=== PATIENT | female | born 1995 | race Caucasian/White ===

== ENCOUNTER 2018-11-24 09:12 | Emergency (ER) | payer BC ==
--- OUTSIDE RECORDS SUMMARY | 2018-11-24 09:14 | XMS REPORT | Continuity of Care Document ---
:1995 Author Organization Interface Problems Problem Status Onset Classification Date Comments Source Date Reported Discharge 06/20/2016 Katrin Diagnosis: 6 Hospital Ankle sprain BROKEN Active Katrin ANKLE//FALL 6 Hospital Medications Medication Details Route Status Patient Ordering Order Source Instructions Provider Date Methocarbamol 1,000 mg=2 Active Katrin 500 MG Oral tab, PO, 016 [facility] Tablet [Robaxin] QID, X 3 day, # 24 tab, 0 Refill(s) Famotidine 20 MG 20 mg=1 Active Katrin Oral Tablet tab, PO, 016 Hospital [Pepcid] BID, # 14 tab, 0 Refill(s) ibuprofen 800 mg 800 mg, Active Katrin oral tablet PO, TID, 016 [facility] PRN Pain, Take with food, X 3 day, # 10 tab, 0 Refill(s) Famotidine 20 MG 20 mg, 1 Inactive Katrin Oral Tablet tab, 016 Hospital [Pepcid] Route: PO, Drug form: TAB, ONCE, Dosing Weight 90.909, kg, Start date: 06/17/16 20:29:00 CDT, Stop date: 06/17/16 20:29:00 CDTNotes: (Same as: Pepcid) Robaxin 1,000 mg, Inactive Katrin 2 tab, 016 Hospital Route: PO, Drug form: TAB, ONCE, Dosing Weight 90.909, kg, Priority: STAT, Start date: 06/17/16 20:29:00 CDT, Stop date: 06/17/16 20:29:00 CDTNotes: (Same as:Robaxin ) Ibuprofen 800 mg, 1 Inactive Katrin tab, 016 Hospital Route: PO, Drug form: TAB, ONCE, Dosing Weight 90.909, kg, Priority: STAT, Start date: 06/17/16 20:29:00 CDT, Stop date: 06/17/16 20:29:00 CDTNotes: (Same as: Vale) Allergies, Adverse Reactions, Alerts Substance Category Reaction Severity Reaction Status Date Comments Source type Reported Immunizations Immunization Date Given Site Status Last Updated Comments Source Results Order Results Value Reference Date Interpretation Comments Source Name Range Ankle 3 Ankle 3 XR RIGHT ANKLE 3V [facility] views views DX 2016 - Hospital DX HISTORY: Right ankle pain after a fall. Read by: Alfredo May MD Dictated Date/time: 06/17/16 18:44 Electronically Signed by: Alfredo May MD 06/17/16 18:46 FINAL REPORT COMPARISON: None. FINDINGS: AP, lateral and oblique images of the right ankle demonstrate no acute bone or joint abnormality. IMPRESSION: No acute finding. SL: WR2-M Vital Signs Vital Sign Value Date Comments Source Weight 90.909 06/17/2016 [facility] BMI Calculated 34.4 06/17/2016 [facility] Height 162.56 cm 06/17/2016 [facility] Respitory Rate 20 06/17/2016 [facility] Heart Rate 85 06/17/2016 [facility] Temperature Oral (F) 98.2 F 06/17/2016 [facility] Systolic (mm Hg) 134 06/17/2016 [facility] Diastolic (mm Hg) 92 06/17/2016 [facility] Encounters Location Location Encounter Encounter Reason Attending ADM DC Status Source Details Type Number For Provider Date Date Visit [facility] Emergency [id number] Alvin 06/17 06/18 [facility] Arun Hoskins /2015 [facility] Procedures Procedure Code Date Perfomer Comments Source
--- NOTE | 2018-11-24 09:33 | ER ---
Nurse's Notes [facility] Name: Gary Mata Age: 23 yrs Sex: Female : 1995 Arrival Date: 11/24/2018 Time: 09:13 Bed 15 Private MD: Diego Elizondo B Diagnosis: Encounter for screening, unspecified Presentation: 11/24 09:23 Presenting complaint: Spotty vaginal bleeding x 5 days, here for HCG recheck. hb Transition of care: patient was not received from another setting of care. Onset of symptoms was November 24, 2018. Risk Assessment: Do you want to hurt yourself or someone else? Patient reports no desire to harm self or others. Initial Sepsis Screen: Does the patient meet any 2 criteria? No. Patient's initial sepsis screen is negative. Does the patient have a suspected source of infection? No. Patient's initial sepsis screen is negative. Care prior to arrival: None. 09:23 Method Of Arrival: Ambulatory hb 09:23 Acuity: CARLOS 4 hb Historical: - Allergies: 09:24 No Known Allergies; hb - Home Meds: 09:24 None [Active]; hb - PMHx: 09:24 None; hb - PSHx: 09:24 None; hb - Immunization history:: Adult Immunizations up to date. Vital Signs: 09:22 BP 146 / 96; Pulse 99; Resp 16; Temp 98.2; Pulse Ox 100% on R/A; Pain 0/10; hb ED Course: 09:13 Patient arrived in ED. as 09:14 Diego Elizondo MD is Private Physician. as 09:15 [facility]C [facility] kb 09:15 Ming Krishna MD is Attending Physician. kb 09:24 Triage completed. hb 09:31 Diego Elizondo MD is Referral Physician. kb Administered Medications: No medications were administered Outcome: :31 Discharge ordered by . kb 09:48 Patient left the ED. em Signatures: Sarina Justin FNP-C FNP-Miguelito Yip, IRON ASSORTER IRON ASSORTER em Giovanna Gomes Heather, RN RN hb
--- NOTE | 2018-11-24 09:33 | EDPHYS ---
Physician Documentation [facility] Name: Gary Mata Age: 23 yrs Sex: Female : 1995 Arrival Date: 11/24/2018 Time: 09:13 Bed 15 Private MD: Diego Elizondo B ED Physician Ming Krishna HPI: 11/24 09:27 This 23 yrs old Female presents to ER via Ambulatory with complaints of Needs kb HCG rechecked. 09:27 Pt has outpatient order for a HCG to be drawn. Order does not say urgent or stat so kb registration told the patient that it would have to be done Mon-Monday or she could sign into the ER. Pt reports she was seen by Dr Elizondo last week for spotting that started on Monday. States he could not detect FHT in office so she was sent for an US and HCG level. No FHT detected during US. Had HCG drawn on and was told by Dr Elizondo to have second level drawn today. Pt denies any new or worsening symptoms. . Severity of symptoms: At their worst the symptoms were mild in the emergency department the symptoms are unchanged. The patient has not experienced similar symptoms in the past. The patient has been recently seen by a physician: Dr. Elizondo. Historical: - Allergies: 09:24 No Known Allergies; hb - Home Meds: 09:24 None [Active]; hb - PMHx: 09:24 None; hb - PSHx: 09:24 None; hb - Immunization history:: Adult Immunizations up to date. ROS: 09:26 Constitutional: Negative for fever, chills, and weight loss, Cardiovascular: Negative kb for chest pain, palpitations, and edema, Respiratory: Negative for shortness of breath, cough, wheezing, and pleuritic chest pain, Abdomen/GI: Negative for abdominal pain, nausea, vomiting, diarrhea, and constipation, MS/Extremity: Negative for injury and deformity, Skin: Negative for injury, rash, and discoloration, Neuro: Negative for headache, weakness, numbness, tingling, and seizure. 09:26 : Positive for vaginal bleeding. Exam: 09:27 Constitutional: This is a well developed, well nourished patient who is awake, alert, kb and in no acute distress. Head/Face: Normocephalic, atraumatic. Chest/axilla: Normal chest wall appearance and motion. Nontender with no deformity. No lesions are appreciated. Cardiovascular: Regular rate and rhythm with a normal S1 and S2. No gallops, murmurs, or rubs. Normal PMI, no JVD. No pulse deficits. Respiratory: Lungs have equal breath sounds bilaterally, clear to auscultation and percussion. No rales, rhonchi or wheezes noted. No increased work of breathing, no retractions or nasal flaring. Abdomen/GI: Soft, non-tender, with normal bowel sounds. No distension or tympany. No guarding or rebound. No evidence of tenderness throughout. Skin: Warm, dry with normal turgor. Normal color with no rashes, no lesions, and no evidence of cellulitis. MS/ Extremity: Pulses equal, no cyanosis. Neurovascular intact. Full, normal range of motion. Neuro: Awake and alert, GCS 15, oriented to person, place, time, and situation. Cranial nerves II-XII grossly intact. Motor strength 5/5 in all extremities. Sensory grossly intact. Cerebellar exam normal. Normal gait. Vital Signs: 09:22 BP 146 / 96; Pulse 99; Resp 16; Temp 98.2; Pulse Ox 100% on R/A; Pain 0/10; hb MDM: 09:24 Patient medically screened. kb 09:24 Data reviewed: vital signs, nurses notes. Data interpreted: Pulse oximetry: on room air kb is 100 %. Interpretation: normal. Counseling: I had a detailed discussion with the patient and/or guardian regarding: the historical points, exam findings, and any diagnostic results supporting the discharge/admit diagnosis, the need for outpatient follow up, an OB/Gyne specialist, to return to the emergency department if symptoms worsen or persist or if there are any questions or concerns that arise at home. ED course: Pt does not want to have an ER charge for a repeat lab. Would rather call her OB. Educated that we would be happy to repeat her Hcg if she would like to have it done now. Pt does not want it done in the ER. . Administered Medications: No medications were administered Disposition: 09:31 Encounter for routine lab. karen Disposition: 11/24/18 09:31 Discharged to Home. Impression: Encounter for screening, unspecified. - Condition is Stable. - Medication Reconciliation Form, Thank You Letter, Antibiotic Education, Prescription Opioid Use form. - Follow up: Emergency Department; When: As needed; Reason: Worsening of condition. Follow up: Diego Elizondo MD; When: 1 - 2 days; Reason: Recheck today's complaints, Continuance of care, Re-evaluation by your physician. Addendum: 11/26/2018 07:31 Co-signature as Attending Physician, Ming Krishna MD I agree with the assessment and c pond plan of care. Signatures: Sarina Justin, TRANSPORTATION AIDE-C TRANSPORTATION AIDE-Ckb Ming Krishna MD MD cha Munoz, Edgar, RAILROAD HAND RAILROAD HAND em Amber Booker, RN RN Corrections: (The following items were deleted from the chart) 11/24 09:48 09:31 11/24/2018 09:31 Discharged to Home. Impression: Encounter for screening, em unspecified. Condition is Stable. Forms are Medication Reconciliation Form, Thank You Letter, Antibiotic Education, Prescription Opioid Use. Follow up: Emergency Department; When: As needed; Reason: Worsening of condition. Follow up: Diego Elizondo; When: 1 - 2 days; Reason: Recheck today's complaints, Continuance of care, Re-evaluation by your physician. kb
[2018-11-24 09:52] VITALS: BP 146/96; TEMP 98.2; O2SAT 100
== END 2018-11-24 09:48 | disposition home or self-care (01) ==
LOC: ER 09:12
DX: Z13.9 Encounter for screening, unspecified (principal)
CPT/HCPCS: 99281

== ENCOUNTER 2018-11-25 17:42 | Observation (INO) | payer BC ==
--- OUTSIDE RECORDS SUMMARY | 2018-11-25 17:43 | XMS REPORT | Continuity of Care Document ---
:1995 Author Organization Interface Problems Problem Status Onset Classification Date Comments Source Date Reported Discharge 06/20/2016 Katrin Diagnosis: 6 Hospital Ankle sprain BROKEN Active Katrin ANKLE//FALL 6 Hospital Medications Medication Details Route Status Patient Ordering Order Source Instructions Provider Date Methocarbamol 1,000 mg=2 Active Katrin 500 MG Oral tab, PO, 016 [facility] Tablet [Robaxin] QID, X 3 day, # 24 tab, 0 Refill(s) Famotidine 20 MG 20 mg=1 Active Katrin Oral Tablet tab, PO, 016 Hospital [Pepcid] BID, # 14 tab, 0 Refill(s) ibuprofen 800 mg 800 mg, Active Katirn oral tablet PO, TID, 016 [facility] PRN Pain, Take with food, X [...] 3 Ankle 3 XR RIGHT ANKLE 3V [facility] views views DX 2016 - Hospital [...] Value Date Comments Source Weight 90.909 06/17/2016 [facility] BMI Calculated 34.4 06/17/2016 [facility] Height 162.56 cm 06/17/2016 [facility] Respitory Rate 20 06/17/2016 [facility] Heart Rate 85 06/17/2016 [facility] Temperature Oral (F) 98.2 F 06/17/2016 [facility] Systolic (mm Hg) 134 06/17/2016 [facility] Diastolic (mm Hg) 92 06/17/2016 [facility] Encounters Location Location Encounter Encounter Reason Attending ADM DC Status Source Details Type Number For Provider Date Date Visit [facility] Emergency [id number] Alvin 06/17 06/18 [facility] Arun Hoskins /2015 [facility] Procedures Procedure Code Date Perfomer Comments Source
[2018-11-25 18:39] LABS: Absolute Lymphocytes (CBC) 1.7 K/uL (0.7-4.9); Absolute Monocytes 0.7 K/uL (0.1-1.3); Absolute Neutrophil 6.3 K/uL (1.8-8.0); Basophils % 0.4 % (0-1.3); Eosinophils % 1.6 % (0-4.4); Hematocrit 42.2 % (36.0-45.0); Lymphocytes % 18.6 % (15.3-44.8); MPV 9.3 fL (7.6-11.3); Monocytes % 8.4 % (3.3-12.3); RBC Red Blood Cell Count 4.99 M/uL (3.86-4.86)
[2018-11-25] MEDS ORDERED: NA CHLORIDE 0.9% 1,000 ML ONE (18:43)
[2018-11-25 19:10] LABS: BUN Blood Urea Nitrogen 7 mg/dL (7-18); Bicarbonate 27 mmol/L (21-32); Glucose Level 102 mg/dL (74-106); HCG, Quantitative 1801 mIU/mL (1-3); Potassium 3.8 mmol/L (3.5-5.1); Sodium Level 141 mmol/L (136-145)
--- NOTE | 2018-11-25 19:10 | RAD REPORT ---
EXAM DESCRIPTION: US - Transvaginal OB - 11/25/2018 6:53 pm CLINICAL HISTORY: ABD CRAMPING, COMPARISON: Transvaginal OB dated 11/22/2018 FINDINGS: A single gestational sac is seen within the uterus. The shape of the sac is irregular and low in position near the cervical internal os. Fluid and slight widening of the internal os is presen t up to 3 mm. Within the sac is a single pole with crown-rump length of 10 mm, correlating to e stimated gestational age of 7 weeks 1 day gestational age. Despite prolonged sonographic assessment, no cardiac activity is seen in the embryo. The placenta is not yet developed due to early gestational age. The maternal adnexa are within normal limits. IMPRESSION: Findings are most compatible with inevitable spontaneous .
[2018-11-25 19:13] LABS: Urine Appearance CLOUDY; Urine Blood 3+ (NEG); Urine Color RED; Urine Glucose NEGATIVE (NEG); Urine Protein 1+ (NEG); Urine Specific Gravity 1.025 (1.005-1.030); Urine pH 5.5 (5.0-7.0)
[2018-11-25] MEDS ORDERED: ONDANSETRON 4 MG/2 ML VIAL ONE (19:17)
[2018-11-25] MEDS ORDERED: MORPHINE 4 MG/ML SYR ONE ×2 (19:17→19:46)
[2018-11-25 19:19] LABS: Urine Bilirubin NEGATIVE (NEG)
[2018-11-25 19:20] LABS: Urine Microscopic Reflex ORDER UMIC
[2018-11-25 19:26] LABS: Urine RBC LOADED /HPF (NONE SEEN)
--- NOTE | 2018-11-25 19:29 | EDPHYS ---
Physician Documentation [facility] Name: Gary Mata Age: 23 yrs Sex: Female : 1995 Arrival Date: 11/25/2018 Time: 17:42 Bed 26 Private MD: Diego Elizondo B ED Physician Ming Krishna HPI: 11/25 19:04 This 23 yrs old Female presents to ER via Ambulatory with complaints of fabi Vaginal Bleeding, + Preg <12wks. 19:04 The patient presents to the emergency department with vaginal bleeding, that is heavy. fabi The estimated gestational age is 11 weeks. course: care: private OB physician, Dr. Dr. ELIZONDO. Previous pregnancies: the patient has never been . Associated signs and symptoms: The patient has no apparent associated signs or symptoms. 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 - Social history:: Smoking status: Patient/guardian denies using tobacco. - Ebola Screening: : No symptoms or risks identified at this time. - Family history:: not pertinent. ROS: 19:04 Constitutional: Negative for fever, chills, and weight loss, Eyes: Negative for injury, fabi pain, redness, and discharge, ENT: Negative for injury, pain, and discharge, Neck: Negative for injury, pain, and swelling, Cardiovascular: Negative for chest pain, palpitations, and edema, Respiratory: Negative for shortness of breath, cough, wheezing, and pleuritic chest pain, Abdomen/GI: Negative for abdominal pain, nausea, vomiting, diarrhea, and constipation, Back: Negative for injury and pain, MS/Extremity: Negative for injury and deformity, Skin: Negative for injury, rash, and discoloration, Neuro: Negative for headache, weakness, numbness, tingling, and seizure, Psych: Negative for depression, anxiety, suicide ideation, homicidal ideation, and hallucinations, Allergy/Immunology: Negative for hives, rash, and allergies, Endocrine: Negative for neck swelling, polydipsia, polyuria, polyphagia, and marked weight changes, Hematologic/Lymphatic: Negative for swollen nodes, abnormal bleeding, and unusual bruising. 19:04 : Positive for pelvic pain, vaginal bleeding. Exam: 19:04 Constitutional: This is a well developed, well nourished patient who is awake, alert, fabi and in no acute distress. Head/Face: Normocephalic, atraumatic. Eyes: Pupils equal round and reactive to light, extra-ocular motions intact. Lids and lashes normal. Conjunctiva and sclera are non-icteric and not injected. Cornea within normal limits. Periorbital areas with no swelling, redness, or edema. ENT: Nares patent. No nasal discharge, no septal abnormalities noted. Tympanic membranes are normal and external auditory canals are clear. Oropharynx with no redness, swelling, or masses, exudates, or evidence of obstruction, uvula midline. Mucous membranes moist. Neck: Trachea midline, no thyromegaly or masses palpated, and no cervical lymphadenopathy. Supple, full range of motion without nuchal rigidity, or vertebral point tenderness. No Meningismus. Chest/axilla: Normal chest wall appearance and motion. Nontender with no deformity. No lesions are appreciated. Cardiovascular: Regular rate and rhythm with a normal S1 and S2. No gallops, murmurs, or rubs. Normal PMI, no JVD. No pulse deficits. Respiratory: Lungs have equal breath sounds bilaterally, clear to auscultation and percussion. No rales, rhonchi or wheezes noted. No increased work of breathing, no retractions or nasal flaring. Abdomen/GI: Soft, non-tender, with normal bowel sounds. No distension or tympany. No guarding or rebound. No evidence of tenderness throughout. Back: No spinal tenderness. No costovertebral tenderness. Full range of motion. Skin: Warm, dry with normal turgor. Normal color with no rashes, no lesions, and no evidence of cellulitis. MS/ Extremity: Pulses equal, no cyanosis. Neurovascular intact. Full, normal range of motion. Neuro: Awake and alert, GCS 15, oriented to person, place, time, and situation. Cranial nerves II-XII grossly intact. Motor strength 5/5 in all extremities. Sensory grossly intact. Cerebellar exam normal. Normal gait. Psych: Awake, alert, with orientation to person, place and time. Behavior, mood, and affect are within normal limits. 19:22 : Pelvic Exam: External exam: is normal, Speculum exam: mild bleeding, moderate fabi bleeding, bimanual exam reveals os that is open, Gravid exam: Fundal height: not consistent with gestational age, Bladder: is normal. Vital Signs: 17:53 Pulse 87; Resp 16; Temp 99.4; Pulse Ox 98% on R/A; Weight 108.86 kg; Height 5 ft. 6 in. la1 (167.64 cm); Pain 7/10; 17:54 BP 136 / 98; la1 18:50 BP 104 / 87; Pulse 83; Resp 18 S; Pulse Ox 100% on R/A; ca1 19:53 BP 122 / 87; Pulse 78; Resp 18 S; Pulse Ox 100% on R/A; ca1 17:53 Body Mass Index 38.74 (108.86 kg, 167.64 cm) la1 MDM: 17:56 Patient medically screened. [facility] 19:06 Data reviewed: vital signs, nurses notes, lab test result(s), radiologic studies, [facility] ultrasound. 11/25 18:00 Order name: Quantitative Hcg; Complete Time: 19:19 [facility] 11/25 18:00 Order name: Abo/rh Typing; Complete Time: 18:58 [facility] 11/25 18:00 Order name: Basic Metabolic Panel; Complete Time: 19:19 [facility] 11/25 18:00 Order name: CBC with Diff; Complete Time: 18:58 [facility] 11/25 18:00 Order name: Urine Culture [facility] 11/25 18:43 Order name: UA bd 11/25 18:00 Order name: US Transvaginal Ob; Complete Time: 19:19 [facility] 11/25 19:21 Order name: Urine Microscopic Only [facility] 11/25 19:49 Order name: ABO/RH no charge [facility] 11/25 18:00 Order name: Urine Test (obtain specimen); Complete Time: 18:55 [facility] 11/25 18:00 Order name: IV Saline Lock; Complete Time: 18:28 [facility] 11/25 18:00 Order name: Labs collected and sent; Complete Time: 18:28 [facility] 11/25 18:00 Order name: NPO; Complete Time: 18:29 [facility] 11/25 18:00 Order name: Urine Dipstick-Ancillary (obtain specimen); Complete Time: 18:55 [facility] 11/25 18:43 Order name: Labs - recollect needed; Complete Time: 19:09 11/25 19:07 Order name: Pelvic Exam Setup; Complete Time: 19:21 [facility] Administered Medications: 18:20 Drug: NS 0.9% 1000 ml Route: IV; Rate: 1 bolus; Site: right antecubital; ca1 19:20 Follow up: Response: No adverse reaction; IV Status: Completed infusion ca1 19:10 Drug: Zofran 4 mg Route: IVP; Site: right antecubital; ca1 20:09 Follow up: Response: No adverse reaction; Nausea is decreased ca1 19:12 Drug: morphine 4 mg Route: IVP; Site: right antecubital; ca1 19:40 Follow up: Response: Pain is unchanged, physician notified ca1 19:41 Drug: Rocephin - (cefTRIAXone) 1 grams Route: IVPB; Infused Over: 30 mins; Site: right ca1 antecubital; 20:09 Follow up: IV Status: IVP per pharmacy protocol ca1 19:41 Drug: morphine 4 mg Route: IVP; Site: right antecubital; ca1 20:09 Follow up: Response: No adverse reaction; Pain is decreased ca1 19:50 Drug: Lactated Ringers Solution 1000 ml Route: IV; Rate: 125 ml/hr; Site: right ca1 antecubital; 20:07 Follow up: Response: Med continued at admission ca1 20:08 Follow up: IV Status: Infusion continued upon admission ca1 19:50 Drug: Pitocin 20 units Route: IV; Rate: calculated rate; Site: right antecubital; ca1 20:08 Follow up: IV Status: Infusion continued upon admission ca1 Disposition: 11/25/18 19:28 Hospitalization ordered by Diego Elizondo for Observation. Preliminary diagnosis is Incomplete spontaneous with other complications - PAIN. - [facility]. - Status is Observation. ca1 - Condition is Stable. - Problem is new. - Symptoms have improved. UTI on Admission? No Signatures: Dispatcher [employer] EDMS Starr Syed Corey, MD MD cha Attema, Lee RN RN la1 Dary Velez RN RN Leonila Vela RN RN ca1 Corrections: (The following items were deleted from the chart) 19:49 19:28 Hospitalization Ordered by Diego Elizondo MD for Observation. Preliminary cg diagnosis is Incomplete spontaneous with other complications - PAIN. Bed [facility]. Status is Observation. Condition is Stable. Problem is new. Symptoms have improved. UTI on Admission? No. fabi 20:37 19:49 11/25/2018 19:28 Hospitalization Ordered by Diego Elizondo MD for Observation. ca1 Preliminary diagnosis is Incomplete spontaneous with other complications - PAIN. Bed requested for [facility]. Status is Observation. Condition is Stable. Problem is new. Symptoms have improved. UTI on Admission? No. cg
--- NOTE | 2018-11-25 19:29 | ER ---
Nurse's Notes [facility] Name: Gary Mata Age: 23 yrs Sex: Female : 1995 Arrival Date: 11/25/2018 Time: 17:42 Bed 26 Private MD: Diego Elizondo B Diagnosis: Incomplete spontaneous with other complications-PAIN Presentation: 11/25 17:51 Presenting complaint: Patient states: I have been spotting since Monday and cramping la1 since this morning but the pain got worse around 1600, the spotting has also increased. Transition of care: patient was not received from another setting of care. Onset of symptoms was November 25, 2018. Risk Assessment: Do you want to hurt yourself or someone else? Patient reports no desire to harm self or others. Initial Sepsis Screen: Does the patient meet any 2 criteria? No. Patient's initial sepsis screen is negative. Does the patient have a suspected source of infection? No. Patient's initial sepsis screen is negative. Care prior to arrival: None. 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 - Social history:: Smoking status: Patient/guardian denies using tobacco. - Ebola Screening: : No symptoms or risks identified at this time. - Family history:: not pertinent. Screenin:55 Abuse screen: Denies threats or abuse. Denies injuries from another. Nutritional ca1 screening: No deficits noted. Tuberculosis screening: No symptoms or risk factors identified. Fall Risk None identified. Assessment: 17:55 General: Appears in no apparent distress. comfortable, Behavior is calm, cooperative, ca1 appropriate for age. Pain: Complains of pain in right lower quadrant and left lower quadrant Pain does not radiate. Pain currently is 7 out of 10 on a pain scale. Quality of pain is described as crampy, Pain began 2-3 days ago. Neuro: Level of Consciousness is awake, alert, obeys commands, Oriented to person, place, time, situation. Cardiovascular: Heart tones S1 S2 present Capillary refill < 3 seconds Patient's skin is warm and dry. Respiratory: Airway is patent Respiratory effort is even, unlabored, Respiratory pattern is regular, symmetrical, Breath sounds are clear bilaterally. GI: Abdomen is round non-distended, Bowel sounds present X 4 quads. Abd is soft X 4 quads Abdomen is tender to palpation in right lower quadrant and left lower quadrant Reports cramping, nausea. : Reports vaginal bleeding that is with clots, spotty, since . EENT: No deficits noted. No signs and/or symptoms were reported regarding the EENT system. Derm: Skin is intact, is healthy with good turgor, Skin is pink, warm \T\ dry. Musculoskeletal: Circulation, motion, and sensation intact. Capillary refill < 3 seconds. 18:50 Reassessment: Patient appears in no apparent distress at this time. Patient and/or ca1 family updated on plan of care and expected duration. Pain level reassessed. Patient is alert, oriented x 3, equal unlabored respirations, skin warm/dry/pink. 19:45 Reassessment: Patient appears in no apparent distress at this time. Patient and/or ca1 family updated on plan of care and expected duration. Pain level reassessed. Patient is alert, oriented x 3, equal unlabored respirations, skin warm/dry/pink. Vital Signs: 17:53 Pulse 87; Resp 16; Temp 99.4; Pulse Ox 98% on R/A; Weight 108.86 kg; Height 5 ft. 6 in. la1 (167.64 cm); Pain 7/10; 17:54 BP 136 / 98; la1 18:50 BP 104 / 87; Pulse 83; Resp 18 S; Pulse Ox 100% on R/A; ca1 19:53 BP 122 / 87; Pulse 78; Resp 18 S; Pulse Ox 100% on R/A; ca1 17:53 Body Mass Index 38.74 (108.86 kg, 167.64 cm) la1 Vitals: 18:30 Heart Tones none. ca1 ED Course: 17:42 Patient arrived in ED. as 17:43 Diego Elizondo MD is Private Physician. as 17:52 Triage completed. la1 17:53 Arm band placed on left wrist. la1 17:55 Patient has correct armband on for positive identification. Placed in gown. Bed in low ca1 position. Call light in reach. Side rails up X 1. Pulse ox on. NIBP on. Warm blanket given. 17:56 Ming Krishna MD is Attending Physician. [facility] 18:06 Leonila Vela RN is Primary Nurse. ca1 18:30 Initial lab(s) drawn, by me, sent to lab. Inserted saline lock: 20 gauge in right jp3 antecubital area, using aseptic technique. Blood collected. 18:45 Urine collected: clean catch specimen, clear, tea colored, blood tinged. jp3 18:52 US Transvaginal Ob In Process Unspecified. EDMS 19:00 Assist provider with pelvic exam: Set up pelvic tray. Performed by Ming Krishna MD ca1 Vaginal packing inserted. Patient tolerated. 19:05 Repeat lab(s) drawn. by me, sent to lab. jp3 19:26 Diego Elizondo MD is Hospitalizing Provider. [facility] 20:04 Patient admitted, IV remains in place. ca1 Administered Medications: 18:20 Drug: NS 0.9% 1000 ml Route: IV; Rate: 1 bolus; Site: right antecubital; ca1 19:20 Follow up: Response: No adverse reaction; IV Status: Completed infusion ca1 19:10 Drug: Zofran 4 mg Route: IVP; Site: right antecubital; ca1 20:09 Follow up: Response: No adverse reaction; Nausea is decreased ca1 19:12 Drug: morphine 4 mg Route: IVP; Site: right antecubital; ca1 19:40 Follow up: Response: Pain is unchanged, physician notified ca1 19:41 Drug: Rocephin - (cefTRIAXone) 1 grams Route: IVPB; Infused Over: 30 mins; Site: right ca1 antecubital; 20:09 Follow up: IV Status: IVP per pharmacy protocol ca1 19:41 Drug: morphine 4 mg Route: IVP; Site: right antecubital; ca1 20:09 Follow up: Response: No adverse reaction; Pain is decreased ca1 19:50 Drug: Lactated Ringers Solution 1000 ml Route: IV; Rate: 125 ml/hr; Site: right ca1 antecubital; 20:07 Follow up: Response: Med continued at admission ca1 20:08 Follow up: IV Status: Infusion continued upon admission ca1 19:50 Drug: Pitocin 20 units Route: IV; Rate: calculated rate; Site: right antecubital; ca1 20:08 Follow up: IV Status: Infusion continued upon admission ca1 Outcome: 19:28 Decision to Hospitalize by Provider. [facility] 20:10 Admitted to L \T\ D, accompanied by nurse, family with patient, via stretcher, room [address], with chart, Report called to KYLE Veronica 20:10 Condition: stable 20:10 Instructed on the need for admit. 20:37 Patient left the ED. ca1 Signatures: Dispatcher [employer] EDMS Ming Krishna MD MD cha Martinez, Amelia as Attema, Lee, RN RN ally1 Rio Minor jp3 Leonila Vela RN RN ca1 Corrections: (The following items were deleted from the chart) 20:15 20:10 Admitted to L \T\ D, accompanied by nurse, family with patient, via stretcher, room ca1 297 [facility], ca1
[2018-11-25 19:31] LABS: Calcium Oxalate Crystals- Ur FEW (NONE SEEN); Urine Bacteria 20-50 /HPF (<20); Urine Culture Reflex Order NOT NEEDED
[2018-11-25] MEDS ORDERED: OXYTOCIN 10 UNIT/ML ML IV ONE (19:56)
[2018-11-25] MEDS ORDERED: Ringers Lactate 1,000 ML IV ONE (19:57)
[2018-11-25] MEDS ORDERED: CEFTRIAXONE/SWI 1gm 1 GM/10 ML SYR ONE (19:57)
[2018-11-25 20:46] VITALS: O2SAT 100
[2018-11-25] MEDS ORDERED: ACETAMINOPHEN 500 MG TAB PO PRN (21:01)
[2018-11-25] MEDS ORDERED: Ringers Lactate 1,000 ML IV SCH (21:01)
[2018-11-25] MEDS ORDERED: ONDANSETRON 4 MG/2 ML VIAL IV PRN (21:01)
[2018-11-25] MEDS ORDERED: KETOROLAC 30 MG/ML INJ IV ONE (21:04)
[2018-11-25 22:07] VITALS: BMI 38.7
[2018-11-25] MEDS ORDERED: PROMETHAZINE 25 MG/ML VIAL IM ONE (22:15)
[2018-11-25] MEDS: MORPHINE 4 MG/ML SYR IV PRN (22:29)
[2018-11-26] MEDS ORDERED: PROMETHAZINE HCL 50 MG/ML AMP IM PRN (00:12)
[2018-11-26 04:32] VITALS: TEMP 98
[2018-11-26 05:31] LABS: Absolute Lymphocytes (CBC) 1.7 K/uL (0.7-4.9); Absolute Monocytes 0.6 K/uL (0.1-1.3); Absolute Neutrophil 4.8 K/uL (1.8-8.0); Basophils % 0.5 % (0-1.3); Eosinophils % 1.5 % (0-4.4); Hematocrit 35.9 % (36.0-45.0); MPV 8.8 fL (7.6-11.3); Monocytes % 8.8 % (3.3-12.3); RBC Red Blood Cell Count 4.16 M/uL (3.86-4.86)
[2018-11-26 05:49] LABS: BUN Blood Urea Nitrogen 7 mg/dL (7-18); Bicarbonate 27 mmol/L (21-32); Glucose Level 87 mg/dL (74-106); Potassium 3.8 mmol/L (3.5-5.1); Sodium Level 141 mmol/L (136-145)
[2018-11-26] MEDS: MORPHINE 4 MG/ML SYR IV PRN (07:25)
[2018-11-26 07:51] VITALS: BP 96/68
--- NOTE | 2018-11-26 08:01 | RAD REPORT ---
EXAM DESCRIPTION: US - Transvaginal OB - 11/26/2018 7:39 am CLINICAL HISTORY: Vaginal bleeding, incomplete miscarriage COMPARISON: None. FINDINGS: Uterus is 9.4 x 4.5 x 8.1 cm. No myometrial mass. Neither ovary was identifiable. No adnexal mass seen. No blood or fluid in the cul de sac. No gestational sac or sac remnant identified in the endometrial cavity. Hemorrhagic byproducts are pr esent in the lower uterine segment and cervical canal. IMPRESSION: Hemorrhagic byproducts in the cervical canal with no gestational sac or sac remnant iden tified. Nonvisualization of the ovaries. No adnexal masses. No blood or fluid in the cul de sac.
--- NOTE | 2018-11-26 11:32 | PREOPHP ---
Date of Admission: 11/25/2018 A 23-year-old primigravida, first trimester, incomplete , was seen in the emergency room by Adi Krishna, transferred upstairs. She was having significant discomfort, mild bleeding. She was st arted on oxytocin. She passed a fairly large clot and then after that basically nothing there. Pain level went down. The patient is resting comfortably this morning. All vital signs are normal. H a nd H went from 42 to 35, which I think she was hemoconcentrated on admission. She is Rh positive. F amily history is noncontributory. Physical exam is basically completely normal. Diagnosis: First trimester incomplete , admitted for observation, possible surgical interven tion. JEANNETTE/CARSON Voice ID: [id number]
--- NOTE | 2018-11-26 11:42 | DS ---
Date of Discharge: 11/26/2018 Hospital Course: A 23-year-old primigravida, less than 12 weeks' gestation. The patient was seen in the emergency room with cramping and bleeding, had been seen earlier in the week in my office. Rh p ositive blood type. Ultrasound demonstrated a 7-week irregular sac in the lower uterine segment. Sh robert was having significant pain, was admitted for observation. Pitocin was started and the uterus evac uated itself this morning. Minimal bleeding. Vital signs are all stable. Pain level was basically 0. After consultation, we will get an ultrasound and if the uterus is empty, we will dismiss the pat ient. She is to take doxycycline twice a day for 3 days, to be seen in my office later this week or early next week. To report any temperature elevation of 100 degrees or greater, severe pain, heavy b leeding, or any other type of abnormalities. Final Diagnoses: First trimester, now apparently complete spontaneous , Rh positive, therefo re, no RhoGAM needed. Doxycycline for prophylaxis. JEANNETTE/CARSON Voice ID: [id number] Report ID: [id number]
[2018-11-26] MEDS ORDERED: OXYTOCIN/LR 20 UNIT/1,000 ML BAG IV SCH (21:00)
== END 2018-11-26 09:10 | disposition home or self-care (01) ==
LOC: ER 17:42 → ERHOLD 19:32 → 2ND-WC 20:02
PROVIDERS: ADMIT Specialist; ATTEND Specialist
DX: O03.9 Complete or unspecified spontaneous abortion without complication (principal); E03.9 Hypothyroidism, unspecified
CPT/HCPCS: 36415; 76817; 80048; 81003; 81015; 84702; 85025; 86900; 86901; 87086; 87088; 96361; 96365; 96375; 99285; G0378; J0696; J2405; J2550; J2590; J7030

== ENCOUNTER 2020-04-21 15:39 | Inpatient (IN) | payer BC, OTHER ==
[~2020-04-21 15:39] MED LIST: BUTORPHANOL 1 MG/ML INJ IV PRN; CARBOPROST TROME 250 MCG/ML IM PRN; METHYLERGONOVINE 0.2MG/ML AMP IM PRN; PROMETHAZINE INJ 25 MG/ML AMP IV PRN; Ringers Lactate 1,000 ML IV PRN
--- OUTSIDE RECORDS SUMMARY | 2020-04-21 15:41 | XMS REPORT | Continuity of Care Document ---
:1995 Author Organization [employer] Care Team Providers Name Role Phone [facility] Unavailable Un available Problems Problem Status Onset Classification Date Comments Sourc e Date Reported Discharge 06/20/2016 KATINA Wilkes Diagnosis: 6 Hospital Ankle sprain BROKEN Active Katrin ANKLE//FALL 6 Hospital Medications Medication Details Route Status Patient Ordering Order Source Instructions Provider Date Methocarbamol 1,000 mg = Active Katrin 500 MG Oral 2 tab, PO, [address] [place] [address] Tablet [Robaxin] QID, X 3 day, # 24 tab, 0 Refill(s) Famotidine 20 MG 20 mg = 1 Active Ka ty Oral Tablet tab, PO, [address] [place] [address] [Pepcid] BID, # 14 tab, 0 Refill(s) ibuprofen 800 mg 800 mg, Active Katrin oral tablet PO, TID, [address] [place] [address] PRN Pain, Take with food, X 3 day, # 10 tab, 0 Refill(s) Famotidine 20 MG Notes: Inactive Lata y Oral Tablet (Same as: [address] [place] [address] [Pepcid] Pepcid) Robaxin Notes: Inactive Katrin (Same [address] [place] [address] as:Robaxin ) Ibuprofen Notes: Inactive Katrin (Same as: [address] [place] [address] Motrin) Allergies, Adverse Reactions, Alerts No Known Medication Allergies Immunizations No Data Provided for This Section Results No Data Provided for This Section Pathology Reports No Data Provided for This Section Diagnostic Reports Report Value Date Source Ankle 3 views DX XR RIGHT ANKLE 3V 06/17/2016 [facility] HISTORY: Right ankle pain after a fall. COMPARISON: None. FINDINGS: AP, lateral and ob lique images of the right ankle demonstrate no acute bone or joint abnormality. IMPRESSION: No acute finding. SL: WR2-M Consultation Notes No Data Provided for This Section Discharge Summaries No Data Provided for This Section History and Physicals No Data Provided for This Section Vital Signs Vital Sign Value Date Comments Source Weight 90.909 06/17/2016 Katrin Dickens yasir BMI Calculated 34.4 06/17/2016 Katrin Jules [facility] Height 162.56 cm [facility]/17[facility] Rate 20 06/17/2016 Katrin Jules [facility] Heart Rate 85 06/17/2016 Katrin [facility] Temperature Oral (F) 98.2 F 06/17/2016 [facility] Systolic (mm Hg) 134 06/17/2016 [facility] pital Diastolic (mm Hg) 92 06/17/2016 [facility] spital Encounters Location Location Encounter Encounter Reason Attending ADM DC Stat us Source Details Type Number For Provider Date Date [facility] [id number] Alvin 06/17 06/18 Katrin Barrosodin /2015 [facility] Procedures No Data Provided for This Section Assessment and Plan No Data Provided for This Section Plan of Care No Data Provided for This Section Social History Social History Date Source No data available for this 06/18/2016 Katrin Jules [facility] section Family History No Data Provided for This Section Advance Directives No Data Provided for This Section Functional Status No Data Provided for This Section
--- OUTSIDE RECORDS SUMMARY | 2020-04-21 15:41 | XMS REPORT | Continuity of Care Document ---
:1995 Author Organization [facility] t Address [address] [place] [address] Care Team Providers Name Role Phone Juan R Hoskins Attending Clinician Problems Condition Condition Condition Status Onset Resolution Last Treating Co mments Source Name Details Category Date Date Treatment Clinician Date BROKEN Diagnosis Active 2015-082016-06-17 Mem oria ANKLE//FAL 0-28 21:59:00 l L BROKEN 00:00: Arun ANKLE//FAL 00 L Active 06/17/2016 [facility] Discharge Problem 2015-082016-06-20 2016-06-20 Memoria Diagnosis: 0-28 04:52:41 04:52:41 l Ankle 05:00: Arun sprain Discharge 00 Diagnosis: Ankle sprain 06/17/2016 06/20/2016 [facility] Allergies, Adverse Reactions, Alerts This patient has no known allergies or adverse reactions. Social History Social Habit Start Date Stop Date Quantity Comments Source Social History 2016-06-18 2016-06-18 [facility] 02:13:00 02:13:00 Medications Ordered Filled Start Stop Current Ordering Indication Dosage Frequency Signature Comments Components Source Medication Medication Date Date Medication? Clinician (SIG) Name Name Methocarbam 2015-08 Yes 1,000 mg = Memoria ol 500 MG 0-29 2 tab, PO, l Oral Tablet 01:54: QID, X 3 He rmann [Robaxin] 00 day, # 24 tab, 0 Refill(s) Famotidine 2015-08 Yes 20 mg = 1 Me moria 20 MG Oral 0-29 tab, PO, l Tablet 01:54: BID, # 14 Rip n [Pepcid] 00 tab, 0 Refill(s) ibuprofen 2015-08 Yes 800 mg, Memor ia 800 mg oral 0-29 PO, TID, l tablet 01:53: PRN Pain, Rip n 00 Take with food, X 3 day, # 10 tab, 0 Refill(s) Famotidine 2015-08 No Notes: Memor ia 20 MG Oral 0-29 (Same as: l Tablet 01:29: Pepcid) [place] [Pepcid] 00 Robaxin 2015-08 No Notes: Memoria 0-29 (Same l 01:29: as:Robaxin Arun 00 ) Ibuprofen 2015-08 No Notes: Memori a 0-29 (Same as: l 01:29: Motrin) Arun 00 Vital Signs Vital Name Observation Time Observation Value Comments Source Weight 2016-06-17 23:24:00 [facility] BMI Calculated 2016-06-17 23:24:00 Memori al [place] Height 2016-06-17 23:24:00 162.56 cm [facility] Respitory Rate 2016-06-17 23:24:00 Memori al Arun Heart Rate 2016-06-17 23:24:00 [facility] Temperature Oral (F) 2016-06-17 23:24:00 98.2 F [facility] Systolic (mm Hg) 2016-06-17 23:24:00 August rial Arun Diastolic (mm Hg) 2016-06-17 23:24:00 Mem orial Arun Procedures This patient has no known procedures. Encounters Start End Encounter Admission Attending Care Care Encounter Source Date/Time Date/Time Type Type Clinicians Facility Department ID 2016-06-17 2016-06-17 Outpatient [facility] [id number] 18:14:00 21:13:00 Alvin [id number] Juan R [id number] 5.9 Results This patient has no known results.
[2020-04-21] MEDS ORDERED: miSOPROStoL 100 MCG TAB VAG PRN (15:43)
[2020-04-21] MEDS ORDERED: Ringers Lactate 1,000 ML IV SCH (16:00)
[2020-04-21] MEDS ORDERED: OXYTOCIN/LR 20 UNIT/1,000 ML BAG IV SCH (16:00)
[2020-04-21] MEDS ORDERED: miSOPROStoL 100 MCG TAB ONE (16:02)
[2020-04-21 16:34] VITALS: BMI 47.2
[2020-04-21 16:48] LABS: Absolute Lymphocytes (CBC) 1.9 K/uL (0.7-4.9); Basophils % 0.2 % (0-1.3); Hematocrit 39.1 % (36.0-45.0); Lymphocytes % 14.4 % (15.3-44.8); RBC Red Blood Cell Count 4.58 M/uL (3.86-4.86)
[2020-04-21] MEDS ORDERED: NA CIT/CITRIC AC 30 ML ORAL UDC PO ONE (19:18)
--- NOTE | 2020-04-21 20:12 | PREOPHP ---
Date of Admission: 04/21/2020 History Of Present Illness: A 25-year-old 2, para 0, at 38 weeks 6 days, 1.5 cm vertex, -1 t o -2 station, 50% effaced, 50 mcg of Cytotec inserted. We will insert 50 mcg q.6 hours for 3 doses a nd then begin Pitocin sometime tomorrow. Full labor talk given. We have discussed pros and cons of Cytotec and possible risks and complications. The patient is Rh positive, immune to rubella. Negati ve beta strep screen. COVID status is pending. Anticipate delivery sometime tomorrow. Otherwise, t he history and physical is the same. No relevant family history. Physical Examination: HEENT: Clear. Pupils equal, round, reactive to light and accommodation. Conjunctivae well perfused . No oral, lingual, or buccal lesions. Chest and Lungs: Clear. Heart: Without murmurs, thrills, heaves, or rubs. Breasts: Without masses on previous visits. Abdomen: Term size. The baby is vertex. Extremities: Clear with +1 edema, but normal reflexes and no signs of preeclampsia at this point. W e will monitor of course. Assessment And Plan: Admit for stabilization and delivery. JEANNETTE/CARSON Voice ID: [id number]
[2020-04-21] MEDS ORDERED: FENTANYL/BUPIVACAINE/NS/PF 200 MCG/100 ML BAG EP PRN (22:08)
[2020-04-21] MEDS ORDERED: BUPIVACAINE 0.25% PF 30 ML VIAL SQ ONE (22:10)
[2020-04-21] MEDS ORDERED: FENTANYL CITR 100 MCG/2 ML IV ONE (22:10)
[2020-04-22 01:54] LABS: RPR (Rapid Plasma Reagin) NON-REACT (NON-REACT)
[2020-04-22] MEDS ORDERED: CARBOPROST TROME 250 MCG/ML IM ONE (02:26)
[2020-04-22] MEDS ORDERED: METHYLERGONOVINE 0.2MG/ML AMP IM ONE (02:26)
[2020-04-22] MEDS ORDERED: LIDOCAINE 1% MPF 30 ML VIAL ONE (03:10)
[2020-04-22] MEDS ORDERED: ACETAMINOPHEN 500 MG TAB PO PRN (03:18)
[2020-04-22] MEDS ORDERED: Oxycodone HCl/Acetaminophen 1 TAB TAB PO PRN (03:18)
[2020-04-22] MEDS ORDERED: BISACODYL 10 MG RECTAL SUPP RC PRN (03:18)
[2020-04-22] MEDS ORDERED: DIPHENHYDRAMINE 25 MG TAB/CAP PO PRN (03:18)
[2020-04-22] MEDS ORDERED: DOCUSATE NA/SENNA CONC 1 TAB PO PRN (03:18)
--- NOTE | 2020-04-22 03:58 | PN ---
The patient had epidural placed. She is now completely dilated. Baby is occiput posterior. She is on 4 milliunits of Pitocin, sharmila regularly. She is aware of contractions, but is still reason ably comfortable. We will begin pushing and see if she can bring the baby into an occiput anterior p osition if possible. Otherwise, seems to be doing quite well. JEANNETTE/CARSON Voice ID: [id number] Report ID: [id number]
[2020-04-22] MEDS ORDERED: OXYTOCIN/LR 20 UNIT/1,000 ML BAG IV SCH (04:00)
[2020-04-22] MEDS ORDERED: IBUPROFEN 600 MG TAB ONE (04:03)
--- NOTE | 2020-04-22 05:16 | OP ---
Surgeon: Diego Elizondo MD This is a 25-year-old 2, para 0, at 39 weeks, followed antepartum without complications. Rh positive, immune to rubella. Negative beta strep screen. For labor induction. Cytotec thoroughly d iscussed in the office and prior to insertion. 150 mcg Cytotec inserted. The patient was 1.5 cm, 50 % effaced, vertex, -1 station, went to a very active labor thereafter, experienced spontaneous ruptur e of membranes, started on light Pitocin augmentation, had Stadol IV 1 mg, Phenergan 25 mg IM. At ab out 5 cm, requested epidural anesthesia. Second stage of about 35 to 45 minutes. Spontaneous vagina l delivery of an estimated 7-pound male infant, Apgars 9 and 9. Small midline second-degree lacerati on repaired with 2-0 chromic. Schultze delivery of the placenta, which was inspected and noted to be intact and normal. 300 cc or less blood loss. The patient tolerated all procedures well. Final Diagnoses: Term intrauterine . Cytotec for labor induction. Vaginal delivery. Epid ural anesthesia. NBC/MODL Voice ID: [id number] Report ID: [id number]
--- NOTE | 2020-04-22 08:31 | PN ---
Gary Mata is . Vitals are normal. Blood pressure is back down to normal. Pulse is ba ck down to normal. Lochia is normal. The patient is sleeping this morning. I will not wake her at this point, but will go over full dismissal instructions tomorrow morning. Rh positive, immune to Ru sophia. I think the patient has had her Tdap shot during the , if not though will offer agai n before she goes home. JEANNETTE/CARSON Voice ID: [id number] Report ID: [id number]
[2020-04-22] MEDS: Oxycodone HCl/Acetaminophen 1 TAB TAB PO PRN ×2 (08:43→21:07)
[2020-04-22] MEDS: IBUPROFEN 600 MG TAB PO PRN (14:25)
[2020-04-22] MEDS ORDERED: Tdap (Diph,Pertuss(Acell),Tet Vac) 0.5 ML SYR IMVAC ONE (14:54)
[2020-04-23] MEDS: IBUPROFEN 600 MG TAB PO PRN (01:32)
[2020-04-23 09:08] VITALS: BP 123/67; TEMP 99.3
--- NOTE | 2020-04-23 10:14 | DS ---
Date of Discharge: 04/23/2020 Hospital Course: Gary Mata is a 25-year-old 2, para 0, 39 weeks gestation at time of del adonis. Had Cytotec inserted the night before 1/2 of a 100 mcg tablet, therefore 50 mcg. She went to a very active labor thereafter. Had light Pitocin augmentation. Stadol 1 mg IV and Phenergan 25 mg IM, followed by epidural anesthesia second stage of about 45 minutes. Spontaneous vaginal delivery of a 7 pounds 1-ounce male , Apgars 9 and 9. Epidural anesthesia. Local infiltration for supp lementation of analgesia for repair of second-degree small laceration with 2-0 chromic. Chad larson. The placenta was inspected, noted to be intact and normal. 300 mL or less blood loss. Rh po sitive, immune to Rubella. Negative beta strep screen. COVID status negative. ; afebrile , ambulating and voiding. No post epidural problems. She has had Tdap immunization. She request tr amadol on dismissal, but we will switch over to Motrin within the next day or 2. She knows everythin g goes through the breast milk. Full talk given. Final Diagnoses: Intrauterine gestation 39 weeks at time of delivery. Cytotec for labor induction. Epidural anesthesia. Tdap administered. COVID negative. Beta streptococcus negative. NBC/MODL Voice ID: [id number] Report ID: [id number]
[2020-04-27 06:04] LABS: HBsAG Nonreactive (Nonreactive)
== END 2020-04-23 08:00 | disposition home or self-care (01) | DRG 807 ==
LOC: 2ND-WC 15:39
PROVIDERS: ADMIT Specialist; ATTEND Specialist
PROC: 10E0XZZ Delivery of Products of Conception, External Approach (ICD-10-PCS; principal; 2020-04-22)
PROC: 0KQM0ZZ Repair Perineum Muscle, Open Approach (ICD-10-PCS; 2020-04-22)
PROC: 3E0P7VZ Introduction of Hormone into Female Reproductive, Via Natural or Artificial Opening (ICD-10-PCS; 2020-04-22)
PROC: 3E033VJ Introduction of Other Hormone into Peripheral Vein, Percutaneous Approach (ICD-10-PCS; 2020-04-22)
DX: O70.1 Second degree perineal laceration during delivery (principal); Z37.0 Single live birth; Z3A.39 39 weeks gestation of pregnancy; Z20.828 Contact with and (suspected) exposure to other viral communicable diseases; Z01.812 Encounter for preprocedural laboratory examination
CPT/HCPCS: 36415; 85025; 86592; 86901; 87340; 90471; 90715; J0595; J2210; J2550; J2590; J3010; J7120

== ENCOUNTER 2022-10-22 13:26 | Emergency (ER) | payer BC, OTHER ==
--- OUTSIDE RECORDS SUMMARY | 2022-10-22 13:33 | XMS REPORT | Continuity of Care Document ---
:1995 Author Organization [facility] t Address [address] [place] [address] [place] [id number] Care Team Providers Name Role Phone PCP, PATIENT DOES NOT HAVE A Primary Care Physician Unavaila STEPHANIE Banuelos Attending Clinician Unavailable STEPHANIE MIKE Attending Clinician Unavailable UNKNOWN, ATTENDING Attending Clinician Unavailable Alvin Hoskins Attending Clinician Payers Payer Name Policy Type Policy Number Effective Date Expiration Date S [facility] - [id number] 2022 00:00:00 OUT OF STATE Problems Condition Condition Condition Status Onset Resolution Last Treating Co mments Source Name Details Category Date Date Treatment Clinician Date BROKEN BROKEN Diagnosis Active 2015-082016-06-17 Me moria ANKLE//FAL ANKLE//FAL 0- 21:59:00 l L L Active 00:00: [place] 06/17/2016 00 [facility] History of Past Illness Condition Condition Condition Status Onset Resolution Last Treating Co mments Source Name Details Category Date Date Treatment Clinician Date Discharge Problem 2015-082016-06-20 2016-06-20 Memoria Diagnosis: Discharge 0 04:52:41 04:52:41 l Ankle Diagnosis: 05:00: Rip schultz sprain Ankle 00 sprain 06/17/2016 06/20/2016 [facility] Allergies, Adverse Reactions, Alerts Allergy Allergy Status Severity Reaction(s) Onset Inactive Treating Comm ents Source Name Type Date Date Clinician NO KNOWN Drug Active [facility] Medications Ordered Filled Start Stop Current Ordering [...] 3 day, # 10 tab, 0 Refill(s) Ibuprofen 2015-08 No Notes: Memori a 0-29 (Same as: l 01:29: Motrin) Arun 00 Famotidine 2015-08 No Notes: Memor ia 20 MG Oral 0-29 (Same as: l Tablet 01:29: Pepcid) [place] [Pepcid] 00 Robaxin 2015-08 No Notes: Memoria 0-29 (Same l 01:29: as:Robaxin Arun 00 ) Vital Signs Vital Name Observation Time Observation Value Comments Source Weight 2016-06-17 23:24:00 [facility] BMI Calculated 2016-06-17 [facility]:24[facility] Height 2016-06-17 23:24:00 162.56 cm [facility] Respitory Rate 2016-06-17 23:24:[facility] [place] Heart Rate 2016-06-17 23:24:00 [facility] Temperature Oral (F) 2016-06-17 23:24:00 98.2 F [facility] Systolic (mm Hg) 2016-06-17 23:24:00 August jenifer [place] Diastolic (mm Hg) 2016-06-17 23:24:00 Mem orial Arun Procedures This patient has no known procedures. Encounters Start End Encounter Admission Attending Care Care Encounter Source Date/Time Date/Time Type Type Clinicians Facility Department ID 2022-10-21 2022-10-21 Outpatient R STEPHANIE MIKE [facility] B [id number] [facility] 14:30:00 14:30:00 STEPHANIE MIKE [facility] 2022-02-162022-02-16 Outpatient R STEPHANIE MIKE [facility] B [id number] [facility] 10:00:00 10:00:00 STEPHANIE MIKE [id number] [facility] 2019-12-14 2019-12-14 Outpatient R UNKNOWN, [facility] [id number] [facility] 12:00:00 12:00:00 ATTENDING [facility] 2016-06-17 2016-06-18 Emergency [facility] [id number] Memoria 23:14:00 02:13:00 zara Dias 00 l [facility] 2016-06-17 2016-06-17 Outpatient Gato, [place] [id number] 18:14:00 21:13:00 Alvin Pete Results This patient has no known results.
[2022-10-22] MEDS ORDERED: NA CHLORIDE 0.9% 2,000 ML ONE (13:53)
[2022-10-22 14:05] LABS: Absolute Lymphocytes (CBC) 0.6 K/uL (0.7-4.9); Hematocrit 40.8 % (36.0-45.0); Lymphocytes % 11.2 % (15.3-44.8); MCV 86.6 fL (80-100); MPV 8.5 fL (7.6-11.3); RBC Red Blood Cell Count 4.72 M/uL (3.86-4.86)
--- NOTE | 2022-10-22 14:30 | RAD REPORT ---
EXAM DESCRIPTION: US - OB Limited - 10/22/2022 2:16 pm CLINICAL HISTORY: ABD CRAMPING, COMPARISON: OB Complete dated 02/17/2020 TECHNIQUE: Sonographic grayscale and color flow images of a first-trimester , performed thr ough a transabdominal approach. FINDINGS: A single live intrauterine is identified. Braymer-rump length measures 3.5 millimeters, corresponding to gestational age of 6 weeks, 1 days. heart rate: 117 beats per minute. Normal yolk sac is visualized. Left ovary is unremarkable. Right ovary was not visualized due to over shadowing bowel No free fluid. IMPRESSION: 1. Single live intrauterine . 2. Calculated gestational age: 6 weeks, 1 days. Estimated due date by ultrasound: 06/16/2023.
[2022-10-22 14:44] LABS: Potassium 3.4 mmol/L (3.5-5.1)
[2022-10-22 15:05] LABS: Urine Blood 2+ (Negative); Urine Glucose Negative (Negative); Urine Protein 1+ (Negative); Urine Specific Gravity >=1.030 (1.005-1.030); Urine pH 5.5 (5.0-7.0)
--- NOTE | 2022-10-22 15:33 | ER ---
Nurse's Notes [facility] [place] Name: Gary Mata Age: 27 yrs Sex: Female : 1995 Arrival Date: 10/22/2022 Time: 13:27 Bed 11 Private MD: Diagnosis: Less than 8 weeks gestation of ;Dehydration Presentation: 10/22 13:34 Chief complaint: Patient states: N/V/D that began at 0100 yesterday morning. Pt reports ss she is approximately 7 weeks and began spotting today. Coronavirus screen: Client denies travel out of the [place] in the last 14 days. Ebola Screen: Patient denies exposure to infectious person. Patient denies travel to an Ebola-affected area in the 21 days before illness onset. Initial Sepsis Screen: Does the patient meet any 2 criteria? No. Patient's initial sepsis screen is negative. Does the patient have a suspected source of infection? No. Patient's initial sepsis screen is negative. Risk Assessment: Do you want to hurt yourself or someone else? Patient reports no desire to harm self or others. Onset of symptoms was October 21, 2022. 13:34 Method Of Arrival: Ambulatory ss 13:34 Acuity: CARLOS 3 ss [employer] B[employer] TANK: 13:44 3, Full Term 1, 1, LMP 08/29/2022, Verified, EDC 06/05/2023, snw Gestational age from LMP: 7 weeks 5 days 14:02 LMP 08/27/2022 mb9 Historical: - Allergies: 13:37 No Known Allergies; ss - Home Meds: 13:37 levothyroxine oral [Active]; ss - PMHx: 13:37 Hypothyroidism; ss - PSHx: 13:37 None; ss - Immunization history:: Client reports receiving the 2nd dose of the Covid vaccine. - Social history:: Smoking status: Patient denies any tobacco usage or history of. Screenin:59 [facility] ED Fall Risk Assessment (Adult) History of falling in the last 3 months, mb9 including since admission No falls in past 3 months (0 pts) Confusion or Disorientation No (0 pts) Intoxicated or Sedated No (0 pts) Impaired Gait No (0 pts) Mobility Assist Device Used No (0 pt) Altered Elimination No (0 pt) Score/Fall Risk Level 0 - 2 = Low Risk Oriented to surroundings, Maintained a safe environment, Educated pt \T\ family on fall prevention, incl call for assistance when getting out of bed. Abuse screen: Denies threats or abuse. Nutritional screening: No deficits noted. Tuberculosis screening: No symptoms or risk factors identified. Assessment: 14:00 Reassessment: ultrasound at bedside. mb9 14:00 General: Appears ill, Behavior is calm, cooperative, appropriate for age. Pain: Denies mb9 pain. Neuro: Schultz Agitation-Sedation Scale (RASS): 0 - Alert and Calm Level of Consciousness is awake, alert, obeys commands, Oriented to person, place, time, situation, Appropriate for age. Cardiovascular: Heart tones S1 S2 present Patient's skin is warm and dry. Respiratory: Airway is patent Respiratory effort is even, unlabored, Respiratory pattern is regular, symmetrical, Breath sounds are clear bilaterally. GI: Abdomen is flat, non-distended, Bowel sounds present X 4 quads. Abd is soft and non tender X 4 quads. Reports diarrhea, intolerance of fluids, intolerance of food, nausea, vomiting. : Reports vaginal bleeding that is bright red, spotty, since this morning. Derm: Skin is pink, warm \T\ dry. Musculoskeletal: Range of motion: intact in all extremities. 16:47 Reassessment: No changes from previously documented assessment. Patient and/or family mb9 updated on plan of care and expected duration. Pain level reassessed. Patient is alert, oriented x 3, equal unlabored respirations, skin warm/dry/pink. Patient states feeling better. Patient states symptoms have improved. Vital Signs: 13:44 Pulse 72; Resp 16; Temp 98.6(O); Pulse Ox 100% on R/A; Weight 104.33 kg; Height 5 ft. 4 ss in. (162.56 cm); Pain 0/10; 15:49 BP 122 / 84; Pulse 74; Resp 16; Pulse Ox 100% on R/A; Pain 0/10; mb9 16:46 BP 118 / 78; Pulse 70; Resp 18; Pulse Ox 100% ; mb9 13:44 Body Mass Index 39.48 (104.33 kg, 162.56 cm) ss ED Course: 13:27 Patient arrived in ED. am2 13:31 Sandra Mesa FNP-C is PHCP. snw 13:31 Adrien Leon MD is Attending Physician. snw 13:35 Stacey Rodriguez, RN is Primary Nurse. mb9 13:36 Triage completed. ss 13:37 Arm band placed on right wrist. ss 13:50 Inserted saline lock: 20 gauge in right antecubital area, using aseptic technique. mb9 Blood collected. 13:58 Abo/rh Typing Sent. mb9 13:58 Basic Metabolic Panel Sent. mb9 13:58 CBC with Diff Sent. mb9 13:58 Quantitative Hcg Sent. mb9 14:00 Placed in gown. Bed in low position. Call light in reach. Side rails up X 1. Client mb9 placed on continuous cardiac and pulse oximetry monitoring. NIBP monitoring applied. Door closed. Noise minimized. Warm blanket given. 15:49 No provider procedures requiring assistance completed. mb9 16:47 IV discontinued, intact, bleeding controlled, No redness/swelling at site. Pressure mb9 dressing applied. Administered Medications: 13:58 Drug: NS 0.9% 1000 ml Route: IV; Rate: 125 ml/hr; Site: right antecubital; mb9 13:58 Drug: NS 0.9% 1000 ml Route: IV; Rate: 1 bolus; Site: right antecubital; mb9 14:49 Follow up: Response: No adverse reaction; IV Status: Completed infusion mb9 15:04 Follow up: Response: No adverse reaction; IV Status: Completed infusion mb9 Medication: 14:00 VIS not applicable for this client. mb9 Outcome: 15:32 Discharge ordered by . snw 16:47 Discharged to home ambulatory. mb9 16:47 Condition: stable 16:47 Discharge instructions given to patient, Instructed on discharge instructions, follow up and referral plans. Demonstrated understanding of instructions, follow-up care, medications, Prescriptions given X 1. 16:48 Patient left the ED. mb9 Signatures: Sandra Mesa FNP-C SPOON MAKER-Lindsay Salinas, KYLE RN Mouna Watts Mary Beth, RN RN mb9
--- NOTE | 2022-10-22 15:33 | EDPHYS ---
Physician Documentation [facility] [place] Name: Gary Mata Age: 27 yrs Sex: Female : 1995 Arrival Date: 10/22/2022 Time: 13:27 Bed 11 Private MD: ED Physician Adrien Leon HPI: 10/22 13:47 This 27 yrs old Female presents to ER via Ambulatory with complaints of Vaginal snw Bleeding, + Preg <12wks, Nausea/Vomiting/Diarrhea. 13:47 The patient presents with vaginal bleeding that is spotting. Onset: The snw symptoms/episode began/occurred acutely. Associated signs and symptoms: Pertinent positives: pt thinks she has food poisoning, family with N/V/D as well. Severity of symptoms: At their worst the symptoms were moderate. The patient has experienced a previous episode. The patient has not recently seen a physician. 13:48 pt with hx of successful with low dose progesterone therapy. Pt has a primary snw appt for this yest but it was cancelled 2 hours prior to the appt 2nd to insurance. [employer] DES[employer]ER: 13:44 3, Full Term 1, 1, LMP 08/29/2022, Verified, EDC 06/05/2023, snw Gestational age from LMP: 7 weeks 5 days 14:02 LMP 08/27/2022 mb9 Historical: - Allergies: 13:37 No Known Allergies; ss - Home Meds: 13:37 levothyroxine oral [Active]; ss - PMHx: 13:37 Hypothyroidism; ss - PSHx: 13:37 None; ss - Immunization history:: Client reports receiving the 2nd dose of the Covid vaccine. - Social history:: Smoking status: Patient denies any tobacco usage or history of. ROS: 13:46 Constitutional: Negative for fever, chills, and weight loss, Eyes: Negative for injury, snw pain, redness, and discharge, ENT: Negative for injury, pain, and discharge, Neck: Negative for injury, pain, and swelling, Cardiovascular: Negative for chest pain, palpitations, and edema, Respiratory: Negative for shortness of breath, cough, wheezing, and pleuritic chest pain, Back: Negative for injury and pain, : Negative for injury, bleeding, discharge, and swelling. 13:46 MS/Extremity: Negative for injury and deformity, Skin: Negative for injury, rash, and discoloration. 13:46 Abdomen/GI: Positive for nausea, vomiting, and diarrhea. 13:46 Neuro: Positive for near syncope. Exam: 13:43 Head/Face: Normocephalic, atraumatic. Eyes: Pupils equal round and reactive to light, snw extra-ocular motions intact. Lids and lashes normal. Conjunctiva and sclera are non-icteric and not injected. Cornea within normal limits. Periorbital areas with no swelling, redness, or edema. 13:43 Neck: Trachea midline, no thyromegaly or masses palpated, and no cervical lymphadenopathy. Supple, full range of motion without nuchal rigidity, or vertebral point tenderness. No Meningismus. Chest/axilla: Normal chest wall appearance and motion. Nontender with no deformity. No lesions are appreciated. 13:43 Respiratory: Lungs have equal breath sounds bilaterally, clear to auscultation and percussion. No rales, rhonchi or wheezes noted. No increased work of breathing, no retractions or nasal flaring. Abdomen/GI: Soft, non-tender, with normal bowel sounds. No distension or tympany. No guarding or rebound. No evidence of tenderness throughout. Back: No spinal tenderness. No costovertebral tenderness. Full range of motion. Skin: Warm, dry with normal turgor. Normal color with no rashes, no lesions, and no evidence of cellulitis. MS/ Extremity: Pulses equal, no cyanosis. Neurovascular intact. Full, normal range of motion. Neuro: Awake and alert, GCS 15, oriented to person, place, time, and situation. Cranial nerves II-XII grossly intact. Motor strength 5/5 in all extremities. Sensory grossly intact. Cerebellar exam normal. Normal gait. 13:43 Constitutional: The patient appears alert, awake, anxious, uncomfortable. 13:43 ENT: Mouth: Oral mucosa: dry, Voice: is normal. 13:43 Cardiovascular: Rate: tachycardic, Rhythm: regular. 13:43 Psych: Behavior/mood is anxious. Vital Signs: 13:44 Pulse 72; Resp 16; Temp 98.6(O); Pulse Ox 100% on R/A; Weight 104.33 kg; Height 5 ft. 4 ss in. (162.56 cm); Pain 0/10; 15:49 BP 122 / 84; Pulse 74; Resp 16; Pulse Ox 100% on R/A; Pain 0/10; mb9 16:46 BP 118 / 78; Pulse 70; Resp 18; Pulse Ox 100% ; mb9 13:44 Body Mass Index 39.48 (104.33 kg, 162.56 cm) ss MDM: 13:32 Patient medically screened. snw 15:32 Differential diagnosis: dysfunctional uterine bleeding, ectopic , nonspecific snw abdominal pain, gastroenteritis. 15:33 Data reviewed: vital signs, nurses notes, lab test result(s), radiologic studies, snw ultrasound. Counseling: I had a detailed discussion with the patient and/or guardian regarding: the historical points, exam findings, and any diagnostic results supporting the discharge/admit diagnosis, lab results, radiology results, the need for outpatient follow up, for definitive care, to return to the emergency department if symptoms worsen or persist or if there are any questions or concerns that arise at home. Special discussion: Based on the patient's Hx, exam, and Dx evaluation, there is no indication for emergent surgery or inpatient Tx. It is understood by the patient/guardian that if the Sx's persist or worsen they need to return immediately for re-evaluation. Based on the history and exam findings, there is no indication for further emergent testing or inpatient evaluation. I discussed with the patient/guardian the need to see the OB Gyne specialist for further evaluation of the symptoms. I discussed with the patient/guardian the need to see the primary care provider for further evaluation of the symptoms. 10/22 13:33 Order name: Abo/rh Typing [facility] 10/22 13:33 Order name: Basic Metabolic Panel [facility] 10/22 13:33 Order name: CBC with Diff [facility] 10/22 13:33 Order name: Quantitative Hcg [facility] 10/22 13:33 Order name: US Transvaginal Ob [facility] 10/22 13:33 Order name: IV Saline Lock; Complete Time: 13:58 [facility] 10/22 13:33 Order name: Labs collected and sent; Complete Time: 14:49 [facility] 10/22 13:33 Order name: NPO; Complete Time: 13:35 [facility] 10/22 13:33 Order name: Urine Dipstick-Ancillary (obtain specimen); Complete Time: 15:05 snw 10/22 14:06 Order name: CBC with Automated Diff; Complete Time: 14:07 EDMS 10/22 14:22 Order name: ABO/RH typing; Complete Time: 14:22 EDMS 10/22 14:30 Order name: US; Complete Time: 14:34 EDMS 10/22 14:45 Order name: Basic Metabolic Panel; Complete Time: 14:45 EDMS 10/22 14:45 Order name: HCG, Quantitative; Complete Time: 14:45 EDMS 10/22 15:05 Order name: Urine Dipstick-Ancillary; Complete Time: 15:05 EDMS 10/22 15:12 Order name: Misc. Order: 2nd liter of NS - increase rate to bolus; Complete Time: 15:17 snw Administered Medications: 13:58 Drug: NS 0.9% 1000 ml Route: IV; Rate: 125 ml/hr; Site: right antecubital; mb9 13:58 Drug: NS 0.9% 1000 ml Route: IV; Rate: 1 bolus; Site: right antecubital; mb9 14:49 Follow up: Response: No adverse reaction; IV Status: Completed infusion mb9 15:04 Follow up: Response: No adverse reaction; IV Status: Completed infusion mb9 Disposition Summary: 10/22/22 15:32 Discharge Ordered Location: Home snw Condition: Stable snw Diagnosis - Less than 8 weeks gestation of snw - Dehydration snw Followup: snw - With: Emergency Department - When: As needed - Reason: Worsening of condition Followup: snw - With: Private Physician - When: 2 - 3 days - Reason: Recheck today's complaints, Continuance of care, Re-evaluation by your physician Discharge Instructions: - Discharge Summary Sheet snw - Dehydration, Adult snw - Vaginal Bleeding During , First Trimester snw - Rehydration, Adult snw Forms: - Medication Reconciliation Form snw - Thank You Letter snw - Antibiotic Education snw - Prescription Opioid Use snw Prescriptions: - Prometrium 200 mg Oral capsule - take 2 capsule by ORAL route once daily for 28 days; 56 capsule; Refills: 0, snw Product Selection Permitted Signatures: Dispatcher [employer] EDCO Sandra Mesa FNP-Leticia AIR POLLUTION ANALYST-Estelaw Smirch, Lindsay, RN RN ss Breneman, Kristy, RN RN mb9
[2022-10-22 16:52] VITALS: TEMP 98.6; O2SAT 100
[2022-10-22 16:55] VITALS: BP 118/78
== END 2022-10-22 16:48 | disposition home or self-care (01) ==
LOC: ER 13:26
DX: O99.281 Endocrine, nutritional and metabolic diseases complicating pregnancy, first trimester (principal); E86.0 Dehydration; E03.9 Hypothyroidism, unspecified; Z3A.08 8 weeks gestation of pregnancy
CPT/HCPCS: 85025; 80048; 36415; 86900; 86901; 84702; 81003; 76815; 96360; 99284; J7030

== ENCOUNTER 2023-03-04 11:37 | Emergency (ER) | payer BC, OTHER ==
--- OUTSIDE RECORDS SUMMARY | 2023-03-04 11:49 | XMS REPORT | Continuity of Care Document ---
:1995 Author Organization [facility] t Address [address] [facility] [address] [place] [address] Care Team Providers Name Role Phone PCP, PATIENT DOES NOT HAVE A Primary Care Physician UnavailYARY Basurto Attending Clinician Unavailable Yary Oconnor MD Attending Clinician STEPHANIE MIKE Attending Clinician Unavailable STEPHANIE MIKE Attending Clinician Unavailable UNKNOWN, ATTENDING Attending Clinician Unavailable Alvin Hoskins Attending Clinician Payers Payer Name Policy Type Policy Number Effective Date Expiration Date S ouryudy BCBS PPO POS EPO [id number] 2022 00:00:00 CHOICE [place] - [id number] 2022 00:00:00 OUT OF STATE Problems Condition Condition Condition Status Onset Resolution Last Treating Co mments Source Name Details Category Date Date Treatment Clinician Date Raynaud's Raynaud's Disease Active [facility] phenomenon phenomenon 5-12 Deeap kes without without 00:00: Medical gangrene - gangrene - 00 Ce nter nipple nipple Hypothyroi Hypothyroi Disease Active [facility] d [facility] 4-12 [facility] , , 00:00: Me dical antepartum antepartum 00 Ce nter , second , second trimester trimester Obesity Obesity Disease Active [facility] affecting affecting 4-12 [facility] s 00:00: Medi lia in second in second 00 Cent er trimester trimester Nausea and Nausea and Disease Active [facility] vomiting vomiting 3-15 [facility] during during 00:00: Medical 00 Cent er History of History of Disease Active [facility] miscarriag miscarriag 3-13 Deepa kes e e 00:00: Medical Center BROKEN BROKEN Diagnosis Active 2015-082016-06-17 Me moria ANKLE//FAL ANKLE//FAL 0-28 21:59:00 l L L Active 00:00: Arun 06/17/2016 00 [facility] Thyroid Thyroid Disease Active [facility] disorder disorder [facility] History of Past Illness Condition Condition Condition Status Onset Resolution Last Treating Co mments Source Name Details Category Date Date Treatment Clinician Date Discharge Discharge Problem 2015-082016-06-20 2016-06-20 Memoria Diagnosis: Diagnosis: 0- 04:52:41 04:52:41 l Ankle Ankle 05:00: [place] sprain sprain 00 06/17/2016 06/20/2016 [facility] Allergies, Adverse Reactions, Alerts Allergy Allergy Status Severity Reaction(s) Onset Inactive Treating Comm ents Source Name Type Date Date Clinician NO KNOWN Drug Active [facility] ALLERGIE Class ity of [facility] NO KNOWN Allergy Active [facility] ALLERGIE [facility] Social History Social Habit Start Date Stop Date Quantity Comments Source ASSERTION 2022-09-[address] [facility] 00:[facility]00 [facility] History SDOH [facility] Alcohol Std Drinks Medica Center History SDOH [facility] Alcohol Binge Medical [address] Alcohol intake 2023-01-28 2023-01-[address] [facility] 00:00:00 00:00:00 non-drinker Medical Cente r (finding) Tobacco use and 2022-10-31 2022-10-31 Sm[address]eless [address] [facility] exposure 00:00:00 00:00:00 non-user Medical Center History SDOH 2022-10-31 2022-10-[address] [facility] Alcohol Frequency 00:00:00 00:00:00 Medical Center Sex Assigned At [address] Deepa kes 00:00:00 00:00:00 Medical Center Smoking Status Start Date Stop Date Source Never smoked tobacco [facility] Medications Ordered Filled Start Stop Current Ordering Indication Dosage Frequency Signature Comments Components Source Medication Medication Date Date Medication? Clinician (SIG) Name Name BABY Yes Take by [facility] ASPIRIN 7-10 mouth. [facility] ORAL 09:09: Medical 14 Center progesteron Yes 100mg QD Take [address] [facility] [facility] e 7-10 capsule [facility] (PROMETRIUM 09:09: (100 mg Med ical ) 100 MG 14 total) by Center capsule mouth daily. 2022- No 1{tbl} QD Take [address] [facility] vitamin 7-10 07-10 tablet by [facility] w/calcium-i 09:09: 00:00 mouth in M edical freeman-folate 06 :00 the Center ( morning. PLUS) 27 mg iron- 1 mg Tab ondansetron Yes One po [facility] (Zofran) 4 7-10 every 4-6 [facility] s MG tablet 00:00: hours prn Med ical 00 nausea/ Center vomiting. ondansetron 2022- No 4mg Take [address] (ZOFRAN) 4 4-12 04-12 tablet (4 Andrade es MG tablet 15:36: 00:00 mg total) Me dical 49 :00 by mouth 2 Center (two) times daily as needed for Nausea. levothyroxi 2023- No 137ug Take [address] ne 4-12 04-11 tablet [facility] (SYNTHROID, 00:00: 23:59 (137 mcg [facility] LEVOTHROID) 00 :00 total) by [address] [facility] 137 MCG mouth tablet Every morning on an empty stomach. ondansetron 2022- No One po [facility] (Zofran) 4 4-12 07-10 every 4-6 Andrade es MG tablet 00:00: 00:00 hours prn Me dical 00 :00 nausea/ Center vomiting. promethazin Yes High-risk 1/[address] e 3-13 , po every [facility] (PHENERGAN) 00:00: first 4-6 hours Medical 25 MG 00 trimester prn Center tablet nausea/ vomiting. Bonjesta 2022- No High-risk 1{tbl} Q.5D Take [address] 20-20 mg 3-13 -12 , tablet by Lujena TbID 00:00: 00:00 first mouth 2 Medical 00 :00 trimester (two) Center times daily One po qhs, then increase to bid after 3 day if no relief. levothyroxi 2022-0 2022- No High-risk 125ug QD Take [address] ne -06 24-12 , tablet [facility] (SYNTHROID, 00:00: 00:00 first (125 mcg Medical LEVOTHROID) 00 :00 trimester total) by Center 125 MCG mouth in tablet the morning. Methocarbam 2015-08 Yes 1,000 mg = Memoria ol 500 MG 0-29 2 tab, PO, l Oral Tablet 01:54: QID, X 3 He rmann [Robaxin] 00 day, # 24 tab, 0 Refill(s) Famotidine 2015-08 Yes 20 mg = 1 Me moria 20 MG Oral 0-29 tab, PO, l Tablet 01:54: BID, # 14 Rip n [Pepcid] 00 tab, 0 Refill(s) Methocarbam 2015-08 Yes 1,000 mg = Memoria ol 500 MG 0-29 2 tab, PO, l Oral Tablet 01:54: QID, X 3 He rmann [Robaxin] 00 day, # 24 tab, 0 Refill(s) Famotidine 2015-08 Yes 20 mg = 1 Me moria 20 MG Oral 0-29 tab, PO, l Tablet 01:54: BID, # 14 Rip n [Pepcid] 00 tab, 0 Refill(s) Methocarbam 2015-08 Yes 1,000 mg = Memoria ol 500 MG 0-29 2 tab, PO, l Oral Tablet 01:54: QID, X 3 He rmann [Robaxin] 00 day, # 24 tab, 0 Refill(s) Famotidine 2015-08 Yes 20 mg = 1 Me moria 20 MG Oral 0-29 tab, PO, l Tablet 01:54: BID, # 14 Rip n [Pepcid] 00 tab, 0 Refill(s) Methocarbam 2015-08 Yes 1,000 mg = Memoria ol 500 MG 0-29 2 tab, PO, l Oral Tablet 01:54: QID, X 3 He rmann [Robaxin] 00 day, # 24 tab, 0 Refill(s) Famotidine 2015-08 Yes 20 mg = 1 Me moria 20 MG Oral 0-29 tab, PO, l Tablet 01:54: BID, # 14 Rip n [Pepcid] 00 tab, 0 Refill(s) Methocarbam 2015-08 Yes 1,000 mg = Memoria ol 500 MG 0-29 2 tab, PO, l Oral Tablet 01:54: QID, X 3 He rmann [Robaxin] 00 day, # 24 tab, 0 Refill(s) Methocarbam 2015-08 Yes 1,000 mg = Memoria ol 500 MG 0-29 2 tab, PO, l Oral Tablet 01:54: QID, X 3 He rmann [Robaxin] 00 day, # 24 tab, 0 Refill(s) Famotidine 2015-08 Yes 20 mg = 1 Me moria 20 MG Oral 0-29 tab, PO, l Tablet 01:54: BID, # 14 Rip n [Pepcid] 00 tab, 0 Refill(s) Famotidine 2015-08 Yes 20 mg = 1 Me moria 20 MG Oral 0-29 tab, PO, l Tablet 01:54: BID, # 14 Rip n [Pepcid] 00 tab, 0 Refill(s) Methocarbam 2015-08 Yes 1,000 mg = Memoria [...] 3 day, # 10 tab, 0 Refill(s) ibuprofen 2015-08 Yes 800 mg, Memor ia 800 mg oral 0-29 PO, TID, l tablet 01:53: PRN Pain, Rip n 00 Take with food, X 3 day, # 10 tab, 0 Refill(s) ibuprofen 2015-08 Yes 800 mg, Memor ia 800 mg oral 0-29 PO, TID, l tablet 01:53: PRN Pain, Rip n 00 Take with food, X 3 day, # 10 tab, 0 Refill(s) ibuprofen 2015-08 Yes 800 mg, Memor ia 800 mg oral 0-29 PO, TID, l tablet 01:53: PRN Pain, Rip n 00 Take with food, X 3 day, # 10 tab, 0 Refill(s) ibuprofen 2015-08 Yes 800 mg, Memor ia 800 mg oral 0-29 PO, TID, l tablet 01:53: PRN Pain, Rip n 00 Take with food, X 3 day, # 10 tab, 0 Refill(s) ibuprofen 2015-08 Yes 800 mg, Memor ia 800 mg oral 0-29 PO, TID, l tablet 01:53: PRN Pain, Rip n 00 Take with food, X 3 day, # 10 tab, 0 Refill(s) ibuprofen 2015-08 Yes 800 mg, Memor ia 800 mg oral 0-29 PO, TID, l tablet 01:53: PRN Pain, Rip n 00 Take with food, X 3 day, # 10 tab, 0 Refill(s) Famotidine 2015-08 No Notes: Memor ia 20 MG Oral 0-29 (Same as: l Tablet 01:29: Pepcid) [place] [Pepcid] 00 Robaxin 2015-08 No Notes: Memoria 0-29 (Same l 01:29: as:Robaxin [place] ) Ibuprofen 2015-08 No Notes: Memori a 0-29 (Same as: l 01:29: Motrin) [place] Famotidine 2015-08 No Notes: Memor ia 20 MG Oral 0-29 (Same as: l Tablet 01:29: Pepcid) [place] [Pepcid] 00 Robaxin 2015-08 No Notes: Memoria 0-29 (Same l 01:29: as:Robaxin [place] 00 ) Ibuprofen 2015-08 No Notes: Memori a 0-29 (Same as: l 01:29: Motrin) Arun Famotidine 2015-08 No Notes: Memor ia 20 MG Oral 0-29 (Same as: l Tablet 01:29: Pepcid) [place] [Pepcid] 00 Robaxin 2015-08 No Notes: Memoria 0-29 (Same l 01:29: as:Robaxin Arun 00 ) Ibuprofen 2015-08 No Notes: Memori a 0-29 (Same as: l 01:29: Motrin) Arun 00 Famotidine 2015-08 No Notes: Memor ia 20 MG Oral 0-29 (Same as: l Tablet 01:29: Pepcid) [place]un [Pepcid] 00 Robaxin 2015-08 No Notes: Memoria 0-29 (Same l 01:29: as:Robaxin [place] 00 ) Ibuprofen 2015-08 No Notes: Memori a 0-29 (Same as: l 01:29: Motrin) Arun 00 Famotidine 2015-08 No Notes: Memor ia 20 MG Oral 0-29 (Same as: l Tablet 01:29: Pepcid) [place] [Pepcid] 00 Robaxin 2015-08 No Notes: Memoria 0-29 (Same l 01:29: as:Robaxin [place] ) Ibuprofen 2015-08 No Notes: Memori a 0-29 (Same as: l 01:29: Motrin) Arnu 00 Famotidine 2015-08 No Notes: Memor ia 20 MG Oral 0-29 (Same as: l Tablet 01:29: Pepcid) [place] [Pepcid] 00 Robaxin 2015-08 No Notes: Memoria 0-29 (Same l 01:29: as:Robaxin [place] 00 ) Ibuprofen 2015-08 No Notes: Memori a 0-29 (Same as: l 01:29: Motrin) [place] 00 Ibuprofen 2015-08 No Notes: Memori a 0-29 (Same as: l 01:29: Motrin) [place] 00 Famotidine 2015-08 No Notes: Memor ia 20 MG Oral 0-29 (Same as: l Tablet 01:29: Pepcid) Arun [Pepcid] 00 Robaxin 2015-08 No Notes: Memoria 0-29 (Same l 01:29: as:Robaxin Arun 00 ) Vital Signs Vital Name Observation Time Observation Value Comments Source Systolic blood 2023-02-27 09:10:00 98 mm[Hg] [facility] Diastolic blood 2023-02-27 09:10:00 66 mm[Hg] [facility] Heart rate 2023-02-27 09:10:00 88 /min [facility] Body temperature 2023-02-27 09:10:00 36.83 Emmanuelle [facility] Body weight 2023-02-27 09:10:00 97.07 kg [facility] BMI 2023-02-27 09:10:00 34.54 kg/m2 [facility] Body height 2022-10-31 08:09:00 167.6 cm [facility] Weight 2016-06-17 23:24:00 [facility] BMI Calculated 2016-06-17 23:24:[facility] [place] Height 2016-06-17 23:24:[address] [facility] Resp[facility] Rate 2016-06-17 23:24:[facility] Heart Rate 2016-06-17 23:24:00 [facility] Temperature Oral (F) 2016-06-17 23:24:00 98.2 F [facility] Arun Systolic (mm Hg) 2016-06-17 23:24:00 August ria [place] Diastolic (mm Hg) 2016-06-17 23:24:00 Mem orial [place] Procedures Procedure Date / Time Performed Performing Clinician Sourc e IP CONSULT TO 2023-02-03 00:00:00 Yary Oconnor [facility] POCT AMB URINE DIPSTICK 2023-01-23 15:24:00 Yary Oconnor [facility] COMPREHENSIVE METABOLIC 2023-01-23 14:49:00 Yary Oconnor [facility] CBC W/PLT COUNT & AUTO 2023-01-23 14:49:00 Yary Oconnor [facility] TSH 2023-01-23 14:49:00 Yary Oconnor [facility] T4, FREE 2023-01-23 14:49:00 Yary Oconnor [facility] PROGESTERONE 2023-01-23 14:49:00 Yary Oconnor [facility] POCT AMB URINE DIPSTICK 2022-12-30 10:48:00 Yary Oconnor [facility] CERVICAL CANCER B 2022-12-30 09:06:00 Yary Oconnor [facility] SCREENING ONLY- NO [facility] IGP, RFX APTIMA HPV ASCU 2022-12-30 09:06:00 Yary Oconnor [facility] PROGESTERONE 2022-12-30 08:49:00 Yary Oconnor [facility] TSH 2022-12-30 08:49:00 Yary Oconnor [facility] T4, FREE 2022-12-30 08:49:00 Yary Oconnor [facility] US OB LIMITED 1 + FETUSES 2022-11-30 16:25:00 Yary Oconnor [facility] POCT AMB URINE DIPSTICK 2022-11-30 15:15:00 Yary Oconnor [facility] APT-SANJIV, AMNIOTIC 2022-11-30 00:00:00 Provider, Historical [facility] OB TRANSVAGINAL 2022-11-14 14:26:00 Yary Oconnor [facility] PROGESTERONE 2022-11-03 10:25:00 Yary Oconnor [facility] URINE CULTURE, ROUTINE 2022-10-31 16:35:00 Yary Oconnor [facility] CHLAMYDIA/GC ANA, 2022-10-31 16:35:00 Yary Oconnor [facility] URINALYSIS, ROUTINE 2022-10-31 16:35:00 Yary Oconnor [facility] MICROSCOPIC EXAMINATION 2022-10-31 16:35:00 Yary Oconnor [facility] OB TRANSVAGINAL 2022-10-31 13:10:00 Yary Oconnor [facility] POCT , URINE 2022-10-31 09:28:00 Yary Oconnor [facility] HIV-1 ANTIGEN WITH 2022-10-31 09:16:00 Yary Oconnor [facility] HIV-1/2 ANTIBODY [facility] RPR (DX) W/REFL TITER AND 2022-10-31 09:16:00 Yary Oconnor [facility] CONFIRMATORY TESTING Medical [address] [facility] HEPATITIS C ANTIBODY 2022-10-31 09:16:00 Yary Oconnor [facility] CBC W/PLT COUNT & AUTO 2022-10-31 09:16:00 Yary Oconnor [facility] DIFFERENTIAL [facility] HEPATITIS B SURFACE 2022-10-31 09:16:00 Yary Oconnor [facility] ANTIGEN [facility] RUBELLA ANTIBODY, IGG 2022-10-31 09:16:00 Yary Oconnor [facility] ANTIBODY SCREEN ([facility] 2022-10-31 09:16:00 Yary Oconnor [facility] & [facility] ONLY) [facility] TSH 2022-10-31 09:16:00 Yary Oconnor [facility] T4, FREE 2022-10-31 09:16:00 Yary Oconnor [facility] ABORH, MANUAL 2022-10-31 09:16:00 Yary Oconnor [facility] Plan of Care Planned Activity Planned Date Details Comments Source Future Scheduled 2030-04-22 DTAP/TDAP/TD VACCINES [facility] 00:00:00 (2 - Td or Tdap) [facility] [address] [code = DTAP/TDAP/TD VACCINES (2 - Td or Tdap)] Future Scheduled 2024-01-[address] [facility] Test 00:00[facility]00 [facility] Screening (12+) [code = Tobacco Cessation Counseling and Screening (12+)] Future Scheduled 2023-04-[address] [facility] Test 00:00:00 (#1) [code = [facility] Influenza Vaccine (#1)] Future Scheduled [address] [facility] Test 00:00:00 malignant neoplasm of Medica l Center cervix (procedure) [code = 105990175] Future Scheduled 2014 Lipid panel [facility] Test 00:00:00 (procedure) [code = [facility] 77453077] Future Scheduled 1994 COVID-19 VACCINE (#1) [facility] Test 00:00:00 [code = COVID-[address] VACCINE (#1)] Encounters Start End Encounter Admission Attending Care Care Encounter Source Date/Time Date/Time Type Type Clinicians Facility Department ID 2023-05-01 2023-05-01 Outpatient HALEY OCONNOR [facility] [id number] 00:00:00 00:00:00 [facility] 2023-05-01 2023-05-01 Outpatient [facility] [id number] 00:00:00 00:00:00 [facility] 2023-04-17 2023-04-17 Outpatient HALEY OCONNOR [facility] [id number] 00:00:00 00:00:00 [facility] 2023-04-10 2023-04-10 Outpatient [facility]ALEY ANASTASIA [facility] [id number] 00:00:00 00:00:00 [facility] 2023-03-27 2023-03-27 Outpatient HALEY OCONNOR [facility] [id number] 00:00:00 00:00:00 [facility] 2023-02-27 2023-02-27 Routine Anastasia [facility] [id number] 09:00:00 09:35:06 [facility] 2023-02-27 2023-02-27 Outpatient HALEY OCONNOR [facility] [id number] 08:58:18 09:35:06 [facility] 2023-02-27 2023-02-27 Telephone Valerioart [facility] [id number] 00:00:00 00:00:00 [facility] 2023-02-03 2023-02-03 Orders Anastasia [facility] [id number] 00:00:00 00:00:[address] [facility] 2023-01-23 2023-01-23 Routine Anastasia, [facility] [id number] 14:15:00 14:42:02 [facility] 2023-01-23 2023-01-23 Outpatient EL ANASTASIA, [facility] [id number] 14:05:55 14:42:02 [facility] 2023-01-03 2023-01-03 Telephone Anastasia, [facility] [id number] 00:00:00 00:00:00 [facility] 2022-12-30 2022-12-30 Routine Anastasia, [facility] [id number] 08:15:00 08:47:16 [facility] 2022-12-30 2022-12-30 Outpatient EL ANASTASIA, [facility] [id number] 08:05:32 08:47:16 [facility] 2022-12-12 2022-12-12 Abstract Anastasia, [facility] [id number] 00:00:00 00:00:00 [facility] 2022-11-30 2022-11-30 Routine Anastasia, [facility] [id number] 15:00:00 15:36:32 [facility] 2022-11-30 2022-11-30 Outpatient EL ANASTASIA, [facility] [id number] 14:46:51 15:36:32 [facility] 2022-11-30 2022-11-30 Outpatient EL [facility] [id number] 14:47:07 15:36:20 [facility] 2022-11-30 2022-11-30 Telephone Valerioart [facility] [id number] 00:00:00 00:00:00 [facility] 2022-11-14 2022-11-14 Office Anastasia [facility] [id number] 08:45:00 09:08:[address] [facility] 2022-11-14 2022-11-14 Outpatient HALEY OCONNOR [facility] [id number] 08:40:51 09:08:48 [facility] 2022-11-10 2022-11-10 Telephone Anastasia [facility] [id number] 00:00:00 00:00:00 [facility] 2022-10-31 2022-10-31 Office Anastasia [facility] [id number] 08:00:00 09:10:[address] [facility] 2022-10-31 2022-10-31 Outpatient HALEY OCONNOR [facility] [id number] 07:51:51 09:10:46 [facility] 2022-10-31 2022-10-31 Outpatient [facility] [id number] 07:52:13 09:10:31 [facility] 2022-10-31 2022-10-31 Telephone Anastasia [facility] [id number] 00:00:00 00:00:00 [facility] 2022-10-21 2022-10-21 Outpatient R STEPHANIE MIKE [facility] B [id number] [facility] 14:30:00 14:30:00 STEPHANIE MIKE [facility] 2022-02-16 2022-02-16 Outpatient R STEPHANIE MIKE [facility] B [id number] [facility] 10:00:00 10:00:00 STEPHANIE MIKE [id number] [facility] 2019-12-14 2019-12-14 Outpatient R RUSS [facility] [id number] Univers 12:00:00 12:00:00 ATTENDING [facility] 2016-06-17 2016-06-18 Emergency [facility] [id number] Memoria 23:14:00 02:13:[address] 2016-06-17 2016-06-18 Emergency [facility] [id number] Memoria 23:14:00 02:13:[address] 2016-06-17 2016-06-17 Outpatient KYREE Hoskins 9 [id number] 18:14:00 21:13:00 Alvin Juan R Results Test Description Test Time Test Comments Results Result Comments Source CBC W/ PLT COUNT AUTO DIFFERENTIAL 2023-01-24 04:07:00 Test Item Value Reference Range Interpretation Comme nts WBC (test code = 1165908) 9.6 See_Comment [ Automated message] The system which ge nerated this result tra nsmitted reference range : 3.4 - 10.8 x10E3/uL. The reference range was not used to interpr et this result as scott l/abnormal. RBC (test code = 789-8) 3.85 See_Comment [Au tomated message] The system which ge nerated this result tra nsmitted reference range : 3.77 - 5.28 x10E6/uL. The reference range was not used to interpr et this result as scott l/abnormal. Hemoglobin (test code = 11.7 g/dL 11.1-15.9 ) Hematocrit (test code = 35.3 % 34.0-46.6 ) MCV (test code = ) 92 fL 79-97 MCH (test code = ) 30.4 pg 26.6-33.0 MCHC (test code = 33.1 g/dL 31.5-35.7 ) RDW (test code = 6028044) 12.9 % 11.7-15.4 Platelets (test code = 210 See_Comment [Aut omated message] The ) system which ge nerated this result tra nsmitted reference range : 150 - 450 x10E3/uL. The r eference range was not u sed to interpret this result as normal/abnormal . % Neutros (test code = 74 % Not Estab. ) % Lymphs (test code = 17 % Not Estab. ) % Monos (test code = 7 % Not Estab. ) % Eos (test code = 1 % Not Estab. ) % Baso (test code = 0 % Not Estab. ) # Neutros (test code = 7.1 See_Comment H [Aut omated message] The ) system which ge nerated this result tra nsmitted reference range : 1.4 - 7.0 x10E3/uL. The r eference range was not u sed to interpret this result as normal/abnormal . # Lymphs (test code = 1.7 See_Comment [Auto mated message] The ) system which ge nerated this result tra nsmitted reference range : 0.7 - 3.1 x10E3/uL. The r eference range was not u sed to interpret this result as normal/abnormal . # Monos (test code = 0.6 See_Comment [Autom ated message] The ) system which ge nerated this result tra nsmitted reference range : 0.1 - 0.9 x10E3/uL. The r eference range was not u sed to interpret this result as normal/abnormal . # Eos (test code = 0.1 See_Comment [Automat ed message] The ) system which ge nerated this result tra nsmitted reference range : 0.0 - 0.4 x10E3/uL. The r eference range was not u sed to interpret this result as normal/abnormal . Baso (Absolute) (test 0.0 See_Comment [Auto mated message] The code = ) system which generated this result tra nsmitted reference range : 0.0 - 0.2 x10E3/uL. The r eference range was not u sed to interpret this result as normal/abnormal . % Immature Grans (test 1 % Not Estab. code = ) # Immature Grans (test 0.1 See_Comment [Aut omated message] The code = ) system which generated this result tra nsmitted reference range : 0.0 - 0.1 x10E3/uL. The r eference range was not u sed to interpret this result as normal/abnormal . RISHI (test code = RISHI) Performed at: [facility] [id number] Director: Gerardo Nichols MD, Phone: [phone] Lab Interpretation (test Abnormal code = 01892-8) [id number] 04:07:00 Test Item Value Reference Range Interpretation Comments Progesterone (test 34.9 ng/mL Follicul ar phase code = 2839-9) 0.1 - 0.9 Lut eal phase 1.8 - 23. 9 Ovulation phase 0.1 - 12.0 First trimester 11.0 - 44.3 Second trimester 25.4 - 83.3 Third trim federico 58.7 - 214.0 Postmenopausal 0.0 - 0.1 RISHI (test code = Performed at: 01 RISHI) - [facility] [id number] [place] [address] [id number] Director: Gerardo Nichols MD, Phone: [phone] [facility] [id number] 04:07:00 Test Item Value Reference Range Interpretation Comments Glucose, Serum (test 78 mg/dL 70-99 code = 20101221) BUN (test code = 8 mg/dL 6-20 20101222) Creatinine, Serum 0.52 mg/dL 0.57-1.00 L (test code = 3929354) EGFR (test code = 130 mL/min/1.73 >=59 [id number]) BUN/Creatinine Ratio 15 9-23 (test code = 8181132) Sodium, Serum (test 137 mmol/L 134-144 code = 0291551) Potassium, Serum 3.7 mmol/L 3.5-5.2 (test code = 6943949) Chloride, Serum (test 103 mmol/L 96-106 code = 0670173) Carbon Dioxide, Total 22 mmol/L 20-29 (test code = 4673543) Calcium, Serum (test 8.9 mg/dL 8.7-10.2 code = 7103854) Protein, Total, Serum 5.8 g/dL 6.0-8.5 L (test code = 6788723) Albumin, Serum (test 3.4 g/dL 3.9-5.0 L code = 4411133) Globulin, Total (test 2.4 g/dL 1.5-4.5 code = 4878750) A/G Ratio (test code 1.4 1.2-2.2 = 9503280) Bilirubin, Total 0.4 mg/dL 0.0-1.2 (test code = 20101228) Alkaline Phosphatase, 55 See_Comment [Auto mated S (test code = message] The 6768-6) system which generated this result transmitted reference range : 44 - 121 IU/L. The reference range was not used to interpr et this result as normal/abnormal . AST (SGOT) (test code 11 See_Comment [Auto mated = 20110101) message] The system which generated this result transmitted reference range : 0 - 40 IU/L. Th e reference range was not used to interpret this result as normal/abnormal . ALT (SGPT) (test code 18 See_Comment [Auto mated = ) message] The system which generated this result transmitted reference range : 0 - 32 IU/L. Th e reference range was not used to interpret this result as normal/abnormal . RISHI (test code = RISHI) Performed at: [address] [place] [address] [id number] Director: Gerardo Nichols MD, Phone: [phone] Lab Interpretation Abnormal (test code = 28773-7) [facility] [id number] 04:07:00 Test Item Value Reference Range Interpretation Comments T4,Free(Direct) (test 1.14 ng/dL 0.82-1.77 code = 20120326) Thyroxine (T4) (test code 13.0 ug/dL 4.5-12.0 H = 20110102) RISHI (test code = RISHI) Performed at: [address] [place] [id number] Director: Gerardo Nichols MD, Phone: [phone] Lab Interpretation (test Abnormal code = 76769-1) [facility]SH[facility] 04:07:00 Test Item Value Reference Range Interpretation Comments TSH (test code 3.980 See_Comment [Automated m essage] = ) The system whic h generated this result transmit jane reference range : 0.450 - 4.50 uI U/mL. The reference r robert was not used to interpret this result as normal/abnormal . RISHI (test code Performed at: - = RISHI) [address] [id number] Director: Gerardo Nichols MD, Phone: [phone] [facility]PO[facility] OB Urine [id number] 15:24:00 Test Item Value Reference Range Interpretation Comments Color, UA (test code Yellow Light Yellow, = 9796-4) Yellow Clarity, UA (test Clear Clear code = 02704-3) Glucose Urine, POC Negative (test code = 05871-2) Bilirubin Urine, POC Negative Negative (test code = 5770-3) Ketones Urine, POC Negative (test code = 2514-8) Specific [place] 1.020 SG Ratio See_Comment [Automat ed Urine, POC (test code messag e] The = 5811-5) system which generated this result transmit jane reference range : 1.005 SG Ratio, 1.010 SG Ratio, 1.015 SG Ratio, 1.020 SG Ratio, 1.025 SG Ratio, 1.030 SG Ratio. The reference range was not u sed to interpret th is result as normal/abnormal . Blood Urine, POC Negative Negative (test code = 5794-3) pH, Urine (test code 7.0 pH units See_Comment [Autom ated = 5803-2) message] The system which generated this result transmit jane reference range : 5.0 pH units, 5 .5 pH units, 6.0 p H units, 6.5 pH units, 7.0 pH units, 7.5 pH units, 8.0 pH units. The reference range was not used to interpret this result as normal/abnormal . Protein Urine, POC Negative Negative (test code = 63505-4) Urobilinogen Urine, 1.0 pH units POC (test code = 6835713) Leukocyte Esterase Trace Negative A Urine, POC (test code = 4031667) Nitrite Urine, POC Negative Negative (test code = 4957059) Lab Interpretation Abnormal (test code = 92610-7) [facility]CERV[facility] CAN[facility] B SCREENING ONLY- NO [id number]'[id number] 20:08:00 Test Item Value Reference Range Interpretation Comments Age Gdln ACOG 21-29 Testing (test code = 8474462) RISHI (test code = Specimen Comment: RISHI) Source.............Vagina Specimen Comment: No. of containers..01 ThinPrep VialPerformed at: 01 - [facility]CoM[facility] CenterDrypckv8894 [place], [place] [id number] Director: Gerardo Nichols MD, Phone: [phone] [facility] HospitalIGP, rfx Aptima HPV [id number] 20:08:00 Test Item Value Reference Interpretation Comments Range DIAGNOSIS: Comment NEGATIVE FOR (test code = INTRAEPITHELIAL LESION ) OR MALIGNANCY. Specimen Comment Satisfactory fo r adequacy: (test evaluation. code = ) Performed by: Comment Tessa Leos, (test code = Cytotechnologis t ) (ASCP) . (test code = . 20111221) Note: (test Comment The Pap smear i s a code = ) screening te st designed to aid in the detection ofpremalignant and malignant condi tions of the uterine cervix. It is not adiag nostic procedure and s hould not be used as the sole means of detectingcervic al cancer. Both false-positive and false-negative reports do occur. Test Comment This liquid bas ed Methodology: ThinPrep(R) pap test (test code = was screened wi th ) theuse of an im age guided system. . (test code = Comment The HPV DNA r eflex ) criteria were n ot met with this speci men resulttherefore , no HPV testing was performed. RISHI (test code Specimen Comment: = RISHI) Source............. VaginaSpecimen Comment: No. of containers..01 ThinPrep VialPerformed at: - [facility] [id number] [place] [address] [id number] Director: Lilibeth Pride MD, Phone: [phone] at: - [facility] X[address]tr[address] [place], [place] [id number] Director: Gerardo Nichols MD, Phone: [phone] [facility] HospitalUltrasound OB limited 1 + [id number] 16:25:00 Biparietal DiameterAbdominal CircumferenceFemur LengthHead CircumferenceHC/ACEstimated WeightCHI St. Francis Medical CenterAPT-[place], [id number] 00:00:00 Test Item Value Reference Range Interpretation Comments APT Test (test code = low risk (male) 99243-4) [facility] HospitalTVP - OB transvaginal [id number] 14:26:00 Biparietal DiameterAbdominal CircumferenceFemoral DiameterHead CircumferenceHC/ACEstimated WeightLittle Company of [facility] HospitalURINALYSIS, [id number] 00:07:00 Test Item Value Reference Range Interpretation Comments Specific [place], UA 1.021 1.005-1.03 (test code = 2965-2) pH, UA (test code = 6.0 5.0-7.5 5803-2) Color, UA (test code Yellow Yellow = 9796-4) Appearance (test code Cloudy Clear A = 3703478) WBC Esterase (test 2+ Negative A code = 8460073) Protein, UA (test Negative Negative/T code = 48746-7) Glucose, Urine (test Negative Negative code = 19148-4) Ketones, UA (test 3+ Negative A code = 2514-8) Blood, UA (test code Negative Negative = 37409-8) Bilirubin, UA (test Negative Negative code = 5770-3) Urobilinogen,Semi-Qn 1.0 mg/dL 0.2-1.0 (test code = 3724352) Nitrite, UA (test Negative Negative code = 78730-6) Microscopic See below: Microscopic was Examination (test indicated and was code = 1741580) performed. RISHI (test code = RISIH) Performed at: - [facility] [id number] Director: Gerardo Nichols MD, Phone: [phone] Lab Interpretation Abnormal (test code = 73772-2) [facility] HospitalURINE CULTURE, [id number] 00:07:00 Test Item Value Reference Range Interpretation Comments Urine Culture, Final report Routine (test code = 7330521) Result 1 (test Comment Culture shows less code = 9973085) than 10,000 colony forming units o f bacteria permilliliter o f urine. This col marina count is not generally consideredto be clinically significant. RISHI (test code Performed at: 01 - = RISHI) [facility] [id number] Director: Gerardo Nichols MD, Phone: [phone] [facility] HospitalMICROSCOPIC [id number] 00:07:00 Test Item Value Reference Range Interpretation Comments WBC (test code = 6-10 See_Comment A [Automated 20110425) message] The system which generated this result transmitted reference range : 0 - 5 /hpf. The reference range was not used to interpret this result as normal/abnormal . RBC (test code = 3-10 See_Comment A [Automated 20110501) message] The system which generated this result transmitted reference range : 0 - 2 /hpf. The reference range was not used to interpret this result as normal/abnormal . Epithelial Cells (non 0-10 See_Comment [Auto mated renal) (test code = message] The 20110509) system which generated this result transmitted reference range : 0 - 10 /hpf. Th e reference range was not used to interpret this result as normal/abnormal . Casts (test code = None seen None seen /lpf 20110503) Bacteria (test code = Few None seen/ ) RISHI (test code = RISHI) Performed at: [facility] [id number] Director: Gerardo Nichols MD, Phone: [phone] Lab Interpretation Abnormal (test code = 01636-2) [facility] HospitalChlamydia/GC ANA, [id number] 00:07:00 Test Item Value Reference Range Interpretation Comments Chlamydia trachomatis, Negative Negative ANA (test code = 23892-3) Neisseria gonorrhoeae, Negative Negative ANA (test code = 49068-0) RISHI (test code = RISHI) Performed at: [facility] [id number] Director: David Goodwin MD, Phone: [phone] [facility] HospitalHepatitis B surface [id number] 14:11:00 Test Item Value Reference Range Interpretation Comments HBsAg Screen (test Negative Negative code = 5196-1) RISHI (test code = RISHI) Performed at: [facility] [id number] Director: Gerardo Nichols MD, Phone: [phone] [facility] HospitalRubella antibody, [id number] 14:11:00 Test Item Value Reference Range Interpretation Comments Rubella 1.71 See_Comment Non-immune <0. 90 Antibodies, IgG Equivocal 0. 90 - (test code = 0.99 Immune >0. 99 5334-8) [Automated mess age] The system [employer] generated this result transmit jane reference range : Immune >0. inde x. The reference r robert was not used to interpret this result as normal/abnormal . RISHI (test code = Performed at: ) [facility] [id number] Director: Gerardo Nichols MD, Phone: [phone] [facility] HospitalHepatitis C [id number] 14:11:00 Test Item Value Reference Range Interpretation Comments Hep C Virus Non Reactive Non Reacti HCV antibody al one does Ab (test not differentia te between code = previouslyresol richard 20120507) infection and a ctive infection. Equi vocal and ReactiveHCV ant ibody results should be followed up wit h an HCV RNA testto supp ort the diagnosis of ac tive HCV infection. RISHI (test Performed at: code = RISHI) - [facility] [id number] Director: Gerardo Nichols MD, Phone: [phone] [facility] HospitalHIV-1 Antigen with HIV-1/2 [id number] 14:11:00 Test Item Value Reference Range Interpretation Comments HIV Screen 4th Non Reactive Non Reacti HIV Generation wRfx NegativeHIV- 1/HIV- (test code = 2 antibodies an d ) HIV-1 p24 antig en were NOT detected.There is no laboratory evidence of HIV infection. RISHI (test code = Performed at: ) [facility] [address] [id number] Director: Gerardo Nichols MD, Phone: [phone] [facility] HospitalABORH, [id number] 14:11:00 Test Item Value Reference Range Interpretation Comments ABO Grouping O (test code = 20110228) Rh Factor (test Positive Please note: Prior code = 20110301) records for this patient's ABO / Rh type are notavailable fo r additional verification. RISHI (test code = Performed at: - RISHI) [facility] [id number] Director: Gerardo Nichols MD, Phone: [phone] [facility] HospitalRPR (DX) W/REFL TITER AND CONFIRMATORY TESTING 2022-11-01 14:11:00 Test Item Value Reference Range Interpretation Comments RPR (test code = Non Reactive Non Reacti 20110302) RISHI (test code = Performed at: RISHI) [facility] [address] [id number] Director: Gerardo Nichols MD, Phone: [phone] [facility] HospitalAntibody Screen ([facility] Only)2022-11-01 14:11:00 Test Item Value Reference Range Interpretation Comments Antibody Screen (test Negative Negative code = 9984621) RISHI (test code = RISHI) Performed at: - [facility] [address] [id number] Director: Gerardo Nichols MD, Phone: [phone] [facility] HospitalPOCT , [id number] 09:28:00 Test Item Value Reference Range Interpretation Comments Test Urine, POC (test code Positive = 1385289) Control line present?, POC (test Yes code = 4022945) Background clear?, POC (test code = Yes 2808758) UPT Cassette Lot #, POC (test code = 46998 9676928) UPT Cassette Expiration Date, POC 10/19/23 (test code = 7914669) [facility] Notes Date/Time Note Provider Source 2016-06-17 18:43:43-00:00 XR RIGHT ANKLE 3V [facility] HISTORY: Right ankle pain after a fall. COMPARISON: None. FINDINGS: AP, lateral and ob lique images of the right ankle demonstrate no acute bone or joint abnormality. IMPRESSION: No acute finding. DAY DEL RIO 2016-06-17 18:43:43-00:00 XR RIGHT ANKLE 3V [facility] HISTORY: Right ankle pain after a fall. COMPARISON: None. FINDINGS: AP, lateral and ob lique images of the right ankle demonstrate no acute bone or joint abnormality. IMPRESSION: No acute finding. LYNDSEY: QUANG
[2023-03-04] MEDS ORDERED: NA CHLORIDE 0.9% 2,000 ML ONE (12:19)
[2023-03-04] MEDS ORDERED: BISACODYL 10 MG RECTAL SUPP ONE (12:19)
[2023-03-04] MEDS ORDERED: LACTULOSE 20 GM/30 ML UCUP ONE ×2 (12:19→13:27)
[2023-03-04] MEDS ORDERED: ONDANSETRON 4 MG/2 ML VIAL ONE (12:19)
[2023-03-04 12:30] LABS: Potassium 3.2 mEq/L (3.5-5.1)
[2023-03-04 12:38] LABS: Hematocrit 36.9 % (36.0-45.0); Lymphocytes % 11.6 % (15.3-44.8); MCV 89.1 fL (80-100); RBC Red Blood Cell Count 4.14 M/uL (3.86-4.86)
--- NOTE | 2023-03-04 13:10 | RAD REPORT ---
EXAM DESCRIPTION: US - OB Limited - 03/04/2023 12:36 pm CLINICAL HISTORY: Abd cramping, ;Abd pain , pain COMPARISON: <Comparisons> FINDINGS: A limited examination was requested and submitted. A single cephalic presenting gestation is identified. Heart rate normal. Gestational age is approximately 25 weeks 1 day. Heart rate is normal 148 BPM. Amniotic fluid volume is within normal range. Cervix appears long and closed. Placenta posterior grade 1. No abruption or p revia findings.
[2023-03-04] MEDS ORDERED: NA CHLORIDE 0.9% 1,000 ML ONE (13:27)
[2023-03-04 13:34] LABS: Specific Gravity 1.027 (1.005-1.030)
[2023-03-04 13:35] LABS: Specific Gravity 1.027 (1.005-1.030); Urine Bacteria None Seen /HPF (<20); Urine Bilirubin 1+ (Negative); Urine Blood Negative (Negative); Urine Clarity Turbid (Clear); Urine Color Yellow (Yellow); Urine Glucose NEGATIVE (Negative); Urine Protein 1+ (Negative); Urine RBC <5 /HPF (None Seen); Urine Urobilinogen 2+ (Normal)
[2023-03-04] MEDS ORDERED: METOCLOPRAMIDE 10 MG/2mL INJ ONE (14:37)
--- NOTE | 2023-03-04 15:11 | ER ---
Nurse's Notes [facility] Name: Gary Mata Age: 27 yrs Sex: Female : 1995 Arrival Date: 03/04/2023 Time: 11:37 Bed 17 Private MD: Diagnosis: Constipation;25 weeks gestation of ;Abdominal pain, Generalized;Hypokalemia Presentation: 03/04 11:51 Chief complaint: Constipation and N/V x 1 week, reports 10 pound weight loss over the hb last 6 days. Pt is 25 weeks , , SHAHRZAD 06/16. Coronavirus screen: At this time, the client does not indicate any symptoms associated with coronavirus-19. Ebola Screen: No symptoms or risks identified at this time. Initial Sepsis Screen: Does the patient meet any 2 criteria? No. Patient's initial sepsis screen is negative. Does the patient have a suspected source of infection? No. Patient's initial sepsis screen is negative. Risk Assessment: Do you want to hurt yourself or someone else? Patient reports no desire to harm self or others. Onset of symptoms was February 25, 2023. 11:51 Method Of Arrival: Ambulatory hb 11:51 Acuity: CARLOS 3 hb [employer]IC: 13:46 Verified ap3 15:08 3, Full Term 1, Premature 0, 1, Living 1 fabi Historical: - Allergies: 11:54 No Known Allergies; hb - Home Meds: 11:54 levothyroxine 137 mcg oral tablet [Active]; aspirin 81 mg oral tablet,chewable daily hb [Active]; Zofran Oral [Active]; Promethazine Oral [Active]; Vitamin Oral [Active]; - PMHx: 11:54 Hypothyroidism; hb - PSHx: 11:54 None; hb - Immunization history:: Adult Immunizations up to date. - Social history:: Smoking status: Patient denies any tobacco usage or history of. Screenin:21 [facility] ED Fall Risk Assessment (Adult) History of falling in the last 3 months, ap3 including since admission No falls in past 3 months (0 pts). Abuse screen: Denies threats or abuse. Nutritional screening: No deficits noted. Tuberculosis screening: No symptoms or risk factors identified. Assessment: 12:21 General: Appears uncomfortable, Behavior is calm, cooperative. Pain: Complains of pain ap3 in abdomen. Neuro: Level of Consciousness is awake, alert, obeys commands, Oriented to person, place, time, situation. Cardiovascular: Patient's skin is warm and dry. Respiratory: Airway is patent Respiratory effort is even, unlabored, Respiratory pattern is regular, symmetrical. GI: Abdomen is patient is Reports constipation, nausea, vomiting. 15:01 Reassessment: patient reports successful bowel movement. ap3 15:02 Reassessment: Patient and/or family updated on plan of care and expected duration. Pain ap3 level reassessed. Patient is alert, oriented x 3, equal unlabored respirations, skin warm/dry/pink. 15:48 General: awaiting fluid completion prior to discharge. ap3 Vital Signs: 11:51 BP 118 / 78; Pulse 99; Resp 16; Temp 98.2(O); Pulse Ox 100% on R/A; Weight 92.53 kg; hb Height 5 ft. 6 in. ; Pain 4/10; 14:56 BP 119 / 85; Pulse 99; Resp 19; Pulse Ox 100% ; ap3 15:37 BP 118 / 74 Supine; Pulse 96; ap3 15:40 BP 107 / 85 Sitting; Pulse 97; ap3 15:44 BP 118 / 87 Standing; Pulse 100; ap3 11:51 Body Mass Index 32.93 (92.53 kg, 167.64 cm) hb 11:51 Pain Scale: Adult hb [place] Coma Score: 15:08 Eye Response: spontaneous(4). Motor Response: obeys commands(6). Verbal Response: fabi oriented(5). Total: 15. ED Course: 11:41 Patient arrived in ED. ts1 11:54 Ming Krishna MD is Attending Physician. fabi 11:54 Triage completed. hb 11:54 Arm band placed on. hb 11:58 Mouna Sapp, KYLE is Primary Nurse. ap3 12:07 Initial lab(s) drawn, by me, sent to lab. Inserted saline lock: 20 gauge in right ap3 antecubital area, using aseptic technique. Blood collected. 12:21 Patient has correct armband on for positive identification. Bed in low position. Call ap3 light in reach. Pulse ox on. NIBP on. Door closed. Noise minimized. Warm blanket given. 12:38 OB Limited In Process Unspecified. EDMS 13:46 Provided Education on: medication prior to administration. ap3 15:44 No provider procedures requiring assistance completed. ap3 16:59 IV discontinued, intact, bleeding controlled, No redness/swelling at site. Pressure ap3 dressing applied. Administered Medications: 12:20 Drug: NS 0.9% IV 1000 ml Route: IV; Rate: 1 bolus; Site: right antecubital; ap3 16:59 Follow up: IV Status: Completed infusion ap3 12:20 Drug: NS 0.9% IV 1000 ml Route: IV; Rate: 1 bolus; Site: right antecubital; ap3 16:59 Follow up: IV Status: Completed infusion ap3 12:20 Drug: Ondansetron IVP 4 mg Route: IVP; Site: right antecubital; ap3 15:04 Follow up: Response: No adverse reaction; Nausea unchanged ap3 12:20 Drug: Lactulose PO 30 grams Volume: 45 ml; Route: PO; ap3 15:04 Follow up: Response: No adverse reaction ap3 12:21 Drug: Dulcolax MT Suppository 10 mg Route: MT; ap3 15:04 Follow up: Response: No adverse reaction ap3 14:32 Drug: Lactulose PO 30 grams Volume: 45 ml; Route: PO; ap3 15:04 Follow up: Response: No adverse reaction ap3 14:32 Drug: metoCLOPramide IVP 10 mg Route: IVP; Site: right antecubital; ap3 15:05 Follow up: Response: No adverse reaction ap3 15:13 Drug: Potassium PO Effervescent Tablet 50 mEq Route: PO; ap3 15:37 Follow up: Response: No adverse reaction ap3 15:37 Not Given (Duplicate Order): NS 0.9% IV 1000 ml IV at 1 bolus Per protocol; 1000 mL ap3 bolus Medication: 12:22 VIS not applicable for this client. ap3 Outcome: 15:11 Discharge ordered by . fabi 16:59 Discharged to home ambulatory. ap3 16:59 Condition: good 16:59 Discharge instructions given to patient, Instructed on discharge instructions, follow up and referral plans. medication usage, Demonstrated understanding of instructions, follow-up care, medications, Prescriptions given X 4. 17:03 Patient left the ED. ap3 Signatures: Dispatcher [employer] Ming Johnson MD MD cha Baxter Amber, RN RN Mouna Sapp RN RN ap3 Keira Pedraza PAS PAS ts1 Corrections: (The following items were deleted from the chart) 12:41 11:51 Chief complaint: Constipation and N/V x 1 week, reports 10 pound weight loss over hb the last 6 days. Pt is 25 weeks , , SHAHRZAD 06/16. hb
--- NOTE | 2023-03-04 15:11 | EDPHYS ---
Physician Documentation [facility] [place] Name: Gary Mata Age: 27 yrs Sex: Female : 1995 Arrival Date: 03/04/2023 Time: 11:37 Bed 17 Private MD: ED Physician Ming Krishna HPI: 03/04 15:06 This 27 yrs old Female presents to ER via Ambulatory with complaints of fabi Nausea/Vomiting, Constipation, 25WKS . 15:06 The patient presents to the emergency department with nausea, vomiting, abdominal pain, fabi of the right upper quadrant, left upper quadrant, right lower quadrant and left lower quadrant. Onset: The symptoms/episode began/occurred 1 day(s) ago. Possible causes: , constipation. The symptoms are aggravated by nothing. The symptoms are alleviated by nothing. remaining still. Associated signs and symptoms: Pertinent positives: abdominal pain, constipation. Severity of symptoms: At their worst the symptoms were mild in the emergency department the symptoms are unchanged. The patient has experienced similar episodes in the past, several times. 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 - Social history:: Smoking status: Patient denies any tobacco usage or history of. ROS: 15:08 Constitutional: Negative for fever, chills, and weight loss, Eyes: Negative for injury, fabi pain, redness, and discharge, ENT: Negative for injury, pain, and discharge, Neck: Negative for injury, pain, and swelling, Cardiovascular: Negative for chest pain, palpitations, and edema, Respiratory: Negative for shortness of breath, cough, wheezing, and pleuritic chest pain, Back: Negative for injury and pain, : Negative for injury, bleeding, discharge, and swelling, MS/Extremity: Negative for injury and deformity, Skin: Negative for injury, rash, and discoloration, Neuro: Negative for headache, weakness, numbness, tingling, and seizure, Psych: Negative for depression, anxiety, suicide ideation, homicidal ideation, and hallucinations, Allergy/Immunology: Negative for hives, rash, and allergies, Endocrine: Negative for neck swelling, polydipsia, polyuria, polyphagia, and marked weight changes, Hematologic/Lymphatic: Negative for swollen nodes, abnormal bleeding, and unusual bruising. 15:08 Abdomen/GI: Positive for abdominal pain, constipation, of the right upper quadrant, left upper quadrant, right lower quadrant and left lower quadrant. Exam: 15:08 Constitutional: This is a well developed, well nourished patient who is awake, alert, fabi and in no acute distress. Head/Face: Normocephalic, atraumatic. Eyes: Pupils equal round and reactive to light, extra-ocular motions intact. Lids and lashes normal. Conjunctiva and sclera are non-icteric and not injected. Cornea within normal limits. Periorbital areas with no swelling, redness, or edema. ENT: Nares patent. No nasal discharge, no septal abnormalities noted. Tympanic membranes are normal and external auditory canals are clear. Oropharynx with no redness, swelling, or masses, exudates, or evidence of obstruction, uvula midline. Mucous membranes moist. Neck: Trachea midline, no thyromegaly or masses palpated, and no cervical lymphadenopathy. Supple, full range of motion without nuchal rigidity, or vertebral point tenderness. No Meningismus. Chest/axilla: Normal chest wall appearance and motion. Nontender with no deformity. No lesions are appreciated. Cardiovascular: Regular rate and rhythm with a normal S1 and S2. No gallops, murmurs, or rubs. Normal PMI, no JVD. No pulse deficits. Respiratory: Lungs have equal breath sounds bilaterally, clear to auscultation and percussion. No rales, rhonchi or wheezes noted. No increased work of breathing, no retractions or nasal flaring. Back: No spinal tenderness. No costovertebral tenderness. Full range of motion. Skin: Warm, dry with normal turgor. Normal color with no rashes, no lesions, and no evidence of cellulitis. MS/ Extremity: Pulses equal, no cyanosis. Neurovascular intact. Full, normal range of motion. Neuro: Awake and alert, GCS 15, oriented to person, place, time, and situation. Cranial nerves II-XII grossly intact. Motor strength 5/5 in all extremities. Sensory grossly intact. Cerebellar exam normal. Normal gait. Psych: Awake, alert, with orientation to person, place and time. Behavior, mood, and affect are within normal limits. 15:08 Abdomen/GI: Inspection: distension, that is mild, gravid appearance, is noted, Bowel sounds: normal, in all quadrants, active, all quadrants, Palpation: abdomen is soft and non-tender, soft, nontender, in all quadrants, Liver: no appreciated palpable abnormalities, Hernia: not appreciated. Vital Signs: 11:51 BP 118 / 78; Pulse 99; Resp 16; Temp 98.2(O); Pulse Ox 100% on R/A; Weight 92.53 kg; hb Height 5 ft. 6 in. ; Pain 4/10; 14:56 BP 119 / 85; Pulse 99; Resp 19; Pulse Ox 100% ; ap3 15:37 BP 118 / 74 Supine; Pulse 96; ap3 15:40 BP 107 / 85 Sitting; Pulse 97; ap3 15:44 BP 118 / 87 Standing; Pulse 100; ap3 11:51 Body Mass Index 32.93 (92.53 kg, 167.64 cm) hb 11:51 Pain Scale: Adult hb Gates Coma Score: 15:08 Eye Response: spontaneous(4). Motor Response: obeys commands(6). Verbal Response: fabi oriented(5). Total: 15. MDM: 11:54 Patient medically screened. [facility] 03/04 11:55 Order name: Abo/rh Typing; Complete Time: 14:00 [facility] 03/04 11:55 Order name: Basic Metabolic Panel; Complete Time: 13:11 [facility] 03/04 11:55 Order name: CBC with Diff; Complete Time: 13:11 [facility] 03/04 11:55 Order name: Test, Urine; Complete Time: 14:00 [facility] 03/04 11:55 Order name: Urinalysis w/ reflexes; Complete Time: 14:00 [facility] 03/04 11:55 Order name: US Pelvis Complete [facility] 03/04 11:59 Order name: OB Limited; Complete Time: 13:11 [facility] 03/04 11:55 Order name: IV Saline Lock; Complete Time: 12:07 [facility] 03/04 11:55 Order name: Labs collected and sent; Complete Time: 12:07 [facility] 03/04 11:55 Order name: NPO; Complete Time: 11:58 [facility] 03/04 13:12 Order name: Misc. Order: PO GATORADE; Complete Time: 13:18 [facility] 03/04 14:03 Order name: Orthostatics; Complete Time: 15:43 fabi Administered Medications: 12:20 Drug: NS 0.9% IV 1000 ml Route: IV; Rate: 1 bolus; Site: right antecubital; ap3 16:59 Follow up: IV Status: Completed infusion ap3 12:20 Drug: NS 0.9% IV 1000 ml Route: IV; Rate: 1 bolus; Site: right antecubital; ap3 16:59 Follow up: IV Status: Completed infusion ap3 12:20 Drug: Ondansetron IVP 4 mg Route: IVP; Site: right antecubital; ap3 15:04 Follow up: Response: No adverse reaction; Nausea unchanged ap3 12:20 Drug: Lactulose PO 30 grams Volume: 45 ml; Route: PO; ap3 15:04 Follow up: Response: No adverse reaction ap3 12:21 Drug: Dulcolax WA Suppository 10 mg Route: WA; ap3 15:04 Follow up: Response: No adverse reaction ap3 14:32 Drug: Lactulose PO 30 grams Volume: 45 ml; Route: PO; ap3 15:04 Follow up: Response: No adverse reaction ap3 14:32 Drug: metoCLOPramide IVP 10 mg Route: IVP; Site: right antecubital; ap3 15:05 Follow up: Response: No adverse reaction ap3 15:13 Drug: Potassium PO Effervescent Tablet 50 mEq Route: PO; ap3 15:37 Follow up: Response: No adverse reaction ap3 15:37 Not Given (Duplicate Order): NS 0.9% IV 1000 ml IV at 1 bolus Per protocol; 1000 mL ap3 bolus Disposition Summary: 03/04/23 15:11 Discharge Ordered Location: Home fabi Problem: new fabi Symptoms: have improved fabi Condition: Stable fabi Diagnosis - Constipation fabi - 25 weeks gestation of fabi - Abdominal pain, Generalized fabi - Hypokalemia fabi Followup: fabi - With: Private Physician - When: 2 - 3 days - Reason: Recheck today's complaints, Continuance of care, Re-evaluation by your physician Discharge Instructions: - Discharge Summary Sheet fabi - Abdominal Pain, Adult fabi - Potassium Content of Foods fabi - Care fabi - Third Trimester of fabi - Abdominal Pain, Adult, [id number] fabi - Third Trimester of , [id number] fabi - Hypokalemia [facility] Forms: - Work release form fabi - Medication Reconciliation Form [facility] - Thank You Letter fabi - Antibiotic Education fabi - Prescription Opioid Use fabi - Patient Portal Instructions [facility] Prescriptions: - Dulcolax (bisacodyl) 10 mg Rectal suppository - insert 1 suppository by RECTAL route every 12 hours; 14 suppository; Refills: [facility] 0, Product Selection Permitted - Potassium Chloride 20 meq Oral Packet - take 1 packet by ORAL route once daily 1 packet in 6 (six) ounces of water or fabi juice; Take after meal; 14 packet; Refills: 0, Product Selection Permitted - Lactulose 10 gram/15 mL Oral Solution - take 30 milliliters by ORAL route once daily; 300 milliliter; Refills: 0, fabi Product Selection Permitted - promethazine 6.25 mg/5 mL Oral Syrup - take 10 milliliters by ORAL route every 6 hours As needed; 160 milliliter; [facility] Refills: 0, Product Selection Permitted Signatures: Dispatcher [employer] Ming Johnson MD MD cha Baxter, Heather, RN RN Mouna Sapp RN RN ap3
[2023-03-04] MEDS ORDERED: POTASSIUM 25 MEQ EFFERV TAB ONE (15:18)
[2023-03-04 17:06] VITALS: TEMP 98.2; O2SAT 100
[2023-03-04 17:12] VITALS: BP 118/87
== END 2023-03-04 17:03 | disposition home or self-care (01) ==
LOC: ER 11:37
DX: O99.282 Endocrine, nutritional and metabolic diseases complicating pregnancy, second trimester (principal); E87.6 Hypokalemia; K59.00 Constipation, unspecified; E03.9 Hypothyroidism, unspecified; Z3A.25 25 weeks gestation of pregnancy
CPT/HCPCS: 96361; 85025; 81001; 80048; 36415; 86900; 81025; 86901; 76815; 96375; 96374; 99285; J2765; J2405; J7030 ×2

== ENCOUNTER 2023-06-06 23:55 | Emergency (ER) | payer BC, OTHER ==
--- OUTSIDE RECORDS SUMMARY | 2023-06-07 00:03 | XMS REPORT | Continuity of Care Document ---
:1995 Author Organization [facility] t Address [address] [facility] [address] [place] [address] Care Team Providers Name Role Phone PCP, PATIENT DOES NOT HAVE A Primary Care Physician Unavaila YARY Carter Attending Clinician Unavailable Yary Oconnor MD Attending Clinician Kulwinder Freeman MD Attending Clinician Kulwinder Sandhu CRNA Attending Clinician [phone] STEPHANIE MIKE Attending Clinician Unavailable STEPHANIE MIKE Attending Clinician Unavailable UNKNOWN, ATTENDING Attending Clinician Unavailable Alvin Hoskins Attending Clinician YARY OCONNOR Admitting Clinician Unavailable Payers Payer Name Policy Type Policy Number Effective Date Expiration Date S ouryudy BCBS PPO POS EPO [id number] 2022 00:00:00 CHOICE [place] - [id number] 2022 00:00:00 OUT OF STATE Problems Condition Condition Condition Status Onset Resolution Last Treating Co mments Source Name Details Category Date Date Treatment Clinician Date Normal Normal Disease Active 2022-[address] [facility]08 [facility] 00 Center Term Term Disease Active 2022-[address] [facility] 0-08 [facility] 00:[facility]: Medical 00 Center Irregular Irregular Disease Active 2022-[address] [facility] uterine uterine 0-07 [facility] contractio contractio 00:00: Me dical ns ns 00 Center Poor Poor Disease Active [facility] weight weight 9-13 [facility] gain of gain of 00:00: Medical , , 00 Ce nter third third trimester trimester Hyperemesi Hyperemesi Disease Active [facility] s 8-21 [facility] gravidarum gravidarum 00:00: Me dical 00 Center Raynaud's Raynaud's Disease Active [facility] phenomenon phenomenon 5-12 Deepa kes without without 00:00: Medical gangrene - gangrene - 00 Ce nter nipple nipple Hypothyroi Hypothyroi Disease Active [facility] d in d in 4-12 kes , , 00:00: Me dical antepartum antepartum 00 Ce nter , third , third trimester trimester Obesity Obesity Disease Active [facility] affecting affecting 4-12 [facility] 00:00: Medi lia in third in third 00 Center trimester trimester Nausea and Nausea and Disease Active [facility] vomiting vomiting 3-15 [facility] during during 00:00: Medical 00 Cent er History of History of Disease Active [facility] miscarriag miscarriag 3-13 Deepa kes e e 00:00: Medical 00 [place] BROKEN BROKEN Diagnosis Active 2015-082016-06-17 De moria ANKLE//FAL ANKLE//FAL 0- 21:59:00 l L L Active 00:00: Arun 06/17/2016 00 [facility] Thyroid Thyroid Disease Active [facility] disorder disorder [facility] History of Past Illness Condition Condition Condition Status Onset Resolution Last Treating Co mments Source Name Details Category Date Date Treatment Clinician Date Discharge Problem 2015-082016-06-20 2016-06-20 Memoria Diagnosis: Discharge 04:52:41 04:52:41 l Ankle Diagnosis: 05:00: Rip schultz sprain Ankle 00 sprain 06/17/2016 06/20/2016 [facility] Allergies, Adverse Reactions, Alerts Allergy Allergy Status Severity Reaction(s) Onset Inactive Treating Comm ents Source Name Type Date Date Clinician NO KNOWN Drug Active [facility] ALLERGIE Class [facility] NO KNOWN All[facility] Social History Social Habit Start Date Stop Date Quantity Comments Source ASSERTION 2022-09-[address] [facility]00 Medical Center History SDAR [facility] Alcohol Std Drinks Medica l Center History SDOH [facility] Alcohol Binge Medical [facility] History [facility] Transport Non-Med Medical Center Alcohol intake 2023-05-28 2023-05-[address] [facility] es 00:00:00 00:00:00 non-drinker Medical Cente r (finding) History [facility] 2023-05-28 2023-05-[address] [facility] Transport Med 00:00:00 00:00:[address] History [facility] 2023-05-28 2023-05-[address] [facility] Housing Unable to 00:00:00 00:00:00 Medical Center Pay History [facility] 2023-05-28 2023-05-[address] [facility] Housing Places 00:00:00 00:00:00 Medical Ce nter Lived History [facility] 2023-05-28 2023-05-[address] [facility] Housing Homeless 00:00:00 00:00:00 Medical Center Last Year Tobacco use and 2023-05-27 2023-05-[address] [facility] exposure 00:00:00 00:00:00 non-user Medical Center History [facility] 2022-10-31 2022-10-[address] [facility] Alcohol Frequency 00:00:00 00:00:00 [facility] Center Sex Assigned At [birth year] F [facility] St Deepa kes 00:00:00 00:00:00 Medical Center Smoking Status Start Date Stop Date Source Never smoked tobacco [facility] St ke s [facility] Medications Ordered Filled Start Stop Current Ordering Indication Dosage Frequency Signature Comments Components Source Medication Medication Date Date Medication? Clinician (SIG) Name Name HYDROcodone 2022-08 Yes 1/[address] -acetaminop 0-09 po every Luke s hen ([place]) 00:00: 4-6 hours M edical 7.5-325 mg 00 prn pain. Cent er per tablet docusate 2022-08 Yes 100mg Take [address] [facility] sodium 0-09 capsule [facility] (COLACE) 00:00: (100 mg Medica l 100 MG 00 total) by Center capsule mouth 2 (two) times daily as needed for Constipati on. ferrous 2022-08 Yes One po [facility] sulfate 325 0-09 daily. [facility] (65 FE) MG 00:00: Medical tablet 00 [place] ibuprofen 2022-08- Yes 800mg Take [address] [facility] (ADVIL,MOTR 0- tablet [facility] IN) 800 MG 00:00: 23:59 (800 mg Med ical tablet 00 :00 total) by Center mouth every 6 (six) hours as needed for Pain for up to 10 days. BABY 2022-08- No Take by [facility] ASPIRIN 0-02 10-02 mouth. [facility] ORAL 09:25: 00:00 Medical 50 :00 [place] levothyroxi 2023- Yes 150ug Take [address] ne 04-0212 tablet [facility] (SYNTHROID, 00:00: 23:59 (150 mcg M edical LEVOTHROID) 00 :00 total) by [facility] 150 MCG mouth tablet Every morning on an empty stomach. progesteron 2022- No 100mg QD Take [address] e 03-29 capsule [facility] (PROMETRIUM 09:43: 00:00 (100 mg Me dical ) 100 MG 36 :00 total) by [place] capsule mouth daily. levothyroxi 2022- No TAKE ONE [facility] ne 03-07 (1) [facility] (SYNTHROID, 00:00: 00:00 TABLET(S) Medical LEVOTHROID) 00 :00 BY MOUTH Cent er 137 MCG EVERY tablet MORNING ON AN EMPTY STOMACH. metoclopram 2022- No One po up [facility] elroy HCl 03-06 to 4 x/ [facility] (Reglan) 10 00:00: 00:00 day prn Me dical MG tablet 00 :00 nausea/ Center vomiting. doxylamine- 2022- No 1{tbl} Q.5D Take [address] pyridoxine, 03-06 tablet by Deepa bella vit B6, 00:00: 00:00 mouth 2 Medica l (Bonjesta) 00 :00 (two) [place] 20-20 mg times TbID daily. BABY Yes Take by [facility] ASPIRIN 7-10 mouth. [facility] ORAL 09:09: Medical 14 Center progesteron Yes 100mg QD Take [address] [facility] e 7-10 capsule [facility] (PROMETRIUM 09:09: (100 mg Med ical ) 100 MG 14 total) by Center capsule mouth daily. 2022- No 1{tbl} QD Take [address] [facility] vitamin 7-10 07-10 tablet by [facility] w/calcium-i 09:09: 00:00 mouth in edical freeman-folate 06 :00 the Center ( morning. PLUS) 27 mg iron- 1 mg Tab 2022- No 1{tbl} QD Take [address] [facility] vitamin 7-10 07-10 tablet by [facility] w/calcium-i 09:09: 00:00 mouth in edical freeman-folate 06 :00 the [place] ( morning. PLUS) 27 mg iron- 1 mg Tab ondansetron Yes One po [facility] (Zofran) 4 7-10 every 4-6 Luke [facility] MG tablet 00:00: hours prn Med ical 00 nausea/ Center vomiting. ondansetron 2022- No One po [facility] (Zofran) 4 7-10 10-09 every 4-6 Andrade es MG tablet 00:00: 00:00 hours prn Me dical 00 :00 nausea/ Center vomiting. ondansetron 2022- No 4mg Take [address] [facility] (ZOFRAN) 4 4-12 04-12 tablet (4 Andrade es MG tablet 15:36: 00:00 mg total) Me dical 49 :00 by mouth 2 Center (two) times daily as needed for Nausea. ondansetron 2022- No 4mg Take [address] [facility] (ZOFRAN) 4 4-12 04-12 tablet (4 Andrade es MG tablet 15:36: 00:00 mg total) Me dical 49 :00 by mouth 2 Center (two) times daily as needed for Nausea. levothyroxi 0 2023- No 137ug Take [address] ne 4-12 04-11 tablet [facility] (SYNTHROID, 00:00: 23:59 (137 mcg M edical LEVOTHROID) 00 :00 total) by [facility] ter 137 MCG mouth tablet Every morning on an empty stomach. levothyroxi 2022- No 137ug Take [address] ne 11-30 07-18 tablet [facility] (SYNTHROID, 00:00: 00:00 (137 mcg M edical LEVOTHROID) 00 :00 total) by [address] [facility] 137 MCG mouth tablet Every morning on an empty stomach. ondansetron 2022- No One po [facility] (Zofran) 4 4- 07-10 every 4-6 Andrade es MG tablet 00:00: 00:00 hours prn Me dical 00 :00 nausea/ Center vomiting. ondansetron 2022- No One po [facility] (Zofran) 4 4- 07-10 every 4-6 Andrade es MG tablet 00:00: 00:00 hours prn Me dical 00 :00 nausea/ Center vomiting. promethazin Yes High-risk 1/[address] [facility] e 3-13 , po every [facility] (PHENERGAN) 00:00: first 4-6 hours Medical 25 MG 00 trimester prn Center tablet nausea/ vomiting. promethazin 2022- No High-risk 1/[address] [facility] e 3-13 -25 , po every Luke s (PHENERGAN) 00:00: 00:00 first 4-6 hours Medical 25 MG 00 :00 trimester prn Center tablet nausea/ vomiting. Bonjesta 2022- No High-risk 1{tbl} Q.5D Take [address] 20-20 mg 10-31- , tablet by [facility]ukes TbID 00:00: 00:00 first mouth 2 Medical 00 :00 trimester (two) Center times daily One po qhs, then increase to bid after 3 day if no relief. Bonjesta 2022- No High-risk 1{tbl} Q.5D Take [address] 20-20 mg 3-01 12- , tablet by [facility]ukes TbID 00:00: 00:00 first mouth 2 Medical 00 :00 trimester (two) Center times daily One po qhs, then increase to bid after 3 day if no relief. levothyroxi 2022- No High-risk 125ug QD Take [address] [facility] ne 3-12 , tablet [facility] (SYNTHROID, 00:00: 00:00 first (125 mcg Medical LEVOTHROID) 00 :00 trimester total) by Center 125 MCG mouth in tablet the morning. levothyroxi 2022-0 2022- No High-risk 125ug QD Take [address] [facility] [facility] ne 10-29 , tablet [facility] (SYNTHROID, 00:00: 00:00 first [...] l Tablet 01:54: BID, # 14 Rip schultz [Pepcid] 00 tab, 0 Refill(s) Methocarbam 2015-08 Yes 1,000 mg = Memoria ol 500 MG 0-29 2 tab, PO, l Oral Tablet 01:54: QID, X 3 He rmann [Robaxin] 00 day, # 24 tab, 0 Refill(s) Famotidine 2015-08 Yes 20 mg = 1 Me moria 20 MG Oral 0-29 tab, PO, l Tablet 01:54: BID, # 14 Rip schultz [Pepcid] 00 tab, 0 Refill(s) Methocarbam 2015-08 [...] TID, l tablet 01:53: PRN Pain, Rip schultz 00 Take with food, X 3 day, # 10 tab, 0 Refill(s) ibuprofen 2015-08 Yes 800 mg, Memor ia 800 mg oral 0-29 PO, TID, l tablet 01:53: PRN Pain, Rip n 00 Take with food, X 3 day, # 10 tab, 0 Refill(s) ibuprofen 2015- Yes 800 mg, Memor ia 800 mg [...] day, # 10 tab, 0 Refill(s) ibuprofen 2015- Yes 800 mg, Memor ia 800 mg oral 0-29 PO, TID, l tablet 01:53: PRN Pain, Rip n 00 Take with food, X 3 day, # 10 tab, 0 Refill(s) ibuprofen 2015- Yes 800 mg, Memor ia 800 mg [...] 0-29 (Same as: l Tablet 01:29: Pepcid) [place] [Pepcid] 00 Robaxin 2015-08 No Notes: Memoria 0-29 (Same l 01:29: as:Robaxin ) Ibuprofen 2015-08 No Notes: Memori a 0-29 (Same as: l 01:29: Motrin) Famotidine 2015-08 No Notes: Memor ia 20 MG Oral 0-29 (Same as: l Tablet 01:29: Pepcid) [place] [Pepcid] 00 Robaxin 2015-08 No Notes: Memoria 0-29 (Same l 01:29: as:Robaxin [place] 00 ) Ibuprofen 2015-08 No Notes: Memori a 0-29 (Same as: l 01:29: Motrin) Arun 00 Famotidine 2015-08 No Notes: Memor ia 20 MG Oral 0-29 (Same as: l Tablet 01:29: Pepcid) Arun [Pepcid] 00 Robaxin 2015-08 No Notes: Memoria 0-29 (Same l 01:29: as:Robaxin Arun 00 ) Ibuprofen 2015-08 No Notes: Memori a 0-29 (Same as: l 01:29: Motrin) [place] 00 Famotidine 2015-08 No Notes: Memor ia 20 MG Oral 0-29 (Same as: l Tablet 01:29: Pepcid) [place] [Pepcid] 00 Famotidine 2015-08 No Notes: Memor ia 20 MG Oral 0-29 (Same as: l Tablet 01:29: Pepcid) [place] [Pepcid] 00 Robaxin 2015-08 No Notes: Memoria 0-29 (Same l 01:29: as:Robaxin Arun 00 ) Ibuprofen 2015-08 No Notes: Memori a 0-29 (Same as: l 01:29: Motrin) Arun 00 Robaxin 2015-08 No Notes: Memoria 0-29 (Same l 01:29: as:Robaxin Arun 00 ) Famotidine 2015-08 No Notes: Memor ia 20 MG Oral 0-29 (Same as: l Tablet 01:29: Pepcid) [place] [Pepcid] 00 Robaxin 2015-08 No Notes: Memoria 0-29 (Same l 01:29: as:Robaxin [place] 00 ) Ibuprofen 2015-08 No Notes: Memori a 0-29 (Same as: l 01:29: Motrin) Arun 00 Famotidine 2015-08 No Notes: Memor ia 20 MG Oral 0-29 (Same as: l Tablet 01:29: Pepcid) Arun [Pepcid] 00 Robaxin 2015-08 No Notes: Memoria 0-29 (Same l 01:29: as:Robaxin [place] 00 ) Ibuprofen 2015-08 No Notes: Memori a 0-29 (Same as: l 01:29: Motrin) [place] Ibuprofen 2015-08 No Notes: Memori a 0-29 (Same as: l 01:29: Motrin) [place] Famotidine 2015-08 No Notes: Memor ia 20 MG Oral 0-29 (Same as: l Tablet 01:29: Pepcid) [place] [Pepcid] 00 Robaxin 2015-08 No Notes: Memoria 0-29 (Same l 01:29: as:Robaxin Arun 00 ) Ibuprofen 2015-08 No Notes: Memori a 0-29 (Same as: l 01:29: Motrin) [place] 00 Famotidine 2015-08 No Notes: Memor ia 20 MG Oral 0-29 (Same as: l Tablet 01:29: Pepcid) [place] [Pepcid] 00 Ibuprofen 2015-08 No Notes: Memori a 0-29 (Same as: l 01:29: Motrin) [place] 00 Famotidine 2015-08 No Notes: Memor ia 20 MG Oral 0-29 (Same as: l Tablet 01:29: Pepcid) [place] [Pepcid] 00 Robaxin 2015-08 No Notes: Memoria 0-29 (Same l 01:29: as:Robaxin Arun ) Robaxin 2015-08 No Notes: Memoria 0-29 (Same l 01:29: as:Robaxin Arun 00 ) Ibuprofen 2015-08 No Notes: Memori a 0-29 (Same as: l 01:29: Motrin) Arun 00 Famotidine 2015-08 No Notes: Memor ia 20 MG Oral 0-29 (Same as: l Tablet 01:29: Pepcid) [place] [Pepcid] 00 Robaxin 2015-08 No Notes: Memoria 0-29 (Same l 01:29: as:Robaxin [place] 00 ) Ibuprofen 2015-08 No Notes: Memori a 0-29 (Same as: l 01:29: Motrin) [place] Famotidine 2015-08 No Notes: Memor ia 20 MG Oral 0-29 (Same as: l Tablet 01:29: Pepcid) Arun [Pepcid] 00 Robaxin 2015-08 No Notes: Memoria 0-29 (Same l 01:29: as:Robaxin Arun 00 ) Ibuprofen 2015-08 No Notes: Memori a 0-29 (Same as: l 01:29: Motrin) [place] 00 Famotidine 2015-08 No Notes: Memor ia 20 MG Oral 0-29 (Same as: l Tablet 01:29: Pepcid) [place] [Pepcid] 00 Robaxin 2015-08 No Notes: Memoria 0-29 (Same l 01:29: as:Robaxin Arun 00 ) Ibuprofen 2015-08 No Notes: Memori a 0-29 (Same as: l 01:29: Motrin) [place] 00 Famotidine 2015-08 No Notes: Memor ia 20 MG Oral 0-29 (Same as: l Tablet 01:29: Pepcid) [place] [Pepcid] 00 Robaxin 2015-08 No Notes: Memoria 0-29 (Same l 01:29: as:Robaxin Arun ) Ibuprofen 2015-08 No Notes: Memori a 0-29 (Same as: l 01:29: Motrin) Arun Famotidine 2015-08 No Notes: Memor ia 20 MG Oral 0-29 (Same as: l Tablet 01:29: Pepcid) [place] [Pepcid] 00 Robaxin 2015-08 No Notes: Memoria 0-29 (Same l 01:29: as:Robaxin [place] ) Ibuprofen 2015-08 No Notes: Memori a 0-29 (Same as: l 01:29: Motrin) Arun 00 Famotidine 2015-08 No Notes: Memor ia 20 MG Oral 0-29 (Same as: l Tablet 01:29: Pepcid) [place] [Pepcid] 00 Robaxin 2015-08 No Notes: Memoria 0-29 (Same l 01:29: as:Robaxin [place] 00 ) Ibuprofen 2015-08 No Notes: Memori a 0-29 (Same as: l 01:29: Motrin) [place] 00 Famotidine 2015-08 No Notes: Memor ia 20 MG Oral 0-29 (Same as: l Tablet 01:29: Pepcid) [place] [Pepcid] 00 Robaxin 2015-08 No Notes: Memoria 0-29 (Same l 01:29: as:Robaxin [place] 00 ) Ibuprofen 2015-08 No Notes: Memori a 0-29 (Same as: l 01:29: Motrin) [place] 00 Immunizations Ordered Immunization Filled Immunization Date Status Commen ts Source Name Name Tdap Unknown Completed [facility] Tdap Unknown Completed [facility] Vital Signs Vital Name Observation Time Observation Value Comments Source HEIGHT 2023-05-27 22:11:00 162.6 cm WEIGHT 2023-05-27 22:11:00 96.163 kg HEIGHT 2023-05-27 22:11:00 162.6 cm WEIGHT 2023-05-27 22:11:00 96.163 kg HEIGHT 2023-05-27 22:11:00 162.6 cm WEIGHT 2023-05-27 22:11:00 96.163 kg WEIGHT 2023-05-15 11:15:00 99.882 kg WEIGHT 2023-05-15 11:15:00 99.882 kg WEIGHT 2023-05-01 08:58:00 95.255 kg WEIGHT 2023-05-01 08:58:00 95.255 kg WEIGHT 2023-04-10 14:34:00 92.08 kg WEIGHT 2023-04-10 14:34:00 92.08 kg WEIGHT 2023-03-29 09:44:00 96.253 kg WEIGHT 2023-03-29 09:44:00 96.253 kg Systolic blood 2023-05-29 02:33:00 106 mm[Hg] [facility] Diastolic blood 2023-05-29 02:33:00 64 mm[Hg] [facility] Heart rate 2023-05-29 02:33:00 56 /min [facility] Body temperature 2023-05-29 02:33:00 36.89 Emmanuelle [facility] Respiratory rate 2023-05-29 02:33:00 18 /min [facility] Oxygen saturation in 2023-05-28 16:34:00 99 /min [facility] Arterial blood by Medical Ce nter Pulse oximetry Body height 2023-05-27 22:11:00 162.6 cm [facility] Body weight 2023-05-27 22:11:00 96.163 kg [facility] BMI 2023-05-27 22:11:00 36.39 kg/m2 [facility] Systolic blood 2023-02-27 09:10:00 98 mm[Hg] [facility] Diastolic blood 2023-02-27 09:10:00 66 mm[Hg] [facility] Heart rate 2023-02-27 09:10:00 88 /min [facility] Body temperature 2023-02-27 09:10:00 36.83 Emmanuelle [facility] Body weight 2023-02-27 09:10:00 97.07 kg [facility] BMI 2023-02-27 09:10:00 34.54 kg/m2 [facility] Body height 2022-10-31 08:09:00 167.6 cm [facility] Weight 2016-06-17 23:24:00 [facility] BMI Calculated 2016-06-17 23:24:00 [facility] Height 2016-06-17 23:24:00 162.56 cm [facility] Respitory Rate 2016-06-17 23:24:00 [facility] Heart Rate 2016-06-17 23:24:00 [facility] Temperature Oral (F) 2016-06-17 23:24:00 98.2 F [facility] Systolic (mm Hg) 2016-06-17 23:24:00 [facility] Diastolic (mm Hg) 2016-06-17 23:24:00 [facility] Procedures Procedure Date / Time Performing Clinician Source Performed CBC W/PLT COUNT & AUTO 2023-05-29 02:37:[address] [facility] CBC W/PLT COUNT & AUTO 2023-05-29 02:37:[address] [facility] ABORH, MANUAL 2023-05-28 04:00:00 Juany Young [facility] ANESTHESIA EPIDURAL BLOCK 2023-05-28 01:58:41 Kulwinder Sandhu [facility] CBC W/PLT COUNT & AUTO 2023-05-28 00:49:[address] [facility] HEPATITIS B SURFACE 2023-05-28 00:49:00 Yary Oconnor [facility] RPR 2023-05-28 00:49:00 Yary Oconnor [facility] HC LAB HIV-1 AG W/HIV-1&2 2023-05-28 00:49:00 Yary Oconnor [facility] TYPE AND SCREEN, AUTOMATED 2023-05-28 00:49:00 Yary Oconnor [facility] CBC W/PLT COUNT & AUTO 2023-05-28 00:49:[address] [facility] POCT AMB URINE DIPSTICK 2023-05-22 09:31:00 Yary Oconnor [facility] POCT AMB URINE DIPSTICK 2023-05-15 11:53:00 Yary Oconnor [facility] GROUP B STREP CULTURE + 2023-05-15 11:49:00 Yary Oconnor [facility] SMEAR [facility] SPECIMEN STATUS 2023-05-15 11:49:00 Yary Oconnor [facility] US OB FOLLOW UP 2023-05-01 10:00:00 Yary Oconnor [facility] TRANSABDOMINAL APPROACH [facility] 2023-05-01 09:52:00 Yary Oconnor [facility] T4, FREE 2023-05-01 09:52:00 Yary Oconnor [facility] CBC W/PLT COUNT & AUTO 2023-05-01 09:52:[address] [facility] COMPREHENSIVE METABOLIC 2023-04-10 15:20:00 Yary Oconnor [facility] PANEL [facility] POCT AMB URINE DIPSTICK 2023-04-10 15:18:00 Yary Oconnor [facility] GEST DIABETES 1-HR SCREEN 2023-03-29 10:18:00 Yary Oconnor [facility] 2023-03-29 10:18:00 Yary Oconnor [facility] T4, FREE 2023-03-29 10:18:00 Yary Oconnor [facility] CBC W/PLT COUNT & AUTO 2023-03-29 10:18:[address] [facility] HIV-1 ANTIGEN WITH HIV-1/2 2023-03-29 10:18:00 Yary Oconnor robert [facility] ANTIBODY [facility] RPR (DX) W/REFL TITER AND 2023-03-29 10:18:00 Yary Oconnor [facility] CONFIRMATORY TESTING Medical [place] [facility] IP CONSULT TO PERINATOLOGY 2023-02-03 00:00:00 Yary Oconnor [facility] POCT AMB URINE DIPSTICK 2023-01-23 15:24:00 Yary Oconnor [facility] COMPREHENSIVE METABOLIC 2023-01-23 14:49:00 Yary Oconnor [facility] CBC W/PLT COUNT & AUTO 2023-01-23 14:49:[address] [facility] TSH 2023-01-23 14:49:00 Yary Oconnor [facility] T4, FREE 2023-01-23 14:49:00 Yary Oconnor [facility] PROGESTERONE 2023-01-23 14:49:00 Yary Oconnor [facility] POCT AMB URINE DIPSTICK 2022-12-30 10:48:00 Yary Oconnor [facility] IGP, RFX APTIMA HPV ASCU 2022-12-30 09:06:00 Yary Oconnor [facility] CERVICAL CANCER B 2022-12-30 09:06:00 Yary Oconnor [facility] SCREENING ONLY- NO STD'S [facility] IGP, RFX APTIMA HPV ASCU 2022-12-30 09:06:00 Yary Oconnor [facility] PROGESTERONE 2022-12-30 08:49:00 Yary Oconnor [facility] TSH 2022-12-30 08:49:00 Yary Oconnor [facility] T4, FREE 2022-12-30 08:49:00 Yary Oconnor [facility] OB LIMITED 1 + FETUSES 2022-11-30 16:25:00 Yary Oconnor [facility] POCT AMB URINE DIPSTICK 2022-11-30 15:15:00 Yary Oconnor [facility] APT-SANJIV, AMNIOTIC 2022-11-30 00:00:00 Provider, Historical [facility] OB TRANSVAGINAL 2022-11-14 14:26:00 Yary Oconnor [facility] PROGESTERONE 2022-11-03 10:25:00 Yary Oconnor [facility] URINE CULTURE, ROUTINE 2022-10-31 16:35:00 Yary Oconnor [facility] CHLAMYDIA/GC ANA, 2022-10-31 16:35:[address] [facility] URINALYSIS, ROUTINE 2022-10-31 16:35:00 Yary Oconnor [facility] MICROSCOPIC EXAMINATION 2022-10-31 16:35:00 Yary Oconnor [facility] OB TRANSVAGINAL 2022-10-31 13:10:00 Yary Oconnor [facility] POCT , URINE 2022-10-31 09:28:00 Yary Oconnor [facility] HIV-1 ANTIGEN WITH HIV-1/2 2022-10-31 09:16:00 Yary Oconnor [facility] ANTIBODY [facility] RPR (DX) W/REFL TITER AND 2022-10-31 09:16:00 Yary Oconnor [facility] CONFIRMATORY TESTING Medical [address] [facility] HEPATITIS C ANTIBODY 2022-10-31 09:16:00 Yary Oconnor [facility] CBC W/PLT COUNT & AUTO 2022-10-31 09:16:00 Yary Oconnor [facility] DIFFERENTIAL [facility] HEPATITIS B SURFACE 2022-10-31 09:16:00 Yary Oconnor [facility] ANTIGEN [facility] RUBELLA ANTIBODY, IGG 2022-10-31 09:16:00 Yary Oconnor [facility] ANTIBODY SCREEN ([facility] & 2022-10-31 09:16:00 Yary Oconnor [facility] QUEST ONLY) [facility] TSH 2022-10-31 09:16:00 Yary Oconnor [facility] T4, FREE 2022-10-31 09:16:00 Yary Oconnor [facility] ABORH, MANUAL 2022-10-31 09:16:00 Anastasia Yary Carolyn [facility] Plan of Care Planned Activity Planned Date Details Comments Source Future Scheduled 2033-05-01 DTAP/TDAP/TD VACCINES [facility] 00:00:00 (3 - Td or Tdap) Medical [address] [code = DTAP/TDAP/TD VACCINES (3 - Td or Tdap)] Future Scheduled 2030-04-22 DTAP/TDAP/TD VACCINES [facility] Test 00:00:00 (2 - Td or Tdap) [facility] [address] [facility] [code = DTAP/TDAP/TD VACCINES (2 - Td or Tdap)] Future Scheduled 2024-05-[address] [facility] Test 00:00:00 [facility] Scre[facility] (12+) [code = Tobacco Cessation Counseling and Screening (12+)] Future Scheduled 2024-01-[address] [facility] 00:00:00 [facility] (12+) [code = Tobacco Cessation Counseling and Screening (12+)] Future Scheduled 2023-04-[address] [facility] 00:00:00 (#1) [code = [facility] Influenza Vaccine (#1)] Future Scheduled 2023-04-[address] [facility] 00:00:00 (#1) [code = [facility] Influenza Vaccine (#1)] Future Scheduled [address] [facility]:00 [facility] cervix (procedure) [code = [id number]] Future Scheduled 2015 [facility] for [facility] 00:[facility]:00 malignant neoplasm of [facility] cervix (procedure) [code = 894720226] Future Scheduled [address] [facility] 00:00:00 (procedure) [code = [facility] 19779088] Future Scheduled [address] [facility] Test 00:00:00 (procedure) [code = [facility] [id number]] Future Scheduled 1994 COVID-19 VACCINE (#1) [facility]:00 [code = COVID-[address] VACCINE (#1)] Future Scheduled 1994 COVID-19 VACCINE (#1) [facility] 00:[facility]:00 [code = COVID-[address] VACCINE (#1)] Encounters Start End Encounter Admission Attending Care Care Encounter Source Date/Time Date/Time Type Type Clinicians Facility Department ID 2023-07-10 2023-07-10 Outpatient HALEY OCONNOR [facility] [id number] 00:00:00 00:00:00 [facility] 2023-06-05 2023-06-05 Outpatient HALEY ANASTASIA [facility] [id number] 00:00:00 00:00:00 [facility] 2023-05-30 2023-05-30 Outpatient HALEY OCONNOR [facility] [id number] 00:00:00 00:00:00 [facility] 2023-05-27 2023-05-29 Inpatient HALEY ANASTASIA [facility] Obstetrics [id number] SLS 21:57:00 11:36:00 [facility] 2023-05-27 2023-05-29 [facility] Anastasia [facility] [id number] 21:57:00 11:36:00 Encounter [facility] 2023-05-29 2023-05-29 [place] Anastasia [facility] [id number] 00:[facility]00 00:00:00 [facility] 2023-05-28 2023-05-28 Anesthesia Kulwinder Freeman [facility] [id number] 01:29:00 04:17:00 Event Kulwinder Sandhu [facility] 2023-05-22 2023-05-22 Outpatient EL KARART, [facility] [id number] 09:00:43 09:24:03 [facility] 2023-05-22 2023-05-22 Routine Karart, [facility] [id number] 09:00:00 09:24:03 [facility] 2023-05-22 2023-05-22 Telephone Anastasia [facility] [id number] 00:00:00 00:00:00 [facility] 2023-05-15 2023-05-15 Outpatient EL ANASTASIA, [facility] [id number] 11:03:01 11:47:23 [facility] 2023-05-15 2023-05-15 Routine Karart, [facility] [id number] 11:00:00 11:47:23 [facility] 2023-05-01 2023-05-01 Routine Anastasia, [facility] [id number] 09:00:00 09:52:28 [facility] 2023-05-01 2023-05-01 Outpatient EL ANASTASIA, [facility] [id number] 08:48:42 09:52:28 [facility] 2023-05-01 2023-05-01 Outpatient EL [facility] [id number] 08:48:26 09:52:06 [facility] 2023-04-17 2023-04-17 Outpatient EL ANASTASIA, [facility] [id number] 00:00:00 00:00:00 [facility] 2023-04-17 2023-04-17 Telephone Anastasia [facility] [id number] 00:00:00 00:00:00 [facility] 2023-04-10 2023-04-10 Outpatient EL ANASTASIA, [facility] [id number] 14:18:08 15:17:04 [facility] 2023-04-10 2023-04-10 Routine Karart, [facility] [id number] 14:15:00 15:17:04 [facility] 2023-04-10 2023-04-10 Telephone Anastasia, [facility] [id number] 00:00:00 00:00:00 [facility] 2023-04-02 2023-04-02 Orders Anastasia, [facility] [id number] 00:00:00 00:00:00 Only [facility] 2023-03-29 2023-03-29 Outpatient EL ANASTASIA, [facility] [id number] 09:33:57 10:19:03 [facility] 2023-03-29 2023-03-29 Routine Anastasia, [facility] [id number] 09:30:00 10:19:03 [facility] 2023-03-27 2023-03-27 Outpatient EL ANASTASIA, [facility] [id number] 00:00:00 00:00:00 [facility] 2023-03-23 2023-03-23 Telephone Anastasia, [facility] [id number] 00:00:00 00:00:00 [facility] 2023-03-14 2023-03-14 Telephone Anastasia, [facility] [id number] 00:00:00 00:00:00 [facility] 2023-03-06 2023-03-06 Refill Anastasia, [facility] [id number] 00:00:00 00:00:00 [facility] 2023-03-06 2023-03-06 Orders Karges, [facility] [id number] 00:00:00 00:00:00 Only [facility] 2023-03-06 2023-03-06 Telephone Karges, [facility] [id number] 00:00:00 00:00:00 [facility] 2023-02-27 2023-02-27 Routine EL Karges, [facility] [id number] 09:00:00 09:35:06 [facility] 2023-02-27 2023-02-27 Routine Karges, [facility] [id number] 09:00:00 09:35:06 [facility] 2023-02-27 2023-02-27 Telephone Karges, [facility] [id number] 00:00:00 00:00:00 [facility] 2023-02-27 2023-02-27 Telephone Karges, [facility] [id number] 00:00:00 00:00:00 [facility] 2023-02-03 2023-02-03 Orders Karges, [facility] [id number] 00:00:00 00:00:00 Only [facility] 2023-02-03 2023-02-03 Orders Karges, [facility] [id number] 00:00:00 00:00:00 Only [facility] 2023-01-23 2023-01-23 Routine EL Karges, [facility] [id number] 14:15:00 14:42:02 [facility] 2023-01-23 2023-01-23 Routine Karges, [facility] [id number] 14:15:00 14:42:02 [facility] 2023-01-03 2023-01-03 Telephone Anastasia, [facility] [id number] 00:00:00 00:00:00 [facility] 2023-01-03 2023-01-03 Telephone Anastasia, [facility] [id number] 00:00:00 00:00:00 [facility] 2022-12-30 2022-12-30 Routine EL Anastasia, [facility] [id number] 08:15:00 08:47:16 [facility] 2022-12-30 2022-12-30 Routine Valerioart, [facility] [id number] 08:15:00 08:47:16 [facility] 2022-12-12 2022-12-12 Abstract Anastasia, [facility] [id number] 00:00:00 00:00:00 [facility] 2022-12-12 2022-12-12 Abstract Anastasia, [facility] [id number] 00:00:00 00:00:00 [facility] 2022-11-30 2022-11-30 Routine EL Anastasia, [facility] [id number] 15:00:00 15:36:32 [facility] 2022-11-30 2022-11-30 Routine Valerioart, [facility] [id number] 15:00:00 15:36:32 [facility] 2022-11-30 2022-11-30 Outpatient EL [facility] [id number] 14:47:07 15:36:20 [facility] 2022-11-30 2022-11-30 Telephone Valerioart, [facility] [id number] 00:00:00 00:00:00 [facility] 2022-11-30 2022-11-30 Telephone Anastasia, [facility] [id number] 00:00:00 00:00:00 [facility] 2022-11-14 2022-11-14 Office EL Anastasia, [facility] [id number] 08:45:00 09:08:48 Visit [facility] 2022-11-14 2022-11-14 Office Anastasia, [facility] [id number] 08:45:00 09:08:48 Visit [facility] 2022-11-10 2022-11-10 Telephone Anastasia, [facility] [id number] 00:00:00 00:00:00 [facility] 2022-11-10 2022-11-10 Telephone Anastasia, [facility] [id number] 00:00:00 00:00:00 [facility] 2022-10-31 2022-10-31 Office EL Anastasia, [facility] [id number] 08:00:00 09:10:46 Visit [facility] 2022-10-31 2022-10-31 Office Anastasia, [facility] [id number] 08:00:00 09:10:46 Visit [facility] 2022-10-31 2022-10-31 Outpatient EL [facility] [id number] 07:52:13 09:10:31 [facility] 2022-10-31 2022-10-31 Telephone Valerioart, [facility] [id number] 00:00:00 00:00:00 [facility] 2022-10-31 2022-10-31 Telephone Anastasia, [facility] [id number] 00:00:00 00:00:00 Y[facility] 2022-10-21 2022-10-21 Outpatient R STEPHANIE MI[facility] [id number] [facility] 14:30:00 14:30:00 STEPHANIE MIKE [facility] 2022-02-16 2022-02-16 Outpatient R [facility]PHANIE MI[facility] B [id number] [facility] 10:00:00 10:00:00 STEPHANIE MIKE [id number] [facility] 2019-12-14 2019-12-14 Outpatient R RUSS [facility] [id number] [facility] 12:00:00 12:00:00 ATTENDING [facility] 2016-06-17 2016-06-18 Emergency [facility] [id number] [facility] 23:14:00 02:13:00 r [place] 00 l [facility] 2016-06-17 2016-06-18 Emergency [facility] [id number] [facility] 23:14:00 02:13:00 r [place] 00 [facility] 2016-06-17 2016-06-17 Outpatient Gato, Hayley 9 [id number] 18:14:00 21:13:00 Alvin Pete Results Test Description Test Time Test Comments Results Result Comments Source CBC W/PLT COUNT & AUTO DIFFERENTIAL 2023-05-29 03:05:11 Test Item Value Reference Range Interpretation Comme nts WHITE BLOOD CELL COUNT (BEAKER) (test code = 775) 13.9 K/ L 4.0- 10.0 H RED BLOOD CELL COUNT (BEAKER) (test code = 761) 3.59 M/ L 4.00-5 .00 L HEMOGLOBIN (BEAKER) (test code = 410) 10.0 GM/DL 12.0-15.5 L HEMATOCRIT (BEAKER) (test code = 411) 31.2 % 36.0-46.0 L MEAN CORPUSCULAR VOLUME (BEAKER) (test code = 753) 87 fL 82- 99 MEAN CORPUSCULAR HEMOGLOBIN (BEAKER) (test code = 751) 27.9 pg 27.0-33.0 MEAN CORPUSCULAR HEMOGLOBIN CONC (BEAKER) (test code = 752) 32.1 GM/DL 32.0-36.0 RED CELL DISTRIBUTION WIDTH (BEAKER) (test code = 412) 13.5 % 12.0-15.0 PLATELET COUNT (BEAKER) (test code = 756) 161 K/CU MM 150-430 MEAN PLATELET VOLUME (BEAKER) (test code = 754) 11.3 fL 6.0-11 .5 NUCLEATED RED BLOOD CELLS (BEAKER) (test code = 413) 0 /100 WBC 0 -0 NEUTROPHILS RELATIVE PERCENT (BEAKER) (test code = 429) 68 % LYMPHOCYTES RELATIVE PERCENT (BEAKER) (test code = 430) 23 % MONOCYTES RELATIVE PERCENT (BEAKER) (test code = 431) 7 % EOSINOPHILS RELATIVE PERCENT (BEAKER) (test code = 432) 1 % BASOPHILS RELATIVE PERCENT (BEAKER) (test code = 437) 0 % NEUTROPHILS ABSOLUTE COUNT (BEAKER) (test code = 670) 9.48 K/ L 1.80-8.00 H LYMPHOCYTES ABSOLUTE COUNT (BEAKER) (test code = 414) 3.20 K/ L 1.48-4.50 MONOCYTES ABSOLUTE COUNT (BEAKER) (test code = 415) 0.91 K/ L 0. 00-1.30 EOSINOPHILS ABSOLUTE COUNT (BEAKER) (test code = 416) 0.14 K/ L 0.00-0.50 BASOPHILS ABSOLUTE COUNT (BEAKER) (test code = 417) 0.05 K/ L 0. 00-0.20 IMMATURE GRANULOCYTES-RELATIVE PERCENT (BEAKER) (test code 0.70 % 0.00-0.00 H = 2801) [id number] 09:38:54 Test Item Value Reference Range Interpretation Comments RPR SCREEN (BEAKER) (test code = Nonreactive Nonreactive 420) HIV-1 ANTIGEN WITH HIV-1/2 [id number] 01:37:23 Test Item Value Reference Range Interpretation Comments HIV-1 ANTIGEN WITH HIV 1\T\2 Nonreactive Nonreactive ANTIBODY (2) (BEAKER) (test code = 2586) Deck Mate ID - LEVIOTAHEPATITIS B SURFACE [id number] 01:35:43 Test Item Value Reference Range Interpretation Comments HEPATITIS B SURFACE ANTIGEN (2) Nonreactive Nonreactive (BEAKER) (test code = 2585) Deck Mate ID - LEVIOTACBC W/PLT COUNT & AUTO [id number] 01:04:15 Test Item Value Reference Range Interpretation Comments WHITE BLOOD CELL COUNT (BEAKER) 12.5 K/ L 4.0-10.0 H (test code = 775) RED BLOOD CELL COUNT (BEAKER) 4.45 M/ L 4.00-5.00 (test code = 761) HEMOGLOBIN (BEAKER) (test code = 12.2 GM/DL 12.0-15.5 410) HEMATOCRIT (BEAKER) (test code = 37.8 % 36.0-46.0 411) MEAN CORPUSCULAR VOLUME (BEAKER) 85 fL 82-99 (test code = 753) MEAN CORPUSCULAR HEMOGLOBIN 27.4 pg 27.0-33.0 (BEAKER) (test code = 751) MEAN CORPUSCULAR HEMOGLOBIN CONC 32.3 GM/DL 32.0-36.0 (BEAKER) (test code = 752) RED CELL DISTRIBUTION WIDTH 13.5 % 12.0-15.0 (BEAKER) (test code = 412) PLATELET COUNT (BEAKER) (test 203 K/CU MM 150-430 code = 756) MEAN PLATELET VOLUME (BEAKER) 11.5 fL 6.0-11.5 (test code = 754) NUCLEATED RED BLOOD CELLS 0 /100 WBC 0-0 (BEAKER) (test code = 413) NEUTROPHILS RELATIVE PERCENT 72 % (BEAKER) (test code = 429) LYMPHOCYTES RELATIVE PERCENT 18 % (BEAKER) (test code = 430) MONOCYTES RELATIVE PERCENT 8 % (BEAKER) (test code = 431) EOSINOPHILS RELATIVE PERCENT 1 % (BEAKER) (test code = 432) BASOPHILS RELATIVE PERCENT 1 % (BEAKER) (test code = 437) NEUTROPHILS ABSOLUTE COUNT 8.95 K/ L 1.80-8.00 H (BEAKER) (test code = 670) LYMPHOCYTES ABSOLUTE COUNT 2.23 K/ L 1.48-4.50 (BEAKER) (test code = 414) MONOCYTES ABSOLUTE COUNT (BEAKER) 0.95 K/ L 0.00-1.30 (test code = 415) EOSINOPHILS ABSOLUTE COUNT 0.13 K/ L 0.00-0.50 (BEAKER) (test code = 416) BASOPHILS ABSOLUTE COUNT (BEAKER) 0.06 K/ L 0.00-0.20 (test code = 417) IMMATURE GRANULOCYTES-RELATIVE 1.20 % 0.00-0.00 H PERCENT (BEAKER) (test code = 2801) POCT OB Urine [id number] 09:31:00 Test Item Value Reference Range Interpretation Comments Color, UA (test code Paulette Light Yellow, A = 9796-4) Yellow Clarity, UA (test Clear Clear code = 18654-2) Glucose Urine, POC Negative (test code = 09725-5) Bilirubin Urine, POC Small Negative A (test code = 5770-3) Ketones Urine, POC >=160 mg/dL (test code = 2514-8) Specific [place] 1.025 SG Ratio See_Comment [Automat ed Urine, POC [...] code = 5794-3) pH, Urine (test code 6.0 pH units See_Comment [Autom ated = 5803-2) message] The system which generated this result transmit jane reference range : 5.0 pH units, 5 .5 pH units, 6.0 p H units, 6.5 pH units, 7.0 pH units, 7.5 pH units, 8.0 pH units. The reference range was not used to interpret this result as normal/abnormal . Protein Urine, POC Trace Negative A (test code = 26277-4) Urobilinogen Urine, 2.0 pH units POC (test code = 6489217) Leukocyte Esterase Small Negative A Urine, POC (test code = 0929058) Nitrite Urine, POC Negative Negative (test code = 3740649) Lab Interpretation Abnormal (test code = 33978-9) [facility] + [id number] 09:13:00 Test Item Value Reference Range Interpretation Comments STREP GP B Negative Negative Centers for Dis ease Control CULTURE+RFL and Prevention (CDC) and X (test [place] ssof code = Obstetricians a nd 3600) Gynecologists ( ACOG) guidelines for prevention ofperinatal genesis up B streptococcal ( GBS) disease specify co-jovan ection ofa vaginal and rec fouzia swab specimen to max imize sensitivity of GBSdetection. Per the CDC and ACOG, swabbing both t he lower vagina andrectu m substantially i ncreases the yield of detect ion compared withsampling th e vagina alone.Penicilli n G, ampicillin, or cefazolin are indicated for intrapartumprop hylaxis of GBS c olonization. Reflex suscepti bilitytesting should be perfo rmed prior to use of clindamy israel only on GBSisolates fro m penicillin-nataliya rgic women who are conside red a high riskfor anaphyl axis. Treatment with vancomycin without additio nal testingis warranted if re sistance to clindamycin is noted. RISHI (test Performed at: code = RISHI) - [address] [id number] Director: Gerardo Nichols MD, Phone: [phone] [id number] [facility]:13:00 Test Item Value Reference Range Interpretation Comments Specimen Status Comment Test Code Ch angeTest (test code = Code ChangePlea se 0459259) note that the Microbiology te st code was change d to reflectthe spec imen source or trans port received. RISHI (test code = Performed at: RISHI) [address] [id number] Director: Gerardo Nichols MD, Phone: [phone] [facility], [id number] 04:08:00 Test Item Value Reference Range Interpretation Comments T4,Free(Direct) (test 1.26 ng/dL 0.82-1.77 code = 20120326) Thyroxine (T4) (test code 13.4 ug/dL 4.5-12.0 H = 20110102) RISHI (test code = RISHI) Performed at: - [address] [id number] Director: Gerardo Nichols MD, Phone: [phone] Lab Interpretation (test Abnormal code = 08396-7) [id number] 04:08:00 Test Item Value Reference Range Interpretation Comments TSH (test code 2.150 See_Comment [Automated m essage] = ) The system whic h generated this result transmit jane reference range : 0.450 - 4.50 uI U/mL. The reference r robert was not used to interpret this result as normal/abnormal . RISHI (test code Performed at: 01 - = RISHI) [id number] [place], [place] [id number] Director: Gerardo Nichols MD, Phone: [phone] [facility]/ PLT COUNT AUTO [id number] 04:08:00 Test Item Value Reference Range Interpretation Comments WBC (test code = 9.5 See_Comment [Automated ) message] The system which generated this result transmitted reference range : 3.4 - 10.8 x10E3/uL. The reference range was not used to interpret this result as normal/abnormal . RBC (test code = 4.02 See_Comment [Automated 397-3) message] The system which generated this result transmitted reference range : 3.77 - 5.28 x10E6/uL. The reference range was not used to interpret this result as normal/abnormal . Hemoglobin (test code 11.8 g/dL 11.1-15.9 = ) Hematocrit (test code 35.7 % 34.0-46.6 = ) MCV (test code = 89 fL 79-97 ) MCH (test code = 29.4 pg 26.6-33.0 ) MCHC (test code = 33.1 g/dL 31.5-35.7 ) RDW (test code = 12.1 % 11.7-15.4 ) Platelets (test code 179 See_Comment [Autom ated = ) message] The system which generated this result transmitted reference range : 150 - 450 x10E3/uL. The reference range was not used to interpret this result as normal/abnormal . % Neutros (test code 78 % Not Estab. = ) % Lymphs (test code = 15 % Not Estab. ) % Monos (test code = 5 % Not Estab. ) % Eos (test code = 1 % Not Estab. ) % Baso (test code = 0 % Not Estab. ) # Neutros (test code 7.3 See_Comment H [Autom ated = ) message] The system which generated this result transmitted reference range : 1.4 - 7.0 x10E3/uL. The reference range was not used to interpret this result as normal/abnormal . # Lymphs (test code = 1.4 See_Comment [Auto mated ) message] The system which generated this result transmitted reference range : 0.7 - 3.1 x10E3/uL. The reference range was not used to interpret this result as normal/abnormal . # Monos (test code = 0.5 See_Comment [Autom ated ) message] The system which generated this result transmitted reference range : 0.1 - 0.9 x10E3/uL. The reference range was not used to interpret this result as normal/abnormal . # Eos (test code = 0.1 See_Comment [Automat ed ) message] The system which generated this result transmitted reference range : 0.0 - 0.4 x10E3/uL. The reference range was not used to interpret this result as normal/abnormal . Baso (Absolute) (test 0.0 See_Comment [Auto mated code = ) message] The system which generated this result transmitted reference range : 0.0 - 0.2 x10E3/uL. The reference range was not used to interpret this result as normal/abnormal . % Immature Grans 1 % Not Estab. (test code = ) # Immature Grans 0.1 See_Comment [Automated (test code = ) messag e] The system which generated this result transmitted reference range : 0.0 - 0.1 x10E3/uL. The reference range was not used to interpret this result as normal/abnormal . RISHI (test code = RISHI) Performed at: [facility] [id number] Director: Gerardo Nichols MD, Phone: [phone] Lab Interpretation Abnormal (test code = 04850-4) [facility] follow-up transabdominal approach 2023-05-01 10:00:00Biparietal DiameterAbdominal CircumferenceFemoral DiameterHead CircumferenceHC/ACEstimated WeightCHI [facility] Comprehensive metabolic [id number] 07:11:00 Test Item Value Reference Range Interpretation Comments Glucose, Serum (test 83 mg/dL 70-99 code = 20101221) BUN (test code = 7 mg/dL 6-20 20101222) Creatinine, Serum 0.39 mg/dL 0.57-1.00 L (test code = 20110114) EGFR (test code = 138 mL/min/1.73 >=59 [id number]) BUN/Creatinine Ratio 18 9-23 (test code = 8466560) Sodium, Serum (test 139 mmol/L 134-144 code = 2091100) Potassium, Serum 4.0 mmol/L 3.5-5.2 (test code = 20110106) Chloride, Serum (test 106 mmol/L 96-106 code = 20110108) Carbon Dioxide, Total 21 mmol/L 20-29 (test code = ) Calcium, Serum (test 8.6 mg/dL 8.7-10.2 L code = 3990768) Protein, Total, Serum 5.9 g/dL 6.0-8.5 L (test code = 20101226) Albumin, Serum (test 3.3 g/dL 4.0-5.0 L code = 20101227) Globulin, Total (test 2.6 g/dL 1.5-4.5 code = 1487454) A/G Ratio (test code 1.3 1.2-2.2 = ) Bilirubin, Total 0.4 mg/dL 0.0-1.2 (test code = 20101228) Alkaline Phosphatase, 99 See_Comment [Auto mated S (test code = message] The 6768-6) system which generated this result transmitted reference range : 44 - 121 IU/L. The reference range was not used to interpr et this result as normal/abnormal . AST (SGOT) (test code 14 See_Comment [Auto mated = 20110101) message] The system which generated this result transmitted reference range : 0 - 40 IU/L. Th e reference range was not used to interpret this result as normal/abnormal . ALT (SGPT) (test code 10 See_Comment [Auto mated = ) message] The system which generated this result transmitted reference range : 0 - 32 IU/L. Th e reference range was not used to interpret this result as normal/abnormal . RISHI (test code = RISHI) Performed at: [facility] [address] [id number] Director: Gerardo Nichols MD, Phone: [phone] Lab Interpretation Abnormal (test code = 93413-9) [facility] 1-HR [id number] 12:11:00 Test Item Value Reference Interpretation Comments Range Gestational 95 mg/dL 70-139 According to AD A, a Diabetes Screen glucose thre shold of (test code = >139 mg/dL afte r ) 50-gramload elroy ntifies approximately 8 0% of women with gestationaldiab etes mellitus, while the sensitivity is further increased toapproximately 90% by a threshold of >1 29 mg/dL. RISHI (test code = Performed at: [facility]) [facility] [id number] Director: Gerardo Nichols MD, Phone: [phone] [facility] W/REFL TITER AND CONFIRMATORY TESTING 2023-03-30 12:11:00 Test Item Value Reference Range Interpretation Comments RPR (test code = Non Reactive Non Reacti [id number]) RISHI (test code = Performed at: - [facility]) [facility] [id number] Director: Gerardo Nichols MD, Phone: [phone] [facility]Com[facility] [id number] 04:07:00 Test Item Value Reference Range Interpretation Comments Glucose, Serum (test 78 mg/dL 70-99 code = 2547753) BUN (test code = 8 mg/dL 6-20 [id number]) Creatinine, Serum 0.52 mg/dL 0.57-1.00 L (test code = 4882057) EGFR (test code = 130 mL/min/1.73 >=59 [id number]) BUN/Creatinine Ratio 15 9-23 (test code = 9250826) Sodium, Serum (test 137 mmol/L 134-144 code = 9070425) Potassium, Serum 3.7 mmol/L 3.5-5.2 (test code = 7498527) Chloride, Serum (test 103 mmol/L 96-106 code = 20110108) Carbon Dioxide, Total 22 mmol/L 20-29 (test code = ) Calcium, Serum (test 8.9 mg/dL 8.7-10.2 code = 20101219) Protein, Total, Serum 5.8 g/dL 6.0-8.5 L (test code = 20101226) Albumin, Serum (test 3.4 g/dL 3.9-5.0 L code = 20101227) Globulin, Total (test 2.4 g/dL 1.5-4.5 code = 7908302) A/G Ratio (test code 1.4 1.2-2.2 = ) Bilirubin, Total 0.4 mg/dL 0.0-1.2 (test code [...] RISHI (test code = RISHI) Performed at: [facility] [id number] Director: Gerardo Nichols MD, Phone: [phone] Lab Interpretation Abnormal (test code = 21739-5) [facility], [id number] 04:07:00 Test Item Value Reference Range Interpretation Comments T4,Free(Direct) (test 1.14 ng/dL 0.82-1.77 code = 20120326) Thyroxine (T4) (test code 13.0 ug/dL 4.5-12.0 H = 20110102) RISHI (test code = RISHI) Performed at: [facility] [id number] Director: Gerardo Nichols MD, Phone: [phone] Lab Interpretation (test Abnormal code = 37897-8) [facility]TSH2023-[facility] 04:07:00 Test Item Value Reference Range Interpretation Comments TSH (test code 3.980 See_Comment [Automated m essage] = ) The system whic h generated this result transmit jane reference range : 0.450 - 4.50 uI U/mL. The reference r robert was not used to interpret this result as normal/abnormal . RISHI (test code Performed at: 01 - = RISHI) [facility] [address] [place], [place] [id number] Director: Gerardo Nichols MD, Phone: [phone] [facility] HospitalCBC W/ PLT COUNT AUTO [id number] 04:07:00 Test Item Value Reference Range Interpretation Comments WBC (test code = 9.6 See_Comment [Automated ) message] The system which generated this result transmitted reference range : 3.4 - 10.8 x10E3/uL. The reference range was not used to interpret this result as normal/abnormal . RBC (test code = 3.85 See_Comment [Automated 841-8) message] The system which generated this result transmitted reference range : 3.77 - 5.28 x10E6/uL. The reference range was not used to interpret this result as normal/abnormal . Hemoglobin (test code 11.7 g/dL 11.1-15.9 = ) Hematocrit (test code 35.3 % 34.0-46.6 = ) MCV (test code = 92 fL 79-97 ) MCH (test code = 30.4 pg 26.6-33.0 ) MCHC (test code = 33.1 g/dL 31.5-35.7 ) RDW (test code = 12.9 % 11.7-15.4 ) Platelets (test code 210 See_Comment [Autom ated = ) message] The system which generated this result transmitted reference range : 150 - 450 x10E3/uL. The reference range was not used to interpret this result as normal/abnormal . % Neutros (test code 74 % Not Estab. = ) % Lymphs (test code = 17 % Not Estab. ) % Monos (test code = 7 % Not Estab. ) % Eos (test code = 1 % Not Estab. ) % Baso (test code = 0 % Not Estab. ) # Neutros (test code 7.1 See_Comment H [Autom ated = ) message] The system which generated this result transmitted reference range : 1.4 - 7.0 x10E3/uL. The reference range was not used to interpret this result as normal/abnormal . # Lymphs (test code = 1.7 See_Comment [Auto mated ) message] The system which generated this result transmitted reference range : 0.7 - 3.1 x10E3/uL. The reference range was not used to interpret this result as normal/abnormal . # Monos (test code = 0.6 See_Comment [Autom ated ) message] The system which generated this result transmitted reference range : 0.1 - 0.9 x10E3/uL. The reference range was not used to interpret this result as normal/abnormal . # Eos (test code = 0.1 See_Comment [Automat ed ) message] The system which generated this result transmitted reference range : 0.0 - 0.4 x10E3/uL. The reference range was not used to interpret this result as normal/abnormal . Baso (Absolute) (test 0.0 See_Comment [Auto mated code = ) message] The system which generated this result transmitted reference range : 0.0 - 0.2 x10E3/uL. The reference range was not used to interpret this result as normal/abnormal . % Immature Grans 1 % Not Estab. (test code = ) # Immature Grans 0.1 See_Comment [Automated (test code = ) messag e] The system which generated this result transmitted reference range : 0.0 - 0.1 x10E3/uL. The reference range was not used to interpret this result as normal/abnormal . RISHI (test code = RISHI) Performed at: [address] [place] [id number] Director: Gerardo Nichols MD, Phone: [phone] Lab Interpretation Abnormal (test code = 13930-3) [facility] Hospita[id number] 04:07:00 Test Item Value Reference Range Interpretation Comments Progesterone (test 34.9 ng/mL Follicul ar phase code = 2839-9) 0.1 - 0.9 Lut eal phase 1.8 - 23. 9 Ovulation phase 0.1 - 12.0 First trimester 11.0 - 44.3 Second trimester 25.4 - 83.3 Third trimester 58.7 - 214.0 Postmenop ausal 0.0 - 0.1 RISHI (test code = Performed at: 01 RISHI) - [facility] [id number] Director: Gerardo Nichols MD, Phone: [phone] [facility] HospitalQuvuwtNaflvqmylzub3999-93-02 04:07:00 Test Item Value Reference Range Interpretation Comments Progesterone (test 34.9 ng/mL Follicu lar phase code = 2839-9) 0.1 - 0.9 Lut eal phase 1.8 - 23. 9 Ovulation phase 0.1 - 12.0 First trimester 11.0 - 44.3 Second trimester 25.4 - 83.3 Third trim federico 58.7 - 214.0 Postmenopausal 0.0 - 0.1 RISHI (test code = Performed at: 01 RISHI) - [facility] [id number] Director: Gerardo Nichols MD, Phone: [phone] [facility] HospitalPOCT OB Urine [id number] 15:24:00 Test Item Value Reference Range Interpretation Comments Color, UA (test code Yellow Light Yellow, = 9796-4) Yellow Clarity, UA (test Clear Clear code = 50648-3) Glucose Urine, POC Negative (test code = 83335-3) Bilirubin Urine, POC Negative Negative (test code = 5770-3) Ketones Urine, POC Negative (test code = 2514-8) Specific [place] 1.020 SG Ratio See_Comment [Automat ed Urine, [...] Urine, POC Negative Negative (test code = 51799-0) Urobilinogen Urine, 1.0 pH units POC (test code = 0592146) Leukocyte Esterase Trace Negative A Urine, POC (test code = 4863027) Nitrite Urine, POC Negative Negative (test code = 1750910) Lab Interpretation Abnormal (test code = 40910-1) [facility] HospitalCERVICAL CANCER B SCREENING ONLY- NO [id number] 20:08:00 Test Item Value Reference Range Interpretation Comments Age Gdln ACOG 21-29 Testing (test code = 9909696) RISHI (test code = Specimen Comment: RISHI) Source.............Vagina Specimen Comment: No. of containers..01 ThinPrep VialPerformed at: 01 - [facility] [id number] Director: Gerardo Nichols MD, Phone: [phone] [facility] HospitalIGP, rfx Aptima HPV [id number] 20:08:00 Test Item Value Reference Interpretation Comments Range DIAGNOSIS: Comment NEGATIVE FOR (test code = INTRAEPITHELIAL LESION ) OR MALIGNANCY. Specimen Comment Satisfactory fo r adequacy: (test evaluation. code = ) Performed by: Comment Tessa Leos, (test code = Cytotechnologis t ) (ASCP) . (test code = . 20111221) Note: (test Comment The Pap smear i s a code = 1267494) screening te st designed to aid in [...] Comment: No. of containers..01 ThinPrep VialPerformed at: 02 - [facility] [address] [id number] Director: Lilibeth Pride MD, Phone: [phone] at: 03 - [facility] [id number] Director: Gerardo Nichols MD, Phone: [phone] [facility] HospitalCERVICAL CANCER B SCREENING ONLY- NO [id number] 20:08:00 Test Item Value Reference Range Interpretation Comments Age Gdln ACOG 21-29 Testing (test code = 20150301) RISHI (test code = Specimen Comment: RISHI) Source.............Vagina Specimen Comment: No. of containers..01 ThinPrep VialPerformed at: - [facility] [address] [id number] Director: Gerardo Nichols MD, Phone: [phone] [facility] HospitalIGP, rfx Aptima HPV [id number] 20:08:00 Test Item Value Reference Interpretation Comments [...] test (test code = was screened wi ) theuse of an im age guided system. . (test code = Comment The HPV DNA r eflex ) criteria were n ot met with this speci men resulttherefore , no HPV testing was performed. RISHI (test code Specimen Comment: = RISHI) Source............. VaginaSpecimen Comment: No. of containers..01 ThinPrep VialPerformed at: 02 - [facility] Xupkbfbxrg356[address] [facility] [address] [id number] Director: Lilibeth Pride MD, Phone: [phone] at: 03 - [facility] [address] [id number] Director: Gerardo Nichols MD, Phone: [phone] [facility] HospitalUltthree [facility] healthcare OB limited 1 + [id number] 16:25:00 Biparietal DiameterAbdominal CircumferenceFemur LengthHead CircumferenceHC/ACEstimated WeightSierra Vista HospitalUltthree rivers healthcare OB limited 1 + anypzkw3934-00-13 16:25:00Biparietal DiameterAbdominal CircumferenceFemur LengthHead CircumferenceHC/ACEstimated WeightMercy Southwest, [id number] 00:00:00 Test Item Value Reference Range Interpretation Comments APT Test (test code = low risk (male) 27566-7) [facility] HospitalAPTEvangelical Community [facility], [id number] 00:00:00 Test Item Value Reference Range Interpretation Comments APT Test (test code = low risk (male) 72165-8) [facility] HospitalTVP - OB transvaginal Zpolcwsdwy6167-27-01 14:26:00 Biparietal DiameterAbdominal CircumferenceFemoral DiameterHead CircumferenceHC/ACEstimated WeightCHI Methodist Hospital Of SacramentoTVP - OB transvaginal Wqgqcldjvw3333-72-99 14:26:00Biparietal DiameterAbdominal CircumferenceFemoral DiameterHead CircumferenceHC/ACEstimated WeightSierra Vista HospitalURINALYSIS, [id number] 00:07:00 Test Item Value Reference Range Interpretation Comments Specific [place], UA 1.021 1.005-1.03 (test code = 2965-2) pH, UA (test code = 6.0 5.0-7.5 5803-2) Color, UA (test code Yellow Yellow = 9796-4) Appearance (test code Cloudy Clear A = 1814624) WBC Esterase (test 2+ Negative A code = 5579603) Protein, UA (test Negative Negative/T code = 56546-7) Glucose, Urine (test Negative Negative code = 61608-1) Ketones, UA (test 3+ Negative A code = 2514-8) Blood, UA (test code Negative Negative = 18720-6) Bilirubin, UA (test Negative Negative code = 5770-3) Urobilinogen,Semi-Qn 1.0 mg/dL 0.2-1.0 (test code = 4346757) Nitrite, UA (test Negative Negative code = 59540-9) Microscopic See below: Microscopic was Examination (test indicated and was code = 0608202) performed. RISHI (test code = RISHI) Performed at: - [address] [id number] Director: Gerardo Nichols MD, Phone: [phone] Lab Interpretation Abnormal (test code = 33597-0) [facility] HospitalURINE CULTURE, [id number] 00:07:00 Test Item Value Reference Range Interpretation Comments Urine Culture, Final report Routine (test code = 8455313) Result 1 (test Comment Culture shows less code = 1724878) than 10,000 colony forming units o f bacteria permilliliter o f urine. This col marina count is not generally consideredto be clinically significant. RISHI (test code Performed at: - = RISHI) [facility] [id number] Director: Gerardo Nichols MD, Phone: [phone] [facility] HospitalMICROSCOPIC [id number] 00:07:00 Test Item Value Reference Range Interpretation [...] = RISHI) Performed at: - [facility] [address] [id number] Director: Gerardo Nichols MD, Phone: [phone] Lab Interpretation Abnormal (test code = 01841-3) [facility] HospitalChlamydia/GC ANA, [id number] 00:07:00 Test Item Value Reference Range Interpretation Comments Chlamydia trachomatis, Negative Negative ANA (test code = 15126-1) Neisseria gonorrhoeae, Negative Negative ANA (test code = 95684-6) RISHI (test code = RISHI) Performed at: - [facility] Cz[address]zyl[address] [id number] Director: David Goodwin MD, Phone: [phone] [facility] HospitalURINALYSIS, [id number] 00:07:00 Test Item Value Reference Range Interpretation Comments Specific [place], UA 1.021 1.005-1.03 (test code = 2965-2) pH, UA (test code = 6.0 5.0-7.5 5803-2) Color, UA (test code Yellow Yellow = 9796-4) Appearance (test code Cloudy Clear A = ) WBC Esterase (test 2+ Negative A code = 0760847) Protein, UA (test Negative Negative/T code = 56583-7) Glucose, Urine (test Negative Negative code = 11898-3) Ketones, UA (test 3+ Negative A code = 2514-8) Blood, UA (test code Negative Negative = 89248-7) Bilirubin, UA (test Negative Negative code = 5770-3) Urobilinogen,Semi-Qn 1.0 mg/dL 0.2-1.0 (test code = 5813322) Nitrite, UA (test Negative Negative code = 03708-7) Microscopic See below: Microscopic was Examination (test indicated and was code = 9454823) performed. RISHI (test code = RISHI) Performed at: [facility] [address] [id number] Director: Gerardo Nichols MD, Phone: [phone] Lab Interpretation Abnormal (test code = 89959-7) [facility] HospitalURINE CULTURE, [id number] 00:07:00 Test Item Value Reference Range Interpretation Comments Urine Culture, Final report Routine (test code = 4284280) Result 1 (test Comment Culture shows less code = 8759872) than 10,000 colony forming units o f bacteria permilliliter o f urine. This col marina count is not generally consideredto be clinically significant. RISHI (test code Performed at: - = RISHI) [facility] [address] [id number] Director: Gerardo Nichols MD, Phone: [phone] [facility] HospitalMICROSCOPIC [id number] 00:07:00 Test Item Value Reference Range Interpretation [...] RISHI (test code = RISHI) Performed at: [address] [id number] Director: Gerardo Nichols MD, Phone: [phone] Lab Interpretation Abnormal (test code = 72917-9) [facility] HospitalChlamydia/GC ANA, [id number] 00:07:00 Test Item Value Reference Range Interpretation Comments Chlamydia trachomatis, Negative Negative ANA (test code = 36290-7) Neisseria gonorrhoeae, Negative Negative ANA (test code = 06149-8) RISHI (test code = RISHI) Performed at: [address] [id number] Director: David Goodwin MD, Phone: [phone] [facility] HospitalHepatilincoln [facility] health system [facility] [id number] 14:11:00 Test Item Value Reference Range Interpretation Comments HBsAg Screen (test Negative Negative code = 5196-1) RISHI (test code = RISHI) Performed at: [address] [id number] Director: Gerardo Nichols MD, Phone: [phone] [facility] HospitalRubella antibody, [id number] 14:11:00 Test Item Value Reference Range Interpretation Comments Rubella 1.71 See_Comment Non-immune <0. 90 Antibodies, IgG Equivocal 0. 90 - (test code = 0.99 Immune >0. 99 5334-8) [Automated mess age] The system [employer] generated this result transmit jane reference range : Immune >0. inde x. The reference r robert was not used to interpret this result as normal/abnormal . RISHI (test code = Performed at: RISHI) [address] [id number] Director: Gerardo Nichols MD, Phone: [phone] [facility] HospitalHepatitis C [id number] 14:11:00 Test Item Value Reference Range Interpretation [...] (test Performed at: code = RISHI) - [facility] [id number] Director: Gerardo Nichols MD, Phone: [phone] [facility] HospitalHIV-1 Antigen with HIV-1/2 [id number] 14:11:00 Test Item Value Reference Range Interpretation Comments HIV Screen 4th Non Reactive Non Reacti HIV Generation wRfx NegativeHIV- 1/HIV- (test code = 2 antibodies an d ) HIV-1 p24 antig en were NOT detected.There is no laboratory evidence of HIV infection. RISHI (test code = Performed at: - RISHI) [facility] [id number] Director: Gerardo Nichols MD, Phone: [phone] [facility] HospitalABORH, [id number] 14:11:00 Test Item Value Reference Range Interpretation Comments ABO Grouping O (test code = 20110228) Rh Factor (test Positive Please note: Prior code = 20110301) records for this patient's ABO / Rh type are notavailable fo r additional verification. RISHI (test code = Performed at: - RISHI) [facility] [id number] Director: Gerardo Nichols MD, Phone: [phone] [facility] HospitalRPR (DX) W/REFL TITER AND CONFIRMATORY TESTING 2022-11-01 14:11:00 Test Item Value Reference Range Interpretation Comments RPR (test code = Non Reactive Non Reacti 20110302) RISHI (test code = Performed at: - RISHI) [address] [id number] Director: Gerardo Nichols MD, Phone: [phone] [facility] HospitalAntibody Screen ([facility] Only)2022-11-01 14:11:00 Test Item Value Reference Range Interpretation Comments Antibody Screen (test Negative Negative code = 20110224) RISHI (test code = RISHI) Performed at: - LabUniversity Media[address] [id number] Director: Gerardo Nichols MD, Phone: [phone] [facility] HospitalRubella antibody, [id number] 14:11:00 Test Item Value Reference Range Interpretation Comments Rubella 1.71 See_Comment Non-immune <0 .90 Antibodies, IgG Equivocal 0. 90 - (test code = 0.99 Immune >0. 99 5334-8) [Automated mess age] The system [employer] generated this result transmit jane reference range : Immune >0. inde x. The reference r robert was not used to interpret this result as normal/abnormal . RISHI (test code = Performed at: - RISHI) [address] [id number] Director: Gerardo Nichols MD, Phone: [phone] [facility] HospitalHepatitis C [id number] 14:11:00 Test Item Value Reference Range Interpretation [...] (test Performed at: code = RISHI) - [address] [id number] Director: Gerardo Nichols MD, Phone: [phone] [facility] HospitalAntibody Screen ([facility])2022-11-01 14:11:00 Test Item Value Reference Range Interpretation Comments Antibody Screen (test Negative Negative code = 6779620) RISHI (test code = RISHI) Performed at: - [address] [id number] Director: Gerardo Nichols MD, Phone: [phone] [facility] HospitalPOCT , [id number] 09:28:00 Test Item Value Reference Range Interpretation Comments Test Urine, POC (test code Positive = 1469754) Control line present?, POC (test Yes code = 7551394) Background clear?, POC (test code = Yes 9872926) UPT Cassette Lot #, POC (test code = 00497 4709086) UPT Cassette Expiration Date, POC 10/19/23 (test code = 9989989) [facility] HospitalPOCT , [id number] 09:28:00 Test Item Value Reference Range Interpretation Comments Test Urine, POC (test code Positive = 3732991) Control line present?, POC (test Yes code = 4417199) Background clear?, POC (test code = Yes 2793033) UPT Cassette Lot #, POC (test code = 42120 8343937) UPT Cassette Expiration Date, POC 10/19/23 (test code = 4218474) [facility]
[2023-06-07] MEDS ORDERED: NA CHLORIDE 0.9% 1,000 ML ONE (01:42)
--- NOTE | 2023-06-07 02:41 | ER ---
Nurse's Notes [facility] [place], [place] Koffi Name: Gary Mata Age: 28 yrs Sex: Female : 1995 Arrival Date: 06/06/2023 Time: 23:55 Bed 15 Private MD: Diagnosis: Syncope Presentation: 06/07 00:05 Chief complaint: Patient states: pt felt dizzy and stool up and had a syncopal episode. as6 Coronavirus screen: At this time, the client does not indicate any symptoms associated with coronavirus-19. Ebola Screen: No symptoms or risks identified at this time. Initial Sepsis Screen: Does the patient meet any 2 criteria? No. Patient's initial sepsis screen is negative. Does the patient have a suspected source of infection? No. Patient's initial sepsis screen is negative. Risk Assessment: Do you want to hurt yourself or someone else? Patient reports no desire to harm self or others. Onset of symptoms was June 07, 2023. 00:05 Method Of Arrival: Wheelchair as6 00:05 Acuity: CARLOS 3 as6 Triage Assessment: 02:00 Neuro: Reports PAIN TO LEFT CLAVICLE. 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 - Social history:: Smoking status: Patient denies any tobacco usage or history of. Screenin:[address] [facility] ED Fall Risk Assessment (Adult) History of falling in the last 3 months, jj7 including since admission No falls in past 3 months (0 pts) Confusion or Disorientation No (0 pts) Intoxicated or Sedated No (0 pts) Impaired Gait No (0 pts) Mobility Assist Device Used No (0 pt) Altered Elimination No (0 pt) Score/Fall Risk Level 0 - 2 = Low Risk Oriented to surroundings, Maintained a safe environment. Abuse screen: Denies threats or abuse. Nutritional screening: On. Nutritional screening: No deficits noted. Tuberculosis screening: No symptoms or risk factors identified. Assessment: 00:20 General: Appears in no apparent distress. comfortable, Behavior is calm, cooperative, jj7 appropriate for age. Pain: Complains of pain in left subscapular area Pain currently is 2 out of 10 on a pain scale. Neuro: No deficits noted. Level of Consciousness is awake, alert, obeys commands, Oriented to person, place, time, situation, Appropriate for age Application Trainer are equal bilaterally Moves all extremities. Full function Gait is steady, Speech is normal, Facial symmetry appears normal. Cardiovascular: No deficits noted. Rhythm is regular. Vital Signs: 00:05 BP 130 / 92; Pulse 86; Resp 18 S; Temp 98.1(TE); Pulse Ox 100% on R/A; Weight 99.79 kg as6 (R); Height 5 ft. 4 in. (R); Pain 2/10; 01:12 BP 128 / 97; Pulse 108; Resp 20; Pulse Ox 100% ; jj7 02:00 BP 125 / 96; Pulse 88; Resp 13; Pulse Ox 100% ; Pain 1/10; jj7 02:39 Pulse 95; ec2 03:07 BP 129 / 93; Pulse 78; Resp 14; Pulse Ox 100% ; jj7 00:05 Body Mass Index 37.76 (99.79 kg, 162.56 cm) as6 00:05 Pain Scale: Adult as6 02:00 Pain Scale: Adult jj7 ED Course: 06/06 23:59 Patient arrived in ED. kj1 06/07 00:07 Triage completed. as6 00:07 Arm band placed on. as6 00:08 Jamil Hicks, KYLE is Primary Nurse. jj7 00:08 Ziyad Urias MD is Attending Physician. ec2 00:20 Patient has correct armband on for positive identification. Bed in low position. Call jj7 light in reach. Side rails up X 1. Adult w/ patient. 00:20 No provider procedures requiring assistance completed. jj7 00:50 Inserted saline lock: 20 gauge in right antecubital area, using aseptic technique. jj7 Blood collected. 03:06 IV discontinued, intact, bleeding controlled, No redness/swelling at site. Pressure jj7 dressing applied. 03:11 Provided Education on: DISCHARGE INSTRUCTIONS. jj7 Administered Medications: 01:31 Drug: NS 0.9% IV 1000 ml IV at 1 bolus Per protocol; 1000 mL bolus Route: IV; Rate: 1 jj7 bolus; Site: right antecubital; 02:49 Follow up: IV Status: Completed infusion jj7 Medication: 00:20 VIS not applicable for this client. jj7 Outcome: 02:40 Discharge ordered by . ec2 03:07 Discharged to home ambulatory, with significant other, jj7 03:07 Condition: stable 03:07 Discharge instructions given to patient, Instructed on discharge instructions, 03:16 Patient left the ED. jj7 Signatures: Josefina Justin kj1 Daniel Murphy RN RN as6 Jamil Hicks RN RN jj7 Ziyad Urias MD MD ec2
--- NOTE | 2023-06-07 02:41 | EDPHYS ---
Physician Documentation [facility] Name: Gary Mata Age: 28 yrs Sex: Female : 1995 Arrival Date: 06/06/2023 Time: 23:55 Bed 15 Private MD: ED Physician Ziyad Urias HPI: 06/07 00:20 This 28 yrs old Female presents to ER via Wheelchair with complaints of ec2 Palpitations, Syncope. 00:20 Patient arrives today for syncopal episode. Patient reports that she was going from a ec2 sitting to a standing position which subsequently syncopized after she felt lightheaded. Patient reports no chest pain or shortness of breath, states that she did feel some palpitations. Does report a history of hypothyroidism and is on thyroid supplementation. Patient reports no infectious symptoms recently, no fevers or chills, no nausea or vomiting, no diarrhea, no urinary problems. Patient is recently , denies any foul-smelling lochia.. 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 - Social history:: Smoking status: Patient denies any tobacco usage or history of. ROS: 00:20 Constitutional: syncope ec2 Exam: 00:20 Constitutional: GEN: NAD Head: atraumatic Eyes: EOMI Ears: External ears are ec2 normal. CV: regular rate LUNGS: no respiratory distress, no wheezes, rales, or rhonchi ABD: non-distended, soft, nontender, no guarding, nonrigid SKIN abrasion noted to the left lateral ribs, minimal tenderness palpation, no deformities MSK: no evidence of trauma NEURO: moves all extremities equally Vital Signs: 00:05 BP 130 / 92; Pulse 86; Resp 18 S; Temp 98.1(TE); Pulse Ox 100% on R/A; Weight 99.79 kg as6 (R); Height 5 ft. 4 in. (R); Pain 2/10; 01:12 BP 128 / 97; Pulse 108; Resp 20; Pulse Ox 100% ; jj7 02:00 BP 125 / 96; Pulse 88; Resp 13; Pulse Ox 100% ; Pain 1/10; jj7 02:39 Pulse 95; ec2 03:07 BP 129 / 93; Pulse 78; Resp 14; Pulse Ox 100% ; jj7 00:05 Body Mass Index 37.76 (99.79 kg, 162.56 cm) as6 00:05 Pain Scale: Adult as6 02:00 Pain Scale: Adult jj7 MDM: 00:08 Patient medically screened. ec2 00:09 Data reviewed: vital signs. ED course: EKG independently reviewed and interpreted by ec2 me, shows normal sinus rhythm, rate of 76, no acute ST segment elevations, nonconcerning intervals.. 00:20 ED course: Patient arrives today for evaluation after syncopal episode. Examination ec2 remarkable for well-appearing nontoxic individual with reassuring vital signs. Will obtain lab work, chest x-ray with rib series and give the patient crystalloid. EKG already reviewed by me as above. Currently considering process such as electrolyte disturbances, anemia, rib fracture, additionally considered arrhythmia however not evident on EKG.. 02:31 ED course: CBC is remarkable for reassuring blood counts, minimal anemia noted, ec2 metabolic profile is pertinent for appropriate electrolytes and appropriate renal function. Thyroid studies are within appropriate ranges.. 02:40 ED course: Initial had order chest x-ray as well as rib series however patient with ec2 improving symptoms, no difficulty breathing, I clinically have a low index suspicion for rib fractures or underlying lung pathology, will cancel these x-rays. I reassessed the patient and she is otherwise well-appearing in no acute distress, will discharge patient home have her follow the primary care doctor. Return precautions given.. 06/07 00:12 Order name: Basic Metabolic Panel ec2 06/07 00:12 Order name: CBC with Diff ec2 06/07 00:12 Order name: LFT's ec2 06/07 00:12 Order name: Troponin HS ec2 06/07 00:12 Order name: Urinalysis w/ reflexes ec2 06/07 00:59 Order name: T4 Free EDMS 06/07 00:59 Order name: Thyroid Stimulating Hormone EDMS 06/07 00:12 Order name: EKG; Complete Time: 00:12 ec2 06/07 00:12 Order name: Cardiac monitoring; Complete Time: 00:31 ec2 06/07 00:12 Order name: EKG - Nurse/Tech; Complete Time: 00:12 ec2 06/07 00:12 Order name: IV Saline Lock; Complete Time: 00:52 ec2 06/07 00:12 Order name: Labs collected and sent; Complete Time: 00:52 ec2 06/07 00:12 Order name: O2 Per Protocol; Complete Time: 00:53 ec2 06/07 00:12 Order name: O2 Sat Monitoring; Complete Time: 00:53 ec2 Administered Medications: 01:31 Drug: NS 0.9% IV 1000 ml IV at 1 bolus Per protocol; 1000 mL bolus Route: IV; Rate: 1 jj7 bolus; Site: right antecubital; 02:49 Follow up: IV Status: Completed infusion jj7 Disposition Summary: 06/07/23 02:40 Discharge Ordered Notes: Location: Home ec2 Condition: Stable ec2 Diagnosis - Syncope ec2 Discharge Instructions: - Discharge Summary Sheet ec2 - Syncope, Gyda-fl-Evob ec2 Forms: - Medication Reconciliation Form ec2 - Thank You Letter ec2 - Antibiotic Education ec2 - Prescription Opioid Use ec2 - Patient Portal Instructions ec2 - Leadership Thank You Letter ec2 Signatures: Dispatcher [employer] Daniel Huddleston RN RN as6 Jamil Hicks RN RN jj7 Ziyad Urias MD MD ec2 Corrections: (The following items were deleted from the chart) 00:58 00:20 THYROID STIMULAT HORMONE+C.LAB.BRZ ordered. EDMS EDMS 00:58 00:20 T4 FREE+C.LAB.BRZ ordered. EDMS EDMS
[2023-06-07 03:59] LABS: Absolute Lymphocytes (CBC) 1.8 K/uL (0.7-4.9); Hematocrit 36.3 % (36.0-45.0); MCV 81.9 fL (80-100); MPV 7.8 fL (7.6-11.3); Platelets 332 thou/uL (152-406); RBC Red Blood Cell Count 4.43 M/uL (3.86-4.86)
[2023-06-07 04:00] LABS: ALT/SGPT 12 U/L (13-56); AST/SGOT 5 U/L (15-37); Albumin 2.6 g/dL (3.4-5.0); Alkaline Phosphatase 70 U/L (45-117); BUN Blood Urea Nitrogen 16 mg/dL (7-18); Bicarbonate 28 mEq/L (21-32); Bilirubin Direct < 0.1 mg/dL (0-0.2); Bilirubin Indirect, Calculated ND mg/dL (0.2-0.8); Bilirubin Total 0.2 mg/dL (0.2-1.0); Glomerular Filtration Rate 123 ml/min (=/>90); Glucose Level 100 mg/dL (74-106); Potassium 3.7 mEq/L (3.5-5.1); Protein, Total 6.9 g/dL (6.4-8.2); Sodium Level 141 mEq/L (136-145)
[2023-06-07 04:03] LABS: Renal Epithelial <5 /HPF (None Seen); Specific Gravity 1.012 (1.005-1.030); Urine Bacteria <20 /HPF (<20); Urine Bilirubin NEGATIVE (Negative); Urine Blood 3+ (OVER) (Negative); Urine Clarity Extremely Turbid (Clear); Urine Color Light-Yellow (Yellow); Urine Glucose NEGATIVE (Negative); Urine Mucus Slight /HPF (None Seen); Urine Protein NEGATIVE (Negative); Urine RBC <5 /HPF (None Seen); Urine Urobilinogen Normal (Normal); Urine pH 5.5 (5.0-7.0)
[2023-06-07 05:51] VITALS: TEMP 98.1; O2SAT 100
[2023-06-07 05:56] VITALS: BP 129/93
--- NOTE | 2023-06-07 12:24 | EKG ---
Test Date: 2023-06-07 Test Time: 00:05:32 Patient Relations Specialist: [place] MEASUREMENT RESULTS: Intervals: Rate: 76 AK: 160 QRSD: 82 QT: 378 QTc: 425 [place]: P: 54 AK: 160 QRS: 17 T: 60 INTERPRETIVE STATEMENTS: Normal sinus rhythm with sinus arrhythmia Cannot rule out Anterior infarct, age undetermined Abnormal ECG No previous ECG available for comparison Electronically Signed On 06-07-23 12:23:09 CDT by Matthew Tavares
== END 2023-06-07 03:16 | disposition home or self-care (01) ==
LOC: ER 23:55
DX: R55 Syncope and collapse (principal); R00.2 Palpitations; E03.9 Hypothyroidism, unspecified
CPT/HCPCS: 93005; 87088; 85025; 81001; 87086; 80048; 36415; 80076; 84443; 84484; 84439; J7030